=== PATIENT | male | born 1960 | race Caucasian/White ===

== ENCOUNTER 2020-08-08 10:00 | Outpatient (RCR) | payer MEDICARE, MEDICAID, SELFPAY ==
--- NOTE | 2020-08-08 17:27 | MHC.PT.EP ---
[facility] [place] Office [place] Office [place] Office [address] Coby Ponce [address] [phone] F: [phone] F: [phone] F: [phone] F: [phone] Physical Therapy Plan of Care Date of Evaluation: 08/08/20 Date of Surgery: Diagnosis: L knee pain. Assessment: Pt is a 59 y/o male with Hx of undefined cognitive deficits including poor short term memory who is referred to PT for eval and treat of L knee pain. Pt had recent seen this therapist for treatment of LBP/ knee pain though he does not remember this therapist. His knee pain is limiting his tolerance for negotiating stairs and curbs, as well as walking for fitness secondary to decreased B hip and knee strength, body habitus, as well as psychological factors which impact Pt's ability to be consistent with his daily activity. Pt is deemed an appropriate candidate to receive skilled PT in order to address his physical limitations to improve his functional ability. Frequency and Duration: The patient will be seen 2 x /wk x 5 wks. Short Term Goals: In 2 weeks: initiate HEP with evidence of compliance. Studio Technician Goals: In 5 weeks: Pt will report able to walk 1 mile with at most moderate difficulty; initial: unable or extreme difficulty. In 5 weeks: Pt will report negotiating 1 fl of stairs with at most moderate difficulty; initial: unable or extreme difficulty. Treatment Plan: Modalities to reduce pain, spasms and effusion. Manual therapy to restore motion and function. Therapeutic exercise to improve strength and flexibility. Neuromuscular re-education for posture and balance. Therapeutic activities to return to functional activities of daily living. Electronically signed by: Darci Walton PT. Please sign and return to therapist. Thank you for your referral.
== END 2020-12-27 19:39 | disposition home or self-care (01) ==
LOC: HO.PTCHIC 10:00
PROVIDERS: PCP Internal Medicine; Visit Provider Nurse Practitioner Family
DX: M25.562 Pain in left knee (principal)
CPT/HCPCS: 97110; 97162

== ENCOUNTER 2020-11-11 07:55 | Outpatient (REF) | payer MEDICARE, MEDICAID, SELFPAY ==
[2020-11-11 11:26] LABS: MANUAL DIFF FLAG NO
[2020-11-11 11:39] LABS: Basophils Absolute Auto 0.1 X10*3/uL (0.0-0.2); Basophils Percent Auto 0.7 % (0-2); Eosinophils Absolute Auto 0.3 X10*3/uL (0.0-0.4); Hemoglobin 13.6 g/dl (14.0-18.0); Imm Gran Abs Auto 0.04 X10*3/uL (0.00-0.03); Imm Gran Pct Auto 0.5 % (0.0-0.4); Lymphocytes Absolute Auto 1.6 X10*3/uL (1.2-4.9); Lymphocytes Percent Auto 19.4 % (20-40); Mean Corpuscular HGB Conc 32.4 g/dl (31.0-36.0); Mean Corpuscular Hemoglobin 27.5 pg (27.0-33.0); Mean Corpuscular Volume 84.8 fL (80-98); Mean Platelet Volume 10.6 fL (9.4-12.4); Monocytes Absolute Auto 0.6 X10*3/uL (0.1-1.2); Monocytes Percent Auto 6.8 % (2-11); Neutrophils Absolute Auto 5.7 X10*3/uL (2.0-8.3); Neutrophils Percent Auto 68.6 % (45-73); Platelet Count 256 X10*3/uL (160-400); Red Blood Count 4.95 X10*6/uL (4.60-5.80); Red Cell Distribution Width 14.6 % (11.0-16.0); White Blood Count 8.3 X10*3/uL (4.8-10.8)
[2020-11-11 12:04] LABS: Alanine Aminotransferase 17 U/L (0-40); Alkaline Phosphatase 104 U/L (39-117); Anion Gap 14 (12-20); Aspartate Amino Transferase 14 U/L (5-37); Bilirubin Total 0.3 mg/dL (0.0-1.0); Blood Urea Nitrogen 15 mg/dL (9-16); Calcium 9.1 mg/dL (8.4-10.2); Carbon Dioxide 26 mmol/L (22-29); Chloride 103 mmol/L (96-108); Cholesterol 163 mg/dL; Estimated Glomerular Filt Rate > 60; Glucose Fasting 132 mg/dL (60-99); HDL Cholesterol 57 mg/dL; LDL Cholesterol Calculated 89 mg/dl; Potassium 4.4 mmol/L (3.3-5.1); Sodium 139 mmol/L (135-145); Total Protein 7.3 g/dL (6.5-8.0); Triglycerides 87 mg/dL
[2020-11-11 12:07] LABS: TSH reflex Free T4 1.43 uIU/mL (0.32-4.0)
== END 2020-11-11 07:56 | disposition home or self-care (01) ==
LOC: HO.HMGCLDS 07:55
PROVIDERS: PCP Internal Medicine; Visit Provider Internal Medicine
DX: B35.1 Tinea unguium (principal); E66.01 Morbid (severe) obesity due to excess calories; I10 Essential (primary) hypertension; R21 Rash and other nonspecific skin eruption; R26.9 Unspecified abnormalities of gait and mobility; G47.9 Sleep disorder, unspecified
CPT/HCPCS: 36415; 80048; 80053; 80061; 84443; 85025

== ENCOUNTER → 2021-02-07 08:47 | Outpatient (BNVA) | payer MEDICARE, MEDICAID, SELFPAY | PROVIDERS: PCP Internal Medicine; Referring Provider Internal Medicine; Visit Provider Psychiatry & Neurology Neurology | DX: E66.01 Morbid (severe) obesity due to excess calories (principal); G47.33 Obstructive sleep apnea (adult) (pediatric); G47.00 Insomnia, unspecified; Z99.89 Dependence on other enabling machines and devices | CPT/HCPCS: 99202 ==

== ENCOUNTER 2021-05-22 11:08 | Emergency (ER) | payer MEDICARE, MEDICAID, SELFPAY ==
--- NOTE | 2021-05-22 11:19 | ED_ITS ---
HPI - Nausea/Vomiting/Diarrhea General Chief complaint: General Medical Stated complaint: NAUSEA, VOMITING Time Seen by Provider: 05/22/21 11:19 Source: patient Mode of arrival: EMS Limitations: no limitations History of Present Illness HPI Narrative: vaccinated x 3 MD elicited complaint: nausea, vomiting and diarrhea Onset (ago): day(s) (4) Description of vomiting: food contents and watery Associated nausea: Yes Associated abdominal pain: Yes Location of pain: diffuse Radiation: diffuse Pain consistency: intermittent Severity: mild Quality: cramping Exacerbating factors: eating Relieving factors: none Context: sick contacts (exposed to COVID 4 days ago) Associated symptoms: headaches, loss of appetite, malaise and nausea/vomiting Related Data Home Medications Medication Instructions Recorded Confirmed diazepam 5 mg tablet mg PO PRN 02/07/21 02/14/21 Previous Rx's Medication Instructions Recorded Shower chair #1 ea 02/21/21 empty container #1 ea 02/21/21 shower grab bars #1 02/21/21 polymyxin B sulfate 10,000 1 drp OPHTHALMIC (EYE) QID 7 Days 03/18/21 unit-trimethoprim 1 mg/mL eye #10 ml drops (Polytrim) lisinopril 5 mg tablet 5 mg PO DAILY 30 Days #30 tab 05/08/21 amlodipine 10 mg tablet 10 mg PO DAILY 90 Days #90 tab 05/15/21 ondansetron 4 mg disintegrating 4 mg PO Q8H PRN #20 tab 05/22/21 tablet Allergies Allergy/AdvReac Type Severity Reaction Status Date / Time codeine [CODEINE] Allergy Severe ANAPHYLAXIS, Verified 05/22/21 11:31 hives Codeine Allergy Unknown Hives Uncoded 05/22/21 11:31 Review of Systems Review of Systems: Constitutional : No Weight loss, No Fever, No Chills, pos malaise ENT/Mouth : No sore throat, No Rhinorrhea Eyes: No Swelling, No Redness Cardiovascular : No Chest Pain, No SOB, NoEdema Respiratory : No Cough, No Sputum, No Wheezing Gastrointestinal : Positive Nausea, Positive Vomiting, positive Diarrhea, positive abdominal Pain, No Hematochezia, No Melena Genitourinary : No Dysuria, No Urinary Frequency, No Hematuria, No Urgency Musculoskeletal : No joint pain, No Myalgias, No Joint Swelling Skin : No Skin Lesions, No rash Neuro : No Weakness, No Numbness, No Dizziness, No Headache Psych : No Anxiety/Panic, No Depression Heme/Lymph: No Bruising, No Lymphadenopathy Endocrine : No Polyuria, No Polydipsia All other systems reviewed and are negative. Gastrointestinal: Gastrointestinal: Reports nausea PMFSH Past Medical History Medical History Gait difficulty Hypertension, essential Memory deficit Morbid obesity Rash Toenail fungus Family History Family History Other Substance use disorder Social History Social History Housing: House Alcohol intake: never Patient Tobacco Use Status: Former Tobacco user (doesn't remember how long, but years ago ) e-Cigarette/Vaping Use: Never Used Second Hand Smoke Exposure: No Advance Directives: Yes Advance Directives Information Provided: No Advance Directives on File: No service: No Current occupational status: other Physical Exam Vital Signs: Vital Signs: Last Vital Signs Temp 98.4 F 05/22/21 11:20 Pulse 94 05/22/21 11:20 Resp 20 05/22/21 11:20 BP 123/90 H 05/22/21 11:20 Pulse Ox 97 05/22/21 11:20 BMI result Body Mass Index 47.5 Appearance: Alert. Oriented X3. No acute distress. Anxious Eyes: Pupils equal, round and reactive to light. ENT: Pharynx mild dry MM Neck: Normal inspection. Neck supple. CVS: Normal heart rate and rhythm. Pulses normal. Respiratory: No respiratory distress. Breath sounds normal. Abdomen: Soft and mild diffuse ttp Skin: Skin warm and dry. Normal skin color. Normal skin turgor. Extremities: No lower extremity edema. No calf ttp Neuro: Oriented X 3. No motor deficit. No sensory deficit. Course Course Course Narrative: tolerating PO - stable VS, labs reassuring , suspect COVID given exposure and symptoms MDM - Nausea/Vomiting/Diarrhea MDM Narrative Medical decision making narrative: 60 yo male with hx of HTN, NUBIA, vaccinated x 3 here with COVID exposure 5 days ago reports n/v/d and abdominal cramps with malaise for 4 days suspects COVID - at this time will obtain basic labs, IVF, anti-emetics. Has no localizing pain at this time to suggest GB or appendicitis pathology. Denies CP/SOB. At this time dispo per results and findings as well as PO tolerance. Lab Data Result diagrams: 05/22/21 11:48 05/22/21 11:48 Labs: Lab Results 05/22/21 05/22/21 05/22/21 Range/Units 11:35 11:48 11:48 WBC 12.1 H (4.8-10.8) X10*3/uL RBC 4.96 (4.60-5.80) X10*6/uL Hgb 14.3 (14.0-18.0) g/dl Hct 41.0 L (42.0-52.0) % MCV 82.7 (80.0-98.0) fL MCH 28.8 (27.0-33.0) pg MCHC 34.9 (31.0-36.0) g/dl RDW 13.9 (11.0-16.0) % Plt Count 212 (160-400) X10*3/uL MPV 9.8 (9.4-12.4) fL Immature Gran % (Auto) 0.6 H (0.0-0.4) % Neut % (Auto) 83.7 H (45-73) % Lymph % (Auto) 6.3 L (20-40) % Cavalier % (Auto) 8.7 (2-11) % Eos % (Auto) 0.4 (0-4) % Baso % (Auto) 0.3 (0-2) % Lymph # (Auto) 0.8 L (1.2-4.9) X10*3/uL Cavalier # (Auto) 1.1 (0.1-1.2) X10*3/uL Eos # (Auto) 0.1 (0.0-0.4) X10*3/uL Baso # (Auto) 0.0 (0.0-0.2) X10*3/uL Abs Immat Gran (auto) 0.07 H (0.00-0.03) X10*3/uL Absolute Neuts (auto) 10.2 H (2.0-8.3) x10*3/uL Absolute Nucleated RBC 0.000 (0.0-0.012) X10*3/uL Nucleated RBC % (auto) 0.0 (0.0-0.2) /100WBC Sodium 133 L (135-145) mmol/L Potassium 3.6 (3.3-5.1) mmol/L Chloride 100 (96-108) mmol/L Carbon Dioxide 23 (22-29) mmol/L Anion Gap 14 (12-20) BUN 12 (9-16) mg/dL Creatinine 1.07 (0.5-1.4) mg/dL Estim Creat Clear Calc 114.6 Estimated GFR > 60 Random Glucose 190 H (60-115) mg/dL Calcium 8.5 D (8.4-10.2) mg/dL Magnesium 2.0 (1.6-2.6) mg/dL Total Bilirubin 0.8 (0.0-1.0) mg/dL Direct Bilirubin 0.4 (0.0-0.5) mg/dL AST 33 D (5-37) U/L ALT 36 (0-40) U/L Alkaline Phosphatase 96 (39-117) U/L Total Protein 6.8 (6.5-8.0) g/dL Albumin 3.4 L (3.5-5.0) g/dL Lipase 8 (8-78) U/L COVID-19 (SHEMAR) Negative (Negative) COVID-19 Clin Com See Note Discharge Plan Discharge Clinical Impression: Acute viral syndrome Vomiting Qualifiers: Vomiting type: unspecified Nausea presence: with nausea Qualified Code(s): R11.2 - Nausea with vomiting, unspecified Instructions: Acute Nausea and Vomiting (ED), Viral Syndrome (ED) Additional Instructions: return to ED for any worsening symptoms or concerns COVID negative but can retest in 2 days, stay hydrated, monitor your breathing if you become so short of breath you cannot walk to your bathroom seek immediate medical help Prescriptions: New ondansetron 4 mg tablet,disintegrating 4 mg PO Q8H PRN (Reason: nausea and vomiting) Qty: 20 RF: 0 No Action (DME) Shower chair See Rx Instructions .Route .MEDSUPPLY Qty: 1 RF: 0 (DME) shower grab bars Standard 0 .Route .MEDSUPPLY Qty: 1 RF: 0 (DME) empty container Misc See Rx Instructions .Route Qty: 1 RF: 0 lisinopril 5 mg tablet 5 mg PO DAILY 30 Days Qty: 30 RF: 0 amlodipine 10 mg tablet 10 mg PO DAILY 90 Days Qty: 90 RF: 0 polymyxin B sulf-trimethoprim [Polytrim] 10,000 unit- 1 mg/mL drops 1 drp ophthalmic (eye) QID 7 Days Qty: 10 RF: 0 diazepam 5 mg tablet PO PRNRF: 0 Stand Alone Forms: Work/School Release
[2021-05-22 11:20] VITALS: BP 123/90; BP 150/80; PULSE 84; PULSE 94; RESP 20; TEMP 36.9; O2SAT 97; BMI 47.5
[2021-05-22 11:52] LABS: MANUAL DIFF FLAG NO
[2021-05-22 11:53] LABS: Basophils Percent Auto 0.3 % (0-2); Eosinophils Absolute Auto 0.1 X10*3/uL (0.0-0.4); Eosinophils Percent Auto 0.4 % (0-4); Hemoglobin 14.3 g/dl (14.0-18.0); Imm Gran Abs Auto 0.07 X10*3/uL (0.00-0.03); Imm Gran Pct Auto 0.6 % (0.0-0.4); Lymphocytes Absolute Auto 0.8 X10*3/uL (1.2-4.9); Lymphocytes Percent Auto 6.3 % (20-40); Mean Corpuscular HGB Conc 34.9 g/dl (31.0-36.0); Mean Corpuscular Hemoglobin 28.8 pg (27.0-33.0); Mean Corpuscular Volume 82.7 fL (80.0-98.0); Mean Platelet Volume 9.8 fL (9.4-12.4); Monocytes Absolute Auto 1.1 X10*3/uL (0.1-1.2); Monocytes Percent Auto 8.7 % (2-11); Neutrophils Absolute Auto 10.2 x10*3/uL (2.0-8.3); Neutrophils Percent Auto 83.7 % (45-73); Platelet Count 212 X10*3/uL (160-400); Red Blood Count 4.96 X10*6/uL (4.60-5.80); Red Cell Distribution Width 13.9 % (11.0-16.0); White Blood Count 12.1 X10*3/uL (4.8-10.8)
[2021-05-22 11:56] LABS: COVID-19 Test Negative (Negative); IDNOW Serial# 55D5AD1C
[2021-05-22 12:08] LABS: Alanine Aminotransferase 36 U/L (0-40); Albumin Level 3.4 g/dL (3.5-5.0); Alkaline Phosphatase 96 U/L (39-117); Anion Gap 14 (12-20); Aspartate Amino Transferase 33 U/L (5-37); Bilirubin Direct 0.4 mg/dL (0.0-0.5); Bilirubin Total 0.8 mg/dL (0.0-1.0); Blood Urea Nitrogen 12 mg/dL (9-16); Calcium 8.5 mg/dL (8.4-10.2); Carbon Dioxide 23 mmol/L (22-29); Chloride 100 mmol/L (96-108); Creatinine Clr Calc Pharmacy 114.6; Estimated Glomerular Filt Rate > 60; Glucose Random 190 mg/dL (60-115); Lipase 8 U/L (8-78); Potassium 3.6 mmol/L (3.3-5.1); Sodium 133 mmol/L (135-145); Total Protein 6.8 g/dL (6.5-8.0)
[2021-05-22] MEDS: 0.9 % Sodium Chloride 1,000 ML 999 ML IVCONT (12:39)
[2021-05-22] MEDS: Metoclopramide HCl 10 MG/2 ML VIAL IVPUSH (12:39)
[2021-05-22] MEDS: diphenhydrAMINE HCL 50 MG/ML VIAL 25 MG IVPUSH (12:39)
[2021-05-22] MEDS: Acetaminophen 325 MG TABLET 650 MG PO (14:37)
== END 2021-05-22 16:25 | disposition home or self-care (01) ==
LOC: HO.ED 11:33
PROVIDERS: Emergency Provider Emergency Medicine; PCP Internal Medicine
DX: B34.9 Viral infection, unspecified (principal); R11.2 Nausea with vomiting, unspecified; Z20.822 Contact with and (suspected) exposure to COVID-19; I10 Essential (primary) hypertension
CPT/HCPCS: 80048; 80076; 83690; 83735; 85025; 87635; 96361; 96374; 96375; 99283; 99284; J1200; J2765

== ENCOUNTER → 2021-11-15 13:47 | Outpatient (BNVA) | payer MEDICARE, MEDICAID, SELFPAY | PROVIDERS: PCP Internal Medicine; Visit Provider Nurse Practitioner Family | DX: G47.33 Obstructive sleep apnea (adult) (pediatric) (principal); Z99.89 Dependence on other enabling machines and devices | CPT/HCPCS: 99212 ==

== ENCOUNTER 2022-02-02 09:20 | Outpatient (REF) | payer MEDICARE, MEDICAID, SELFPAY ==
--- NOTE | ~2022-02-02 | US_ITS ---
EXAMINATION: US ABDOMEN COMPLETE CLINICAL INFORMATION: Right upper quadrant pain. Evaluate liver and rule out hernia. COMPARISON: CT abdomen and pelvis 01/21/2017. TECHNIQUE: Real-time imaging of the abdominal viscera. Technically limited study secondary to body habitus. FINDINGS: PANCREAS: Not well visualized due to bowel gas ABDOMINAL AORTA: Not well visualized due to bowel gas INFERIOR VENA CAVA: Not well visualized due to bowel gas LIVER: Liver echotexture is increased. The liver contour is normal. No focal hepatic lesion. There is no intrahepatic biliary duct dilatation seen. GALLBLADDER: Surgically absent. COMMON BILE DUCT: Normal in caliber measuring 0.59 cm in diameter. RIGHT KIDNEY: Normal. No hydronephrosis. No renal calculi or focal parenchymal lesions. The kidney measures 13.3 cm in maximum dimension. LEFT KIDNEY: Normal. No hydronephrosis. No renal calculi or focal parenchymal lesions. The kidney measures 12.3 cm in maximum dimension. SPLEEN: Normal. The spleen measures 12.0 cm in maximum dimension. FREE FLUID: None. No obvious hernia seen by ultrasound US/US abdomen complete IMPRESSION: Limited exam. Echogenic liver probably representing fatty infiltration. No hernia appreciated by ultrasound.
== END 2022-02-02 09:21 | disposition home or self-care (01) ==
LOC: HO.HMGCX 09:20
PROVIDERS: Visit Provider Internal Medicine
DX: R10.11 Right upper quadrant pain (principal)
CPT/HCPCS: 76700

== ENCOUNTER → 2022-05-21 13:11 | Outpatient (BNVA) | payer MEDICARE, MEDICAID, SELFPAY | PROVIDERS: PCP Internal Medicine; Visit Provider Nurse Practitioner Family | DX: G47.33 Obstructive sleep apnea (adult) (pediatric) (principal); Z99.89 Dependence on other enabling machines and devices | CPT/HCPCS: 99212 ==

== ENCOUNTER 2022-06-23 07:51 | Outpatient (REF) | payer MEDICARE, MEDICAID, SELFPAY ==
[2022-06-23 12:07] LABS: Alanine Aminotransferase 19 U/L (0-40); Albumin Level 3.9 g/dL (3.5-5.0); Alkaline Phosphatase 76 U/L (39-117); Anion Gap 16 (12-20); Aspartate Amino Transferase 13 U/L (5-37); Bilirubin Total 0.6 mg/dL (0.0-1.0); Blood Urea Nitrogen 16 mg/dL (9-16); Calcium 8.9 mg/dL (8.4-10.2); Carbon Dioxide 24 mmol/L (22-29); Chloride 105 mmol/L (96-108); Estimated Glomerular Filt Rate > 60; Glucose Random 124 mg/dL (60-115); Potassium 4.2 mmol/L (3.3-5.1); Sodium 141 mmol/L (135-145)
== END 2022-06-23 07:52 | disposition home or self-care (01) ==
LOC: HO.HMGCLDS 07:51
PROVIDERS: PCP Internal Medicine; Visit Provider Internal Medicine
DX: E66.01 Morbid (severe) obesity due to excess calories (principal); I10 Essential (primary) hypertension
CPT/HCPCS: 36415; 80053

== ENCOUNTER → 2022-07-20 08:59 | Outpatient (BNVA) | payer MEDICARE, MEDICAID, SELFPAY | PROVIDERS: PCP Nurse Practitioner Family; Visit Provider Nurse Practitioner Family | DX: G47.33 Obstructive sleep apnea (adult) (pediatric) (principal); Z99.89 Dependence on other enabling machines and devices | CPT/HCPCS: 99212 ==

== ENCOUNTER → 2022-08-13 19:30 | Outpatient (REF) | payer MEDICARE, MEDICAID, SELFPAY | LOC: HO.SL 19:30 | PROVIDERS: PCP Nurse Practitioner Family; Visit Provider Nurse Practitioner Family | DX: G47.33 Obstructive sleep apnea (adult) (pediatric) (principal) | CPT/HCPCS: 95811 ==

== ENCOUNTER 2022-11-14 09:06 | Outpatient (AMB) | payer MEDICARE, MEDICAID, SELFPAY ==
[2022-11-14 09:10] VITALS: BP 160/72; PULSE 85; O2SAT 94; BMI 52.0
--- NOTE | 2022-11-14 09:10 | A.OFFPC_ITS ---
Vital Signs 11/14/22 09:10 Height 6 ft 1 in Weight 394 lb BMI 52.0 BP 160/72 H Blood Pressure Location Lt brachial Position Sitting Pulse 85 Pulse Source Pulse Oximeter Pulse Oximetry (%) 94 Oxygen Delivery Method Room Air Intake Visit Reasons: PE Allergies codeine [CODEINE] Allergy (Severe, Verified 11/14/22 09:12) ANAPHYLAXIS, hives Tobacco use date assessed: 11/14/22 Fall risk assessment: No Falls in past year Last assessed Fall Risk: 11/14/22 Dental Screening Dental Screen Date: 11/14/22 Did you have a dental visit in the last 12 months?: No Did you have a dental problem in the last 6 months where you did not have access to dental care?: No Was dental information given to patient?: No HPI PE HPI Details Pt is here for a PE. Will order labs. Pt uses a CPAP daily. Due for PSA, will order. Denies dribbling with urination, weak stream, and nocturia. Due for colon screen, will refer to GI. Pt c/o increased depression. He sees a therapist weekly. Will have team speak with pt. Denies any SI and HI. Hx of memory deficit since 2003, unknown cause. [facility] Medical History Agoraphobia Anxiety COVID-19 vaccine series completed Depression Gait difficulty GERD (gastroesophageal reflux disease) Hypertension, essential Impaired fasting glucose Memory deficit Morbid obesity Rash Sleep apnea TIA (transient ischemic attack) Toenail fungus Surgical History H/O colonoscopy History of esophagogastroduodenoscopy (EGD) Hx of appendectomy Hx of arthroscopic knee surgery Hx of cholecystectomy Family History Sister Dementia Other Substance use disorder Social History Housing: House Are you a primary child care provider to a significant other at home: No Do you presently have visiting nurse or other home services: No Alcohol intake: never Patient Tobacco Use Status: Former Tobacco user Quit Date: age 40 Tobacco use type: Cigarette e-Cigarette/Vaping Use: Never Used Second Hand Smoke Exposure: No Substance Use Type: Marijuana service: No Current occupational status: other Cognitive needs: No Hearing needs: No Vision needs: Yes Questionnaire Thrive Questionnaire Date Thrive assessed: 11/11/20 AUDIT C Alcohol Use Questionnaire (AUDIT-C) 1. How often do you have a drink containing alcohol?: Never 3. How often do you have six or more drinks on one occasion?: Never Total Score: 0 Review of Systems Const Denies chills and Denies fever(s) Eyes Denies blurry vision ENT Denies vertigo, Denies dizziness and Denies sore throat Card Denies chest pain at rest, Denies chest pain with activity, Denies diaphoresis, Denies dyspnea and Denies dyspnea on exertion Resp Denies cough, Denies dyspnea, Denies dyspnea on exertion and Denies wheezing GI Denies abdominal pain, Denies melena, Denies hematochezia, Denies constipation, Denies diarrhea and Denies loose stools Denies hematuria Musc Denies numbness and Denies tingling Skin/Breast Denies lesions Neuro Denies vertigo, Denies dizziness, Denies numbness and Denies tingling Psych Denies anxiety, Denies depression, Denies homicidal ideation, Denies suicidal ideation and Denies other (substance abuse) Aller/Immun Denies wheezing Physical exam (Primary Care) Vital Signs: Last Vital Signs Pulse 85 11/14/22 09:10 BP 160/72 H 11/14/22 09:10 Pulse Ox 94 11/14/22 09:10 Oxygen Delivery Method Room Air 11/14/22 09:10 BMI result Body Mass Index 52.0 Tobacco/Smoking Status: Tobacco use Status Tobacco use date assessed 11/14/22 11/14/22 09:16 Patient Tobacco Use Status Former Tobacco user 11/14/22 09:12 Tobacco use type Cigarette 11/14/22 09:12 e-Cigarette/Vaping Use Never Used 11/14/22 09:12 Thrive Assessment: Date of Thrive Assessment Date Thrive assessed 11/11/20 11/14/22 09:12 Const General: cooperative Nutritional Appearance: obese morbidly obese Orientation/consciousness: patient oriented x3 HENMT Head: Yes normal to inspection, Yes normocephalic and Yes atraumatic Ears: TM's normal bilaterally Eyes General: appearance normal, both eyes and all related structures Alignment and Position: alignment normal and position normal Neck Neck: Yes normal visual inspection and Yes no lymphadenopathy Thyroid: Thyroid normal Resp Effort & Inspection: normal respiratory effort Auscultation: clear to auscultation bilaterally Cardio Rate: regular rate Rhythm: regular rhythm Heart sounds: S1 normal heart sound present, S2 normal heart sound present and no murmurs GI Palpation (GI): Soft to palpation and nontender Auscultation: normal bowel sounds Male General Exam: Yes normal external exam Penis: normal penis Scrotum: scrotum normal, testes descended bilaterally and no inguinal hernias Testes: no testicular mass Skin Rashes: no rashes Neuro General: patient oriented x3, moves all extremities, no focal motor deficits and deep tendon reflexes 2+ bilaterally Romberg Test: Negative Psych Appearance: grossly normal Mental Status: mental status grossly normal Speech and movement: Normal speech and movement present Affect: normal affect Attitude: cooperative Thought process: Normal thought process present Thought content: Normal thought content present Insight: Good insight present (Psych) Judgement: Good judgement present (Psych) Assessment and Plan Assessment & Plan (1) Physical exam: Code(s): Z00.00 - Encounter for general adult medical examination without abnormal findings Plan: Labs ordered (2) Screening PSA (prostate specific antigen): Code(s): Z12.5 - Encounter for screening for malignant neoplasm of prostate Plan: PSA ordered (3) Screening for colon cancer: Code(s): Z12.11 - Encounter for screening for malignant neoplasm of colon Plan: Referred to GI (4) Memory deficit: Code(s): R41.3 - Other amnesia (5) Upset stomach: Code(s): K30 - Functional dyspepsia Plan The patient agreed to the use of a medical front desk coordinator for this encounter. Scribed for LEN Madden- by Francisca Costa medical front desk coordinator, on 11/14/2022 at 09:20 EST. Orders: Orders Comprehensive [place]. Panel Fast Today Z00.00 - Encounter for general adult medical examination without abnormal findings Lipid Panel Today Z00.00 - Encounter for general adult medical examination without abnormal findings TSH reflex Free T4 Today Z00.00 - Encounter for general adult medical examination without abnormal findings Complete Blood Count Auto Diff Today Z00.00 - Encounter for general adult medical examination without abnormal findings UA CC w/rflx Micro + Cult Today Z00.00 - Encounter for general adult medical examination without abnormal findings Prostate Specific Antigen Scr Today Z12.5 - Encounter for screening for malignant neoplasm of prostate Vitamin B12 and Folate Today R41.3 - Other amnesia Homocysteine Today R41.3 - Other amnesia Methylmalonic Acid Today R41.3 - Other amnesia Endomysial IgA rflx Titer Today K30 - Functional dyspepsia Transglutaminase IgA Today K30 - Functional dyspepsia Referrals Gastroenterology Referral Z12.11 - Encounter for screening for malignant neoplasm of colon Medications: Changed From lisinopril 5 mg PO DAILY 30 days 90 tabs 0RF To lisinopril 10 mg PO DAILY 30 tabs 3RF 30 days Coding Level of Care Code New Pt Prev Care 40-64y(09934) Diagnoses Physical exam Z00.00 Screening PSA (prostate specific antigen) Z12.5 Screening for colon cancer Z12.11 Memory deficit R41.3 Upset stomach K30
== END 2022-11-14 10:16 | disposition home or self-care (01) ==
PROVIDERS: Visit Provider Nurse Practitioner Family
DX: Z00.00 Encounter for general adult medical examination without abnormal findings (principal); Z12.5 Encounter for screening for malignant neoplasm of prostate; Z12.11 Encounter for screening for malignant neoplasm of colon; R41.3 Other amnesia; K30 Functional dyspepsia
CPT/HCPCS: 99386

== ENCOUNTER 2022-11-29 07:46 | Outpatient (REF) | payer MEDICARE, MEDICAID, SELFPAY ==
[2022-11-29 11:17] LABS: MANUAL DIFF FLAG NO
[2022-11-29 11:37] LABS: Appearance Urine Clear; Color Urine Yellow; Glucose Urine UA Negative (Negative); Leukocyte Esterase Urine Negative (Negative); Nitrite Urine Negative (Negative); Specific Gravity - Urine 1.015 (1.005-1.025); Urine Blood Negative (Negative); Urine Ketones Negative (Negative); Urine Protein Negative (Neg-Trace)
[2022-11-29 12:15] LABS: Basophils Percent Auto 0.5 % (0-2); Eosinophils Absolute Auto 0.3 X10*3/uL (0.0-0.4); Hematocrit 43.2 % (42.0-52.0); Hemoglobin 14.1 g/dl (14.0-18.0); Imm Gran Abs Auto 0.03 X10*3/uL (0.00-0.03); Imm Gran Pct Auto 0.4 % (0.0-0.4); Lymphocytes Absolute Auto 1.9 X10*3/uL (1.2-4.9); Lymphocytes Percent Auto 24.4 % (20-40); Mean Corpuscular HGB Conc 32.6 g/dl (31.0-36.0); Mean Corpuscular Hemoglobin 27.9 pg (27.0-33.0); Mean Corpuscular Volume 85.5 fL (80.0-98.0); Mean Platelet Volume 10.7 fL (9.4-12.4); Monocytes Absolute Auto 0.6 X10*3/uL (0.1-1.2); Monocytes Percent Auto 7.8 % (2-11); Neutrophils Absolute Auto 4.9 x10*3/uL (2.0-8.3); Neutrophils Percent Auto 62.9 % (45-73); Platelet Count 246 X10*3/uL (160-400); Red Blood Count 5.05 X10*6/uL (4.60-5.80); Red Cell Distribution Width 14.6 % (11.0-16.0); White Blood Count 7.7 X10*3/uL (4.8-10.8)
[2022-11-29 13:03] LABS: Folate 10.8 ng/mL (> or = 4.0); Prostate Specific Antigen Scr 0.33 ng/mL (<0.05-4.0); Vitamin B12 475 pg/mL (200-900)
[2022-11-29 13:06] LABS: Alanine Aminotransferase 17 U/L (0-40); Albumin Level 3.7 g/dL (3.5-5.0); Alkaline Phosphatase 68 U/L (39-117); Aspartate Amino Transferase 14 U/L (5-37); Bilirubin Total 0.4 mg/dL (0.0-1.0); Blood Urea Nitrogen 13 mg/dL (9-16); Carbon Dioxide 22 mmol/L (22-29); Chloride 103 mmol/L (96-108); Cholesterol 151 mg/dL; Estimated Glomerular Filt Rate > 60; Glucose Fasting 109 mg/dL (60-99); HDL Cholesterol 53 mg/dL; LDL Cholesterol Calculated 84 mg/dl; Sodium 137 mmol/L (135-145); TSH reflex Free T4 1.39 uIU/mL (0.32-4.0); Total Protein 7.3 g/dL (6.5-8.0); Triglycerides 70 mg/dL
[2022-11-29 13:09] LABS: Anion Gap 16 (12-20)
[2022-11-30 19:39] LABS: Homocysteine 11.9 umol/L (<11.4)
[2022-12-03 22:19] LABS: Transglutaminase IgA <1.0 U/mL
[2022-12-03 23:19] LABS: Methylmalonic Acid 121 nmol/L (87-318)
[2022-12-06 14:09] LABS: Endomysial IgA Antibody Negative (Negative)
== END 2022-11-29 07:47 | disposition home or self-care (01) ==
LOC: HO.HMGCLDS 07:46
PROVIDERS: PCP Nurse Practitioner Family; Visit Provider Nurse Practitioner Family
DX: Z00.00 Encounter for general adult medical examination without abnormal findings (principal); R41.3 Other amnesia; K30 Functional dyspepsia; Z12.5 Encounter for screening for malignant neoplasm of prostate
CPT/HCPCS: 36415; 80053; 80061; 81003; 82607; 82746; 83090; 83921; 84153; 84443; 85025; 86231; 86364

== ENCOUNTER 2022-12-05 10:39 | Outpatient (AMB) | payer MEDICARE, MEDICAID, SELFPAY ==
--- NOTE | 2022-12-05 10:41 | MHC.OFFVIS ---
Intake Vital Signs 12/05/22 10:47 Weight 392 lb BP 110/70 Blood Pressure Location Rt brachial Position Sitting Pulse 85 Pulse Oximetry (%) 97 Oxygen Delivery Method Room Air Intake Visit Reasons: 2m follow up SHARATH - LVM Intake Note: F/U Sharath Track Worker Required: No Allergies codeine [CODEINE] Allergy (Severe, Verified 12/05/22 10:44) ANAPHYLAXIS, hives HPI HPI Comments History of Present Illness Details 62 y/o male patient presents for follow up of SHARATH on CPAP. Pt had a split night sleep study done. The baseline portion of the study was significant for a severe degree of sleep apnea. The AHI was 74/hr and oxygen bernardino was 83%. Pt was trialed on CPAP [id number], breathing and oxygenation stabilized on CPAP at [id number]. Pt started CPAP at [id number]. The compliance and therapy response (08/25/22-11/22/22) reviewed. The usage days 73% and the average usage hours 5 hrs 30 min. The residual AHI was 11.5/hr. He still wakes up frequently. He goes to bed 9 pm, but wakes up 11- 1 am. and watch TV and then go back to sleep for 2-3 hours. He tried melatonin, but it makes him lethargic next day. [facility] Medical History Agoraphobia Anxiety COVID-19 vaccine series completed Depression Gait difficulty GERD (gastroesophageal reflux disease) Hypertension, essential Impaired fasting glucose Memory deficit Morbid obesity Rash Sleep apnea TIA (transient ischemic attack) Toenail fungus Surgical History H/O colonoscopy History of esophagogastroduodenoscopy (EGD) Hx of appendectomy Hx of arthroscopic knee surgery Hx of cholecystectomy Family History Sister Dementia Other Substance use disorder Social History (Updated 12/05/22 @ 10:47 by Berta Ga CMA) Housing: House Are you a primary adult care provider to a significant other at home: No Do you presently have visiting nurse or other home services: No Alcohol intake: never Patient Tobacco Use Status: Former Tobacco user Quit Date: age 40 Tobacco use type: Cigarette e-Cigarette/Vaping Use: Never Used Second Hand Smoke Exposure: No Substance Use Type: Marijuana service: No Current occupational status: other Cognitive needs: No Hearing needs: No Vision needs: Yes Review of Systems Const All systems reviewed & are unremarkable except as noted in HPI and below Physical Exam Vital Signs: Last Vital Signs Pulse 85 12/05/22 10:47 BP 110/70 12/05/22 10:47 Pulse Ox 97 12/05/22 10:47 Oxygen Delivery Method Room Air 12/05/22 10:47 Const General: cooperative and comfortable Nutritional Appearance: obese Orientation/consciousness: patient oriented x3 Resp Effort & Inspection: normal respiratory effort and able to speak in complete sentences Neuro General: patient oriented x3, gait normal, moves all extremities and CN's II-XI intact bilaterally Psych Appearance: grossly normal Mental Status: mental status grossly normal Speech and movement: Normal speech and movement present Assessment & Plan Assessment & Plan (1) Obstructive sleep apnea on CPAP: Code(s): G47.33 - Obstructive sleep apnea (adult) (pediatric); Z99.89 - Dependence on other enabling machines and devices Plan Advised patient to continue to use CPAP at [id number]. Stressed compliance, CPAP every night, clean mask and tubing routinely. Advised patient to try melatonin 1 mg 1-3 tabs q HS to help him maintain sleep. Medications: New melatonin 1-3 tabs orally bedtime PRN; 90 tabs 3RF sleep 30 days Coding Level of Care Code Est Pt Level 3 (88335) Diagnoses Obstructive sleep apnea on CPAP G47.33; Z99.89
[2022-12-05 10:47] VITALS: BP 110/70; PULSE 85; O2SAT 97
== END 2022-12-05 11:15 | disposition home or self-care (01) ==
PROVIDERS: Visit Provider Nurse Practitioner Family
DX: G47.33 Obstructive sleep apnea (adult) (pediatric) (principal); Z99.89 Dependence on other enabling machines and devices
CPT/HCPCS: 99213

== ENCOUNTER → 2022-12-05 10:39 | Outpatient (BNVA) | payer MEDICARE, MEDICAID, SELFPAY | PROVIDERS: Visit Provider Nurse Practitioner Family | DX: G47.33 Obstructive sleep apnea (adult) (pediatric) (principal); Z99.89 Dependence on other enabling machines and devices | CPT/HCPCS: 99212 ==

== ENCOUNTER 2023-01-24 12:12 | Outpatient (AMB) | payer MEDICARE, MEDICAID, SELFPAY ==
[2023-01-24 12:13] VITALS: BP 136/80; PULSE 68; TEMP 36.2; O2SAT 96; BMI 51.2
--- NOTE | 2023-01-24 12:13 | MHC.OFFWIV ---
Intake Vital Signs 01/24/23 12:13 Height 6 ft 1 in Weight 388 lb BMI 51.2 BP 136/80 Blood Pressure Location Rt brachial Position Sitting Pulse 68 Pulse Source Pulse Oximeter Temp 97.2 F Temp Source Temporal Artery Scan Pulse Oximetry (%) 96 Intake Visit Reasons: EST/cut on finger Intake Note: pt is here for c/o cut on finger, rick woodchizel Patient Tobacco Use Status: Former Tobacco user Quit Date: age 40 Allergies codeine [CODEINE] Allergy (Severe, Verified 01/24/23 12:16) ANAPHYLAXIS, hives Do you need a note to return to daycare/school/sports/work: Yes HPI HPI Comments History of Present Illness Details The patient presents emergency department for evaluation of laceration to left hand 2nd digit. Patient was using a wooden gouging tool that was rick and slipped and cut his finger yesterday evening. He cleaned up the wound and bandaged it. Patient is concerned he may need stitches and a tetanus. [facility] Medical History Agoraphobia Anxiety COVID-19 vaccine series completed Depression Gait difficulty GERD (gastroesophageal reflux disease) Hypertension, essential Impaired fasting glucose Memory deficit Morbid obesity Rash Sleep apnea TIA (transient ischemic attack) Toenail fungus Surgical History H/O colonoscopy History of esophagogastroduodenoscopy (EGD) Hx of appendectomy Hx of arthroscopic knee surgery Hx of cholecystectomy Family History Sister Dementia Other Substance use disorder Social History (Updated 12/05/22 @ 10:47 by Berta Ga CMA) Housing: House Are you a primary career technical education teacher to a significant other at home: No Do you presently have visiting nurse or other home services: No Alcohol intake: never Patient Tobacco Use Status: Former Tobacco user Quit Date: age 40 Tobacco use type: Cigarette e-Cigarette/Vaping Use: Never Used Second Hand Smoke Exposure: No Substance Use Type: Marijuana service: No Current occupational status: other Cognitive needs: No Hearing needs: No Vision needs: Yes Review of Systems Eyes Reports no additional complaints ENT Reports Normal hearing present and Denies dysphagia Card Denies dyspnea and Denies slow heart rate Resp Denies cough and Denies dyspnea GI Denies dysphagia and Denies heartburn Denies dysuria Musc Denies tingling Skin/Breast Reports lesions, Denies skin ulcer and Denies unusual bruising Neuro Reports Normal hearing present, Denies Sensory deficit (Neuro), Denies tingling and Denies paresthesias Physical Exam Vital Signs: Last Vital Signs Temp 97.2 F 01/24/23 12:13 Pulse 68 01/24/23 12:13 BP 136/80 01/24/23 12:13 Pulse Ox 96 01/24/23 12:13 BMI result Body Mass Index 51.2 Const General: healthy appearing and no acute distress Resp Effort & Inspection: normal respiratory effort and able to speak in complete sentences Skin Other: 1 cm laceration to the medial border of the left hand 2nd digit. No active bleeding wound edges do not gape or open when the finger moves. Does not extend through the full-thickness the epidermis. Neuro Cranial nerves: Yes Normal hearing present Sensory Exam: No Sensory deficit (Neuro) Assessment & Plan Assessment & Plan (1) Superficial laceration: Code(s): T14.8XXA - Other injury of unspecified body region, initial encounter Plan Superficial laceration that does not require stitches or glue. Wound we cleaned in urgent care and bandage. Tetanus updated today. Coding Level of Care Code Est Pt Level 3 (73595) Diagnoses Superficial laceration T14.8XXA
== END 2023-01-24 12:34 | disposition home or self-care (01) ==
PROVIDERS: PCP Nurse Practitioner Family; Visit Provider Emergency Medicine
DX: S61.211A Laceration without foreign body of left index finger without damage to nail, initial encounter (principal); T14.8XXA Other injury of unspecified body region, initial encounter; Z23 Encounter for immunization
CPT/HCPCS: 90471; 90715; 99213

== ENCOUNTER → 2023-01-24 14:45 | Outpatient (BNVA) | payer MEDICARE, MEDICAID, SELFPAY | PROVIDERS: PCP Nurse Practitioner Family; Visit Provider Nurse Practitioner ==

== ENCOUNTER 2023-04-24 15:44 | Outpatient (AMB) | payer MEDICARE, MEDICAID, SELFPAY ==
[2023-04-24 15:48] VITALS: BP 124/80; PULSE 99; O2SAT 97; BMI 51.1
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
== END 2023-04-24 16:44 | disposition home or self-care (01) ==
PROVIDERS: PCP Nurse Practitioner Family; Visit Provider Nurse Practitioner Family
DX: F41.9 Anxiety disorder, unspecified (principal); E66.01 Morbid (severe) obesity due to excess calories; Z68.43 Body mass index [BMI] 50.0-59.9, adult
CPT/HCPCS: 99213

== ENCOUNTER 2023-06-25 13:41 | Outpatient (AMB) | payer MEDICARE, MEDICAID, SELFPAY ==
--- NOTE | 2023-06-25 13:45 | A.OFFVIS_ITS ---
Intake Vital Signs 06/25/23 13:51 Height 6 ft 1 in Weight 386 lb 2 oz BMI 50.9 BP 124/80 Blood Pressure Location Lt brachial Position Sitting Pulse 70 Pulse Source Pulse Oximeter Pulse Oximetry (%) 96 Oxygen Delivery Method Room Air Intake Visit Reasons: f/u for NUBIA-CONF Intake Note: Patient presents for NUBIA f/u. Still gets up at night and forgot memory card Allergies codeine [CODEINE] Allergy (Severe, Verified 06/25/23 13:49) ANAPHYLAXIS, hives HPI HPI Comments History of Present Illness Details 62 y/o male patient presents for follow up of NUBIA on CPAP. The compliance and therapy response (03/27/23-06/24/23) reviewed. The usage days 100% and the average usage hours 5 hrs 30 min. He is on CPAP at [id number]. The residual AHI was 9/hr. Pt had a split night sleep study done. The baseline portion of the study was significant for a severe degree of sleep apnea. The AHI was 74/hr and oxygen bernardino was 83%. Pt was trialed on CPAP [id number], breathing and oxygenation stabilized on CPAP at [id number]. Pt reports he still wakes up frequently. He goes to bed 9 pm, but wakes up 11- 1 am, and watch TV and then go back to sleep for 2-3 hours. He tried melatonin 1 mg, but it makes him groggy the next day. [facility] Medical History COVID-19 vaccine series completed Agoraphobia Anxiety Impaired fasting glucose GERD (gastroesophageal reflux disease) Depression TIA (transient ischemic attack) Sleep apnea Memory deficit Morbid obesity Toenail fungus Rash Hypertension, essential Gait difficulty Surgical History H/O colonoscopy Hx of arthroscopic knee surgery Hx of appendectomy Hx of cholecystectomy History of esophagogastroduodenoscopy (EGD) Family History Sister Dementia Other Substance use disorder Social History Housing: House Are you a primary spiritual care coordinator to a significant other at home: No Do you presently have visiting nurse or other home services: No Alcohol intake: never Patient Tobacco Use Status: Former Tobacco user Quit Date: age 40 Tobacco use type: Cigarette e-Cigarette/Vaping Use: Never Used Second Hand Smoke Exposure: No Substance Use Type: Marijuana service: No Current occupational status: other Cognitive needs: No Hearing needs: No Vision needs: Yes Review of Systems Const All systems reviewed & are unremarkable except as noted in HPI and below Physical Exam Vital Signs: Last Vital Signs Pulse 70 06/25/23 13:51 BP 124/80 06/25/23 13:51 Pulse Ox 96 06/25/23 13:51 Oxygen Delivery Method Room Air 06/25/23 13:51 BMI result Body Mass Index 50.9 Const General: cooperative and comfortable Nutritional Appearance: obese Orientation/consciousness: patient oriented x3 Resp Effort & Inspection: normal respiratory effort and able to speak in complete sentences Neuro General: patient oriented x3, gait normal, moves all extremities and CN's II-XI intact bilaterally Psych Appearance: grossly normal Mental Status: mental status grossly normal Speech and movement: Normal speech and movement present Assessment & Plan Assessment & Plan (1) Obstructive sleep apnea on CPAP: Code(s): G47.33 - Obstructive sleep apnea (adult) (pediatric); Z99.89 - Dependence on other enabling machines and devices Plan Advised patient to continue to use CPAP at [id number]. Stressed compliance, CPAP every night, clean mask and tubing routinely. Sleep hygiene education provided, advised patient to not to watch TV or playing with phone when he wakes up in the middle of night. Encouraged patient to do daily exercise. Medications: New magnesium oxide 400 mg PO DAILY 90 tabs 1RF 90 days Coding Level of Care Code Est Pt Level 3 (92723) Diagnoses Obstructive sleep apnea on CPAP G47.33; Z99.89
[2023-06-25 13:51] VITALS: BP 124/80; PULSE 70; O2SAT 96; BMI 50.9
== END 2023-06-25 14:15 | disposition home or self-care (01) ==
PROVIDERS: PCP Nurse Practitioner Family; Visit Provider Nurse Practitioner Family
DX: G47.33 Obstructive sleep apnea (adult) (pediatric) (principal); Z99.89 Dependence on other enabling machines and devices
CPT/HCPCS: 99213

== ENCOUNTER → 2023-06-25 13:41 | Outpatient (BNVA) | payer MEDICARE, MEDICAID, SELFPAY | PROVIDERS: PCP Nurse Practitioner Family; Visit Provider Nurse Practitioner Family | DX: G47.33 Obstructive sleep apnea (adult) (pediatric) (principal); Z99.89 Dependence on other enabling machines and devices | CPT/HCPCS: 99212 ==

== ENCOUNTER 2023-08-01 14:47 | Outpatient (AMB) | payer MEDICARE, SELFPAY ==
--- NOTE | 2023-08-01 14:50 | A.OFFPC_ITS ---
Vital Signs 08/01/23 14:51 Height 6 ft 1 in Weight 379 lb 2 oz BMI 50.0 BP 132/84 Blood Pressure Location Lt brachial Position Sitting Pulse 97 Pulse Source Pulse Oximeter Pulse Oximetry (%) 98 Oxygen Delivery Method Room Air Intake Visit Reasons: Follow up on memory issues Intake Note: pt is here for follow up regarding memory issues Rn Cardiovascular Required: No Accompanied by: Self / Same As Patient Allergies codeine [CODEINE] Allergy (Severe, Verified 08/01/23 14:51) ANAPHYLAXIS, hives Tobacco use date assessed: 08/01/23 Fall risk assessment: No Falls in past year Last assessed Fall Risk: 08/01/23 Dental Screening Dental Screen Date: 08/01/23 Did you have a dental visit in the last 12 months?: Yes Did you have a dental problem in the last 6 months where you did not have access to dental care?: No Was dental information given to patient?: Patient has dentist HPI Follow up on memory issues HPI Details Pt reports increased anxiety. He reports issues with his son that are causing him to be anxious. Pt believes his son has schizophrenia and he is very paranoid. Pt also has trouble sleeping. He does use marijuana intermittently for anxiety which he reports is helpful. Pt does not see a therapist, does not want a therapist or medication for depression/anxiety. Will send trazodone 100mg. Denies any SI and HI. [facility] Medical History COVID-19 vaccine series completed Agoraphobia Anxiety Impaired fasting glucose GERD (gastroesophageal reflux disease) Depression TIA (transient ischemic attack) Sleep apnea Memory deficit Morbid obesity Toenail fungus Rash Hypertension, essential Gait difficulty Surgical History H/O colonoscopy Hx of arthroscopic knee surgery Hx of appendectomy Hx of cholecystectomy History of esophagogastroduodenoscopy (EGD) Family History Sister Dementia Other Substance use disorder Social History Housing: House Are you a primary dialysis patient care technician to a significant other at home: No Do you presently have visiting nurse or other home services: No Alcohol intake: never Patient Tobacco Use Status: Former Tobacco user Quit Date: age 40 Tobacco use type: Cigarette e-Cigarette/Vaping Use: Never Used Second Hand Smoke Exposure: No Substance Use Type: Marijuana service: No Current occupational status: other Cognitive needs: No Hearing needs: No Vision needs: Yes Questionnaire PHQ-9 Over the last 2 weeks, how often have you been bothered by any of the following problems? 30525 - PHQ-9 Billing: Patient declined-do not bill Source: Developed by Drs. Srinivasan Valdez, Whit Vogt, Travon Gunn and colleagues, with an educational tahira from [employer]. Thrive Questionnaire Date Thrive assessed: 04/24/23 MAICOL-7 AMB Questionnaire MAICOL-7 Date MAICOL - 7 assessed: 08/01/23 Source: Developed by Drs. Srinivasan Valdez, Whit Vogt, Travon Gunn and colleagues, with an educational tahira from [employer]. MAICOL-7 Assessment Billing MAICOL-7 Assessment Tool: pt declined-do not bill Review of Systems Const Reports as per HPI Physical exam (Primary Care) Vital Signs: Last Vital Signs Pulse 97 08/01/23 14:51 BP 132/84 08/01/23 14:51 Pulse Ox 98 08/01/23 14:51 Oxygen Delivery Method Room Air 08/01/23 14:51 BMI result Body Mass Index 50.0 Tobacco/Smoking Status: Tobacco use Status Tobacco use date assessed 08/01/23 08/01/23 14:56 Patient Tobacco Use Status Former Tobacco user 08/01/23 14:56 Tobacco use type Cigarette 08/01/23 14:56 e-Cigarette/Vaping Use Never Used 08/01/23 14:56 Thrive Assessment: Date of Thrive Assessment Date Thrive assessed 04/24/23 08/01/23 14:56 Const General: cooperative Nutritional Appearance: obese morbidly obese Orientation/consciousness: patient oriented x3 Resp Effort & Inspection: normal respiratory effort Auscultation: clear to auscultation bilaterally Cardio Rate: regular rate Rhythm: regular rhythm Heart sounds: S1 normal heart sound present and S2 normal heart sound present Neuro General: patient oriented x3 Psych Appearance: grossly normal Mental Status: mental status grossly normal Speech and movement: Normal speech and movement present Attitude: cooperative Thought process: Normal thought process present Thought content: Normal thought content present Insight: Good insight present (Psych) Judgement: Good judgement present (Psych) Assessment and Plan Assessment & Plan (1) Depression: Code(s): F32.9 - Major depressive disorder, single episode, unspecified Qualifiers: Depression Type: unspecified Qualified Code(s): F32.9 - Major depressive disorder, single episode, unspecified (2) Anxiety: Code(s): F41.9 - Anxiety disorder, unspecified (3) Insomnia: Code(s): G47.00 - Insomnia, unspecified Plan: start trazodone. Plan The patient agreed to the use of a medical lead for this encounter. Scribed for JAYNA Madden by Francisca Costa medical lead, on 08/01/2023 at 15:10 EST. Orders: Referrals Cologuard Test Z12.11 - Encounter for screening for malignant neoplasm of colon, Z12.12 - Encounter for screening for malignant neoplasm of rectum Medications: New trazodone 100 mg PO BEDTIME PRN 30 tabs 0RF sleep Coding Level of Care Code Est Pt Level 3 (38817) Diagnoses Depression, unspecified depression type F32.9 Depression Type: unspecified Anxiety F41.9 Insomnia G47.00
[2023-08-01 14:51] VITALS: BP 132/84; PULSE 97; O2SAT 98; BMI 50.0
== END 2023-08-01 16:28 | disposition home or self-care (01) ==
PROVIDERS: PCP Nurse Practitioner Family; Visit Provider Nurse Practitioner Family
DX: F32.9 Major depressive disorder, single episode, unspecified (principal); F41.9 Anxiety disorder, unspecified; G47.00 Insomnia, unspecified
CPT/HCPCS: 99213

== ENCOUNTER 2023-08-05 08:01 | Outpatient (AMB) | payer MEDICARE, SELFPAY ==
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
[2023-08-05 08:06] VITALS: BP 132/82; PULSE 74; O2SAT 98
== END 2023-08-05 13:23 | disposition home or self-care (01) ==
LOC: HO.HMGC 08:01
PROVIDERS: PCP Nurse Practitioner Family; Visit Provider Nurse Practitioner Family
DX: F41.9 Anxiety disorder, unspecified (principal); F32.9 Major depressive disorder, single episode, unspecified; G47.00 Insomnia, unspecified
CPT/HCPCS: 99213

== ENCOUNTER 2023-10-01 14:10 | Outpatient (AMB) | payer MEDICARE, SELFPAY ==
--- NOTE | 2023-10-01 14:11 | A.OFFVIS_ITS ---
Vital Signs 3 10/01/23 14:21 Height 6 ft 1 in Weight 385 lb 12.943 oz BMI 50.9 BP 147/83 H Blood Pressure Location Rt brachial Position Sitting Pulse 68 Intake Visit Reasons: + Cologuard Intake Note: Chucho presents to in office visit today for positive cologuard. CC: Patient states that he sometimes has bouts of diarrhea depending on what he eats. Denies other GI symptoms or concerns. Director Business Required: No Accompanied by: Self / Same As Patient Allergies codeine [CODEINE] Allergy (Severe, Verified 10/01/23 14:25) ANAPHYLAXIS, hives HPI HPI + Cologuard: Details: Assessment & Plan (1) Pre-op examination: Code(s): Z01.818 - Encounter for other preprocedural examination Plan: This will be his second colonoscopy. HIs first was in [address] Rahman and was negative. He has been having diarrhea recently, every morning. 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 He will try to see if fat intake correlates to the diarrhea. No upper GI problems. There are no prior problems with anesthesia or sedation. He has asthma and has had a cough and a pain in the right chest recently, he has NUBIA, no known cardiac problems. No ID problems. There is no known FHX of crc or polyps. (2) Morbid obesity: Code(s): E66.01 - Morbid (severe) obesity due to excess calories (3) Memory deficit: Code(s): R41.3 - Other amnesia (4) Obstructive sleep apnea on CPAP: Code(s): G47.33 - Obstructive sleep apnea (adult) (pediatric); Z99.89 - Dependence on other enabling machines and devices (5) Cough: Code(s): R05.9 - Cough, unspecified Orders: Orders Colonoscopy - GI Use Only 01/24/23 Z01.818 - Encounter for other preprocedural examination XR chest 2V 01/24/23 R05.9 - Cough, unspecified Medications: New peg 3350-electrolytes 236-22.74-6.74 -5.86 gram (Golytely) until fecal effluent is clear; do not exceed a total volume of 2,000 mL 240 mL PO Q10M 4,000 mL 0RF 1 day Z12.11 - Encounter for screening for malignant neoplasm of colon X-ray of the chest NOT OBTAINED Colonoscopy Biopsy CORRESPONDENCE On 07/09/23 @ 11:25 Angella Junior Wrote To Cheli Hayden spoke with pt he had a family emergency an had to cxl his colon and will cb when he is ready to r/s. On 07/05/23 @ 12:40 Cheli Hayden Wrote To Cheli Hayden Spoke to patient, reports he forgot about the colonoscopy on Sunday 07/09. Will have no problem with getting transportation. He has prep- peg. Diet and prep reviewed. He has good understanding and no questions. Cheli Hayden completed item. TODAY'S VISIT This patient has been lost to follow-up since 01/2023, He has since had a + Cologuard He will need his labs refreshed. He is agreeable to this This will be his second colonoscopy. His first was in [address] Rahman and was negative. He has occasional diarrhea that has improved since I last saw him, no upper GI problems. There are no prior problems with anesthesia or sedation. He has asthma and NUBIA and he denies cardiac problems. He is morbidly obese with a BMI of 50. No ID problems. There is no known FHX of crc or polyps. Dooknob of edema of LE's and some reddening of left LE and he needs rx for more compression stockings. A note was sent to his primary care provider about this situation. [facility] Medical History (Reviewed 10/01/23 @ 14:26 by Vincent Pearce [facility]) Screening for colon cancer Medicare annual wellness visit, subsequent COVID-19 vaccine series completed Agoraphobia Anxiety Impaired fasting glucose GERD (gastroesophageal reflux disease) Depression TIA (transient ischemic attack) Sleep apnea Memory deficit Morbid obesity Toenail fungus Rash Hypertension, essential Gait difficulty Surgical History H/O colonoscopy Hx of arthroscopic knee surgery Hx of appendectomy Hx of cholecystectomy History of esophagogastroduodenoscopy (EGD) Family History Sister Dementia Other Substance use disorder Social History Housing: House Are you a primary clinical care coordinator to a significant other at home: No Do you presently have visiting nurse or other home services: No Alcohol intake: never Patient Tobacco Use Status: Former Tobacco user Quit Date: age 40 Tobacco use type: Cigarette e-Cigarette/Vaping Use: Never Used Second Hand Smoke Exposure: No Substance Use Type: Marijuana service: No Current occupational status: other Cognitive needs: No Hearing needs: No Vision needs: Yes Review of Systems Const Denies fatigue, Denies fever(s), Denies night sweats, Denies poor appetite and Denies weight loss ENT Reports Normal hearing present, Denies dental pain, Denies dysphagia, Denies hearing loss, Denies mouth pain, Denies odynophagia, Denies throat swelling, Denies tongue swelling and Reports other (Dentition adequate) Card Reports no additional complaints Resp Reports no additional complaints GI Details: Denies abdominal pain, Denies melena, Denies bloating, Denies hematochezia, Denies constipation, Denies GI cramping, Denies dysphagia, Denies excessive flatus, Denies early satiety, Reports heartburn, Denies diarrhea, Denies nausea, Denies odynophagia, Denies vomiting and Denies hematemesis Skin/Breast Denies pruritus, Denies lesions, Reports rash (Minor venous stasis changes of left lower extremity), Reports skin swelling (1+ pitting edema of the bilateral legs) and Denies jaundice Neuro Reports Normal hearing present, Denies Abnormal speech present and Reports memory loss Psych Reports memory loss Endo Denies fatigue Aller/Immun Denies throat swelling and Denies tongue swelling Physical Exam Vital Signs: Last Vital Signs Pulse 68 10/01/23 14:21 BP 147/83 H 10/01/23 14:21 BMI result Body Mass Index 50.9 Const General: cooperative, no acute distress, well developed and well groomed Nutritional Appearance: well nourished and obese morbidly obese Orientation/consciousness: oriented to person, oriented to place and oriented to time Limitations: No language barrier and other limitations (Memory) HEENT Head: Yes normocephalic and Yes atraumatic Eyes General: appearance normal, both eyes and all related structures Pupils: Equal, round and reactive pupils present Neck Neck: Yes normal visual inspection and Yes no lymphadenopathy Thyroid: Thyroid normal Resp Effort & Inspection: normal respiratory effort and able to speak in complete sentences Auscultation: clear to auscultation bilaterally Cardio Rate: regular rate Rhythm: regular rhythm Heart sounds: Normal, physiologic split S2 sound present Peripheral pulses: radial pulses present and posterior tibial pulses present GI Inspection: No distended, Yes Abdominal panniculus present and Yes obesity Palpation (GI): Soft to palpation, nontender, no guarding, not rigid and No hepatosplenomegaly present Percussion: Yes normal to percussion Auscultation: normal bowel sounds Rectal Exam - Male: Yes deferred Abdomen image: 2 1. Surgical scars Skin General skin exam: no rashes or lesions noted, turgor normal, skin not dry, no jaundice, No spider nevi and no striae Rashes: no rashes Nails: normal Neuro General: oriented to person, oriented to place and oriented to time Cranial nerves: Yes Equal, round and reactive pupils present and Yes Normal hearing present Speech: No Abnormal speech present Extrem General: No clubbing, No cyanosis, Yes edema and Yes venous stasis dermatitis Psych Appearance: grossly normal and well kempt Mental Status: mental status grossly normal Speech and movement: Normal speech and movement present Affect: normal affect Attitude: cooperative Thought process: Normal thought process present and not confabulating Thought content: Normal thought content present Insight: Fair insight present (Psych) Judgement: Fair judgement present (Psych) Assessment & Plan Assessment & Plan (1) Positive colorectal cancer screening using Cologuard test: Code(s): R19.5 - Other fecal abnormalities Category: Medical (2) Pre-op examination: Code(s): Z01.818 - Encounter for other preprocedural examination Category: Medical (3) Marijuana use, continuous: Code(s): F12.90 - Cannabis use, unspecified, uncomplicated Category: Medical (4) Obstructive sleep apnea on CPAP: Code(s): G47.33 - Obstructive sleep apnea (adult) (pediatric); Z99.89 - Dependence on other enabling machines and devices Category: Medical (5) Morbid obesity: Code(s): E66.01 - Morbid (severe) obesity due to excess calories Category: Medical (6) Memory deficit: Code(s): R41.3 - Other amnesia Category: Medical Plan This patient has been lost to follow-up since 01/2023, He has since had a + Cologuard He will need his labs refreshed. He is agreeable to this This will be his second colonoscopy. His first was in [address] Rahman and was negative. He has occasional diarrhea that has improved since I last saw him, no upper GI problems. There are no prior problems with anesthesia or sedation. He has asthma and NUBIA and he denies cardiac problems. He is morbidly obese with a BMI of 50. No ID problems. There is no known FHX of crc or polyps. Dooknob of edema of LE's and some reddening of left LE and he needs rx for more compression stockings. A note was sent to his primary care provider about this situation. Orders: Orders 2 Comprehensive Met. Panel Today R19.5 - Other fecal abnormalities, Z01.818 - Encounter for other preprocedural examination Complete Blood Count Auto Diff Today R19.5 - Other fecal abnormalities, Z01.818 - Encounter for other preprocedural examination Medications: Discontinued 2 eszopiclone (Lunesta) Discontinued Reason: Doctor's Order 1 mg PO BEDTIME 30 days 30 tabs 0RF Coding Level of Care Code Est Pt Level 4 (42976) Diagnoses Positive colorectal cancer screening using Cologuard test R19.5 Pre-op examination Z01.818 Marijuana use, continuous F12.90 Obstructive sleep apnea on CPAP G47.33; Z99.89 Morbid obesity E66.01 Memory deficit R41.3
[2023-10-01 14:21] VITALS: BP 147/83; PULSE 68; BMI 50.9
== END 2023-10-01 14:58 | disposition home or self-care (01) ==
PROVIDERS: PCP Nurse Practitioner Family; Visit Provider Nurse Practitioner
DX: R19.5 Other fecal abnormalities (principal); Z01.818 Encounter for other preprocedural examination; F12.90 Cannabis use, unspecified, uncomplicated; G47.33 Obstructive sleep apnea (adult) (pediatric); Z99.89 Dependence on other enabling machines and devices; E66.01 Morbid (severe) obesity due to excess calories; R41.3 Other amnesia
CPT/HCPCS: 99214

== ENCOUNTER 2023-10-01 14:10 | Outpatient (REF) | payer MEDICARE, SELFPAY ==
[2023-10-01 15:33] LABS: MANUAL DIFF FLAG NO
[2023-10-01 16:21] LABS: Basophils Absolute Auto 0.1 X10*3/uL (0.0-0.2); Basophils Percent Auto 0.6 % (0-2); Eosinophils Absolute Auto 0.4 X10*3/uL (0.0-0.4); Eosinophils Percent Auto 3.1 % (0-4); Hematocrit 39.6 % (42.0-52.0); Hemoglobin 13.3 g/dl (14.0-18.0); Imm Gran Abs Auto 0.05 X10*3/uL (0.00-0.03); Imm Gran Pct Auto 0.4 % (0.0-0.4); Lymphocytes Absolute Auto 2.2 X10*3/uL (1.2-4.9); Mean Corpuscular HGB Conc 33.6 g/dl (31.0-36.0); Mean Corpuscular Hemoglobin 28.8 pg (27.0-33.0); Mean Corpuscular Volume 85.7 fL (80.0-98.0); Mean Platelet Volume 10.3 fL (9.4-12.4); Monocytes Absolute Auto 0.8 X10*3/uL (0.1-1.2); Monocytes Percent Auto 6.9 % (2-11); Neutrophils Absolute Auto 8.1 x10*3/uL (2.0-8.3); Platelet Count 269 X10*3/uL (160-400); Red Blood Count 4.62 X10*6/uL (4.60-5.80); Red Cell Distribution Width 15.2 % (11.0-16.0); White Blood Count 11.6 X10*3/uL (4.8-10.8)
[2023-10-01 16:45] LABS: Alanine Aminotransferase 18 U/L (0-40); Albumin Level 3.8 g/dL (3.5-5.0); Alkaline Phosphatase 73 U/L (39-117); Anion Gap 12 (12-20); Aspartate Amino Transferase 15 U/L (5-37); Bilirubin Total 0.3 mg/dL (0.0-1.0); Blood Urea Nitrogen 18 mg/dL (9-16); Carbon Dioxide 25 mmol/L (22-29); Chloride 105 mmol/L (96-108); Estimated Glomerular Filt Rate > 60; Glucose Random 100 mg/dL (60-115); Potassium 4.5 mmol/L (3.3-5.1); Sodium 137 mmol/L (135-145); Total Protein 7.4 g/dL (6.5-8.0)
== END 2023-10-01 14:11 | disposition home or self-care (01) ==
LOC: HO.LAB 14:10
PROVIDERS: PCP Nurse Practitioner Family; Visit Provider Nurse Practitioner
DX: Z01.818 Encounter for other preprocedural examination (principal); R19.5 Other fecal abnormalities; R19.7 Diarrhea, unspecified; E66.01 Morbid (severe) obesity due to excess calories
CPT/HCPCS: 36415; 80053; 85025; 99212

== ENCOUNTER 2023-10-30 09:59 | Day surgery (SDC) | payer MEDICARE, SELFPAY ==
[2023-10-28 16:15] VITALS: BMI 50.9
--- NOTE | 2023-10-29 08:37 | HO.ANESPROP2 ---
Documented by User: Evette Perales NP 10/29/23 08:38 HPI - Anesthesia Eval Consult details Narrative: 63yo M for Colonoscopy PMFSH Active Problems Active Problems: All Active Problems Positive colorectal cancer screening using Cologuard test (Acute) Cough (Acute) Pre-op examination (Acute) Upset stomach (Acute) Screening PSA (prostate specific antigen) (Acute) Physical exam (Acute) Marijuana use, continuous (Acute) Right upper quadrant pain (Acute) Skin infection, bacterial (Acute) Anxiety (Acute) Depression (Acute) Knee pain (Acute) Difficulty sleeping (Acute) Obstructive sleep apnea on CPAP (Acute) Insomnia (Acute) Impaired fasting blood sugar (Acute) Memory deficit (Acute) Blurring of vision (Acute) Morbid obesity (Acute) Toenail fungus (Acute) Rash (Acute) Hypertension, essential (Acute) Gait difficulty (Acute) Past Medical History Medical History Screening for colon cancer Medicare annual wellness visit, subsequent COVID-19 vaccine series completed Agoraphobia Anxiety Impaired fasting glucose GERD (gastroesophageal reflux disease) Depression TIA (transient ischemic attack) Sleep apnea Memory deficit Morbid obesity Toenail fungus Rash Hypertension, essential Gait difficulty Family History Family History Sister Dementia Other Substance use disorder Surgical History Surgical History H/O colonoscopy Hx of arthroscopic knee surgery Hx of appendectomy Hx of cholecystectomy History of esophagogastroduodenoscopy (EGD) Social History Social History Housing: House Are you a primary managed care provider to a significant other at home: No Do you presently have visiting nurse or other home services: No Alcohol intake: never Patient Tobacco Use Status: Former Tobacco user Tobacco use type: Cigarette e-Cigarette/Vaping Use: Never Used Second Hand Smoke Exposure: No Substance Use Type: Marijuana Are you DNR?: No Advance Directives: No Advance Directives Information Provided: Yes Nutrition Risks: No Nutritional Risk service: No Current occupational status: other Cognitive needs: No Hearing needs: No Vision needs: Yes Meds Allergies Allergy/AdvReac Type Severity Reaction Status Date / Time codeine [CODEINE] Allergy Severe ANAPHYLAXIS, Verified 10/01/23 14:25 hives Exam Height,Weight and Vital Signs: Height 6 ft 1 in Weight 174.999 kg Pertinent Lab Results Pertinent Lab Results: Laboratory Tests 10/01/23 15:31 WBC 11.6 H Hgb 13.3 L Hct 39.6 L Plt Count 269 Sodium 137 Potassium 4.5 Chloride 105 Carbon Dioxide 25 BUN 18 H Creatinine 0.81 Narrative Narrative: EKG 04/2023 SR with freq PVC LAD LVH ? Septal infarct Assessment and Plan Assessment Anesthesia Assessment: Chart Reviewed Documented by User: Bhavana Leonardo MD 10/30/23 11:21 PMFSH Past Medical History Medical History Screening for colon cancer Medicare annual wellness visit, subsequent COVID-19 vaccine series completed Agoraphobia Anxiety Impaired fasting glucose GERD (gastroesophageal reflux disease) Depression TIA (transient ischemic attack) Sleep apnea Memory deficit Morbid obesity Toenail fungus Rash Hypertension, essential Gait difficulty Family History Family History Sister Dementia Other Substance use disorder Family history of problems with anesthesia: No Surgical History Surgical History H/O colonoscopy Hx of arthroscopic knee surgery Hx of appendectomy Hx of cholecystectomy History of esophagogastroduodenoscopy (EGD) History of Problems with Anesthesia: No Social History Social History Housing: House Are you a primary managed care provider to a significant other at home: No Do you presently have visiting nurse or other home services: No Alcohol intake: never Patient Tobacco Use Status: Former Tobacco user Tobacco use type: Cigarette e-Cigarette/Vaping Use: Never Used Second Hand Smoke Exposure: No Substance Use Type: Marijuana Are you DNR?: No Advance Directives: No Advance Directives Information Provided: Yes Nutrition Risks: No Nutritional Risk service: No Current occupational status: other Cognitive needs: No Hearing needs: No Vision needs: Yes Meds Allergies Allergy/AdvReac Type Severity Reaction Status Date / Time codeine [CODEINE] Allergy Severe ANAPHYLAXIS, Verified 10/01/23 14:25 hives Exam Airway Mallampati Class: II TM Dist: >3cm Neck ROM: Full Heart: rrr Lungs: cta Assessment and Plan Assessment Anesthesia Assessment: Anesthesia Plan Discussed Final Anesthetic Review Family History of Problems with Anesthesia: No History of Problems with Anesthesia: No NPO: Yes ASA Class: III Final Preanesthetic Review: No Changes in Pt Med Stat, Meds/Allgs Chart Reviewed and Consent Obtained/Reviewed Patient Risk: Intermediate Procedure Risk: Low Anesthetic Plan Anesthetic Plan: MAC: Disposition: Standard PACU
[2023-10-30 10:45] VITALS: BP 135/89; PULSE 69; RESP 18; TEMP 36.1; O2SAT 95; BMI 51.5
--- NOTE | 2023-10-30 11:16 | MHC.SHP ---
Pre-Procedural Eval Section A - 24 Hr Update-Section A only Date of Service: 10/30/23 Section B - Complete if H&P > 30 days Chief Complaint: Other fecal abnormalities Relevant Family History (Specify if Yes): No Relevant Social History: Other (specify) (occ THC) Present Medications: see Short Stay Collaborative assessment Medical History: Significant History (Screening for colon cancer Medicare annual wellness visit, subsequent COVID-19 vaccine series completed Agoraphobia Anxiety Impaired fasting glucose GERD (gastroesophageal reflux disease) Depression TIA (transient ischemic attack) Sleep apnea Memory deficit Morbid obesity Toenail fungus Rash Hyperte) History of Previous Operations: Relevant previous surgery/procedure and date(s) (H/O colonoscopy Hx of arthroscopic knee surgery Hx of appendectomy Hx of cholecystectomy History of esophagogastroduodenoscopy (EGD)) Allergies: Allergies Allergy/AdvReac Type Severity Reaction Status Date / Time codeine [CODEINE] Allergy Severe ANAPHYLAXIS, Verified 10/01/23 14:25 hives Review of Systems Sugical H&P ROS: Negative: Constitution, Cardiovascular, Respiratory, Neurological, Psychiatric, Hem-Onc, Allergic/Immunologic, Gastrointestinal, Genitourinary, Musculoskeletal, Integumentary, Endocrine and Eyes/Ears/Nose/Throat Exam Surgical H&P Exam: Normal: HEENT, Normal: Heart, Normal: Lungs, Normal: Extremities, Normal: Abdomen, Normal: Skin and Normal: Neurological Exam Comment: high bmi Plan Diagnosis/Plan: Unchanged I have reviewed the history and physical and performed a pertinent physical examination on my patient. No changes have occurred unless specified. Time Spent With Patient Time: Total time managing care of this patient today ____ minutes.
[2023-10-30] MEDS: Lactated Ringers 1,000 ML 100 ML IVCONT (11:41)
--- NOTE | 2023-10-30 12:22 | HO.OPN-COLON ---
Colonoscopy Operative Note Operative Note Date of Service: 10/30/23 Narrative: Operative Information Procedure Description: Colonoscopy Indication: pos cologuard Anesthesia: MAC COLONOSCOPY Instrument: Olympus variable stiffness ADULT scope 190L Colonoscopy Monitoring: Vital signs and clinical assessment, continuous EKG monitoring, Pulse oximetry, Carbon Dioxide monitoring and blood pressure monitoring were done throughout the procedure. Colon withdrawal time was 22 minutes. Procedure: The patient was placed in the left lateral decubitis position and pre-procedure medications were administered. After a digital rectal examination of the ano-rectum, the video colonoscope was inserted into the rectum and advanced through the colon to the cecum/TI. The colonoscope was slowly withdrawn in a retrograde panoramic fashion and the colon mucosa was carefully examined including a retroflexed view of the rectum. Findings and interventions are described below. Procedure Difficulty: easy Findings: Terminal Ileum-normal Cecum:normal Ascending Colon: normal Transverse Colon -normal Descending Colon: 10 mm sessile polyp removed wit cold snare and x 1 clip applied Sigmoid Colon: 6-8 mm sessile polyp removed with cold forceps, x3 semi pedunculated polyps 10-12 mm removed with cold snare, with x 3 clips applied for hemostasis --moderate diverticulosis Rectum: Retroflexion with small to medium sized internal hemorrhoids seen, grade I Anorectum - normal Intervention: cold snare, and cold forceps Colon preparation: [place] Bowel Preparation Scale Right colon; 1-2 Transverse colon: 1-2 Left colon; 1-2 (0 = Unprepared colon segment with mucosa not seen due to solid stool that cannot be cleared. 1 = Portion of mucosa of the colon segment seen, but other areas of the colon segment not well seen due to staining, residual stool and/or opaque liquid. 2 = Minor amount of residual staining, small fragments of stool and/or opaque liquid, but mucosa of colon segment seen well. 3 = Entire mucosa of colon segment seen well with no residual staining, small fragments of stool or opaque liquid) Impression and Post Procedure Diagnosis: diverticulosis colon polyps internal hemorrhoids Plan: High fiber diet leaflet Avoid straining at stool, epsom salts and sitz bath, anusol supps or cream Repeat Colonoscopy in 1 year or earlier if clinically indicated Above findings were reviewed with the patient and relevant handouts were provided if indicated.
[2023-10-30 13:03] VITALS: BP 118/55; PULSE 68; RESP 16; TEMP 36.1; O2SAT 98
[2023-10-30 13:18] VITALS: BP 135/74; PULSE 68; RESP 17; TEMP 36.4; O2SAT 99
== END 2023-10-30 14:09 | disposition home or self-care (01) ==
PROVIDERS: PCP Nurse Practitioner Family; Visit Provider Internal Medicine Gastroenterology
PROC: 0DJD8ZZ Inspection of Lower Intestinal Tract, Via Natural or Artificial Opening Endoscopic (ICD-10-PCS; CPT 45378; principal; 2023-10-30 11:50)
DX: R19.5 Other fecal abnormalities (principal); D12.4 Benign neoplasm of descending colon; D12.5 Benign neoplasm of sigmoid colon; K57.30 Diverticulosis of large intestine without perforation or abscess without bleeding; K64.0 First degree hemorrhoids; G47.33 Obstructive sleep apnea (adult) (pediatric); J45.909 Unspecified asthma, uncomplicated; R41.3 Other amnesia; I10 Essential (primary) hypertension; R73.01 Impaired fasting glucose; E66.01 Morbid (severe) obesity due to excess calories; Z68.43 Body mass index [BMI] 50.0-59.9, adult; Z99.89 Dependence on other enabling machines and devices; Z79.899 Other long term (current) drug therapy; Z88.5 Allergy status to narcotic agent; F12.90 Cannabis use, unspecified, uncomplicated; Z90.49 Acquired absence of other specified parts of digestive tract; Z87.891 Personal history of nicotine dependence
CPT/HCPCS: 45385; 45380; 88305; J2704

== ENCOUNTER → 2023-10-30 09:59 | Outpatient (BNV) | payer MEDICARE, SELFPAY | PROVIDERS: PCP Nurse Practitioner Family; Visit Provider Internal Medicine Gastroenterology | DX: Z12.11 Encounter for screening for malignant neoplasm of colon (principal); R19.5 Other fecal abnormalities; D12.4 Benign neoplasm of descending colon; D12.5 Benign neoplasm of sigmoid colon | CPT/HCPCS: 45385 ==

== ENCOUNTER 2023-11-18 08:48 | Outpatient (AMB) | payer MEDICARE, SELFPAY ==
--- NOTE | 2023-11-18 08:50 | MHC.PC.OV ---
Vital Signs 11/18/23 08:54 11/18/23 09:42 Height 6 ft 1 in Weight 386 lb BMI 50.9 BP 130/90 H 130/88 Blood Pressure Location Rt brachial Rt brachial Position Sitting Sitting Pulse 68 Pulse Source Pulse Oximeter Pulse Oximetry (%) 97 Oxygen Delivery Method Room Air Intake Visit Reasons: PE - see comments Intake Note: Patient here for physical exam. Colon: 2023 due in 2024 Allergies codeine [CODEINE] Allergy (Severe, Verified 11/18/23 09:15) ANAPHYLAXIS, hives adhesive tape Adverse Reaction (Mild, Verified 11/18/23 09:15) Irritable Medication List - Last Reconciled 11/18/23 by JAYNA Fontanez amlodipine 10 mg PO DAILY 90 days lisinopril 10 mg PO DAILY zolpidem 5 mg PO BEDTIME PRN Tobacco use date assessed: 08/01/23 Fall risk assessment: No Falls in past year Last assessed Fall Risk: 11/18/23 Dental Screening Dental Screen Date: 08/01/23 HPI PE - see comments HPI Details Here for a PE. Colon screen is up to date. PSA being ordered. Pt is obese, discussed importance of diet. Depression: good days and bad days, denies any SI or HI, does not want a therapist currently or meds [facility] Medical History Screening for colon cancer Medicare annual wellness visit, subsequent COVID-19 vaccine series completed Agoraphobia Anxiety Impaired fasting glucose GERD (gastroesophageal reflux disease) Depression TIA (transient ischemic attack) Sleep apnea Memory deficit Morbid obesity Toenail fungus Rash Hypertension, essential Gait difficulty Surgical History H/O colonoscopy Hx of arthroscopic knee surgery Hx of appendectomy Hx of cholecystectomy History of esophagogastroduodenoscopy (EGD) Family History Sister Dementia Other Substance use disorder Social History Housing: House Are you a primary director of primary care to a significant other at home: No Do you presently have visiting nurse or other home services: No Alcohol intake: never Patient Tobacco Use Status: Former Tobacco user Tobacco use type: Cigarette e-Cigarette/Vaping Use: Never Used Second Hand Smoke Exposure: No Substance Use Type: Marijuana service: No Current occupational status: other Cognitive needs: No Hearing needs: No Vision needs: Yes Questionnaire PHQ-9 Over the last 2 weeks, how often have you been bothered by any of the following problems? 1. Little interest or pleasure in doing things: more than half the days 2. Feeling down, depressed, or hopeless: more than half the days 3. Trouble falling or staying asleep, or sleeping too much: more than half the days 4. Feeling tired or having little energy: more than half the days 5. Poor appetite or overeating: more than half the days 6. Feeling bad about yourself - or that you are a failure or have let yourself or your family down: more than half the days 7. Trouble concentrating on things, such as reading the newspaper or watching television: nearly every day 8. Moving or speaking so slowly that other people could have noticed. Or the opposite - being so fidgety or restless that you have been moving around a lot more than usual: not at all 9. Thoughts that you would be better off or of hurting yourself in some way: not at all Total score: 15 Depression Screening Interpretation: Positive (denies any SI or HI) Depression Screening Follow-up: Existing condition and Declines treatment Depression Screening Done: Yes 41743 - PHQ-9 Billing: Yes Source: Developed by Drs. Srinivasan Valdez, Whit Vogt, Travon Gunn and colleagues, with an educational tahira from [employer]. Thrive Questionnaire Date Thrive assessed: 11/18/23 I am a: Patient What is your living situation today?: I have a steady place to live Within the past 12 months, did the food you bought not last and you didn't have the money to get more?: Never true Within the past 12 months, did you worry whether your food would run out before you got money to buy more?: Never true Do you have trouble paying for medicines?: No Do you have trouble getting transportation to medical appointments?: No Do you have trouble paying your heating and electricity bill?: No Do you have trouble taking care of your child, family member or friend?: No Do you have trouble with day-to-day activities such as bathing, preparing meals, shopping, managing finances, etc.?: Yes Are you currently unemployed and looking for a job?: No Are you interested in more education?: No Please select the resources that you would like help with: Housing/[facility] Currently or been in a relationship where the following occur: No concerns reported THRIVE Score: 0 AUDIT C Alcohol Use Questionnaire (AUDIT-C) 1. How often do you have a drink containing alcohol?: Never 3. How often do you have six or more drinks on one occasion?: Never Total Score: 0 Score Reviewed/Action Taken: No MAICOL-7 AMB Questionnaire MAICOL-7 Date MAICOL - 7 assessed: 08/01/23 Feeling nervous, anxious, or on edge: 3 = Nearly every day Not being able to stop or control worryin = More than half the days Worrying too much about different things: 2 = More than half the days Trouble relaxin = Several days Being so restless that it is hard to sit still: 1 = Several days Becoming easily annoyed or irritable: 2 = More than half the days Feeling afraid as if something awful might happen: 1 = Several days Total MAICOL-7 score (0-4 normal; 5-9 mild; 10-14 moderate; 15-21 severe): 12 Source: Developed by Drs. Srinivasan Valdez, Whit Vogt, Travon Gunn and colleagues, with an educational tahira from [employer]. MAICOL-7 Assessment Billing MAICOL-7 Assessment Tool: MAICOL-7 Assessment 07947 Review of Systems Const Denies chills and Denies fever(s) Eyes Denies blurry vision ENT Denies vertigo, Denies dizziness and Denies sore throat Card Denies chest pain at rest, Denies chest pain with activity, Denies diaphoresis, Denies dyspnea and Denies dyspnea on exertion Resp Denies cough, Denies dyspnea, Denies dyspnea on exertion and Denies wheezing GI Denies abdominal pain, Denies melena, Denies hematochezia, Denies constipation, Denies diarrhea and Reports loose stools (most of the time) Denies hematuria Musc Denies numbness and Denies tingling Skin/Breast Denies lesions Neuro Denies vertigo, Denies dizziness, Denies numbness and Denies tingling Psych Reports anxiety, Reports depression, Denies homicidal ideation, Denies suicidal ideation and Denies other (substance abuse) Aller/Immun Denies wheezing Physical exam (Primary Care) Vital Signs: Last Vital Signs Pulse 68 11/18/23 08:54 BP 130/88 11/18/23 09:42 Pulse Ox 97 11/18/23 08:54 Oxygen Delivery Method Room Air 11/18/23 08:54 BMI result Body Mass Index 50.9 Tobacco/Smoking Status: Tobacco use Status Tobacco use date assessed 08/01/23 11/18/23 08:52 Patient Tobacco Use Status Former Tobacco user 11/18/23 08:52 Tobacco use type Cigarette 11/18/23 08:52 e-Cigarette/Vaping Use Never Used 11/18/23 08:52 PHQ-9: PHQ-9 Score PHQ-9: Total score 11/18/23 09:42 Depression Screening Interpretation: Positive (denies any SI or HI) Depression Screening Follow-up: Existing condition and Declines treatment Thrive Assessment: Date of Thrive Assessment Date Thrive assessed 11/18/23 11/18/23 08:52 Currently or been in a relationship where the following occur: No concerns reported Const General: cooperative Nutritional Appearance: well nourished Orientation/consciousness: patient oriented x3 HENMT Head: Yes normal to inspection, Yes normocephalic and Yes atraumatic Ears: TM normal on the right and TM normal on the left Eyes General: appearance normal, both eyes and all related structures Alignment and Position: alignment normal and position normal Neck Neck: Yes normal visual inspection and Yes no lymphadenopathy Resp Effort & Inspection: normal respiratory effort Auscultation: clear to auscultation bilaterally Cardio Rate: regular rate Rhythm: regular rhythm Heart sounds: S1 normal heart sound present, S2 normal heart sound present and no murmurs GI Palpation (GI): Soft to palpation and nontender Auscultation: normal bowel sounds Male General Exam: Yes normal external exam Penis: normal penis Scrotum: scrotum normal, testes descended bilaterally and no inguinal hernias Testes: no testicular mass Skin Rashes: no rashes Neuro General: patient oriented x3, moves all extremities, no focal motor deficits and deep tendon reflexes 2+ bilaterally Romberg Test: Negative Extrem Other: trace edema to BLE Right lower extremity: no edema Left lower extremity: no edema Psych Affect: normal affect Attitude: cooperative Thought process: Normal thought process present Assessment and Plan Assessment & Plan (1) Encounter for routine adult physical exam with abnormal findings: Code(s): Z00.01 - Encounter for general adult medical examination with abnormal findings (2) Screening PSA (prostate specific antigen): Code(s): Z12.5 - Encounter for screening for malignant neoplasm of prostate (3) Morbid obesity: Code(s): E66.01 - Morbid (severe) obesity due to excess calories Plan: work on diet and exercise (4) Depression: Code(s): F32.9 - Major depressive disorder, single episode, unspecified Qualifiers: Depression Type: unspecified Qualified Code(s): F32.9 - Major depressive disorder, single episode, unspecified Plan: good days and bad days. Denies any si or HI, does not want a therapist currently, does have a new girlfriend. Orders: Orders Complete Blood Count Auto Diff Today Z00.01 - Encounter for general adult medical examination with abnormal findings Comprehensive [place]. Panel Fast Today Z00.01 - Encounter for general adult medical examination with abnormal findings UA CC w/rflx Micro + Cult Today Z00.01 - Encounter for general adult medical examination with abnormal findings Lipid Panel Today Z00.01 - Encounter for general adult medical examination with abnormal findings Prostate Specific Antigen Scr Today Z12.5 - Encounter for screening for malignant neoplasm of prostate TSH reflex Free T4 Today Z00.01 - Encounter for general adult medical examination with abnormal findings Coding Level of Care Code Est Pt Prev Care >65y(11748) Diagnoses Encounter for routine adult physical exam with abnormal findings Z00.01 Screening PSA (prostate specific antigen) Z12.5 Morbid obesity E66.01 Depression, unspecified depression type F32.9 Depression Type: unspecified Additional Codes MAICOL-7 Assessment Billing - MAICOL-7 Assessment Tool: MAICOL-7 Assessment [id number] ([id number])
[2023-11-18 08:54] VITALS: BP 130/90; PULSE 68; O2SAT 97; BMI 50.9
[2023-11-18 09:42] VITALS: BP 130/88
== END 2023-11-18 09:46 | disposition home or self-care (01) ==
PROVIDERS: PCP Nurse Practitioner Family; Visit Provider Nurse Practitioner Family
DX: Z00.00 Encounter for general adult medical examination without abnormal findings (principal); E66.01 Morbid (severe) obesity due to excess calories; Z68.43 Body mass index [BMI] 50.0-59.9, adult; Z12.5 Encounter for screening for malignant neoplasm of prostate; F32.9 Major depressive disorder, single episode, unspecified
CPT/HCPCS: 99397

== ENCOUNTER 2023-11-20 11:04 | Outpatient (AMB) | payer MEDICARE, SELFPAY ==
--- NOTE | 2023-11-20 11:11 | A.OFFVIS_ITS ---
Vital Signs 11/20/23 11:16 Height 6 ft 1 in BP 141/67 H Blood Pressure Location Rt brachial Position Sitting Pulse 75 Pulse Source Monitor Intake Visit Reasons: s/p colon Intake Note: Patient is present for S/P Colonoscopy Medication Tech Required: No Accompanied by: Self / Same As Patient Allergies codeine [CODEINE] Allergy (Severe, Verified 11/20/23 11:14) ANAPHYLAXIS, hives adhesive tape Adverse Reaction (Mild, Verified 11/20/23 11:14) Irritable HPI HPI s/p colon: Details: Assessment & Plan (1) Positive colorectal cancer screening using Cologuard test: Code(s): R19.5 - Other fecal abnormalities Category: Medical (2) Pre-op examination: Code(s): Z01.818 - Encounter for other preprocedural examination Category: Medical (3) Marijuana use, continuous: Code(s): F12.90 - Cannabis use, unspecified, uncomplicated Category: Medical (4) Obstructive sleep apnea on CPAP: Code(s): G47.33 - Obstructive sleep apnea (adult) (pediatric); Z99.89 - Dependence on other enabling machines and devices Category: Medical (5) Morbid obesity: Code(s): E66.01 - Morbid (severe) obesity due to excess calories Category: Medical (6) Memory deficit: Code(s): R41.3 - Other amnesia Category: Medical Plan This patient has been lost to follow-up since 01/2023, He has since had a + Cologuard He will need his labs refreshed. He is agreeable to this This will be his second colonoscopy. His first was in [address] Rahman and was negative. He has occasional diarrhea that has improved since I last saw him, no upper GI problems. There are no prior problems with anesthesia or sedation. He has asthma and NUBIA and he denies cardiac problems. He is morbidly obese with a BMI of 50. No ID problems. There is no known FHX of crc or polyps. [place] of edema of LE's and some reddening of left LE and he needs rx for more compression stockings. A note was sent to his primary care provider about this situation. Orders: Orders Comprehensive Met. Panel Today R19.5 - Other fecal abnormalities, Z01.818 - Encounter for other preprocedural examination Complete Blood Count Auto Diff Today R19.5 - Other fecal abnormalities, Z01.818 - Encounter for other preprocedural examination Medications: Discontinued eszopiclone (Lunesta) Discontinued Reason: Doctor's Order 1 mg PO BEDTIME 30 days 30 tabs 0RF LABS: Laboratory Tests 10/01/23 15:31 WBC 11.6 H Hgb 13.3 L Hct 39.6 L MCV 85.7 MCH 28.8 Plt Count 269 Estimated GFR > 60 Total Bilirubin 0.3 AST 15 ALT 18 Alkaline Phosphatase 73 COLONOSCOPY 10/30/23 Findings: Terminal Ileum-normal Cecum:normal Ascending Colon: normal Transverse Colon -normal Descending Colon: 10 mm sessile polyp removed wit cold snare and x 1 clip applied Sigmoid Colon: 6-8 mm sessile polyp removed with cold forceps, x3 semi pedunculated polyps 10-12 mm removed with cold snare, with x 3 clips applied for hemostasis --moderate diverticulosis Rectum: Retroflexion with small to medium sized internal hemorrhoids seen, grade I Anorectum - normal Intervention: cold snare, and cold forceps Impression and Post Procedure Diagnosis: diverticulosis colon polyps internal hemorrhoids Plan: High fiber diet leaflet Avoid straining at stool, epsom salts and sitz bath, anusol supps or cream Repeat Colonoscopy in 1 year or earlier if clinically indicated BIOPSY Received: 10/30/23 Diagnosis A. Colon, descending, polyp: Tubular adenoma; negative for high-grade dysplasia and carcinoma. B. Colon, sigmoid, 4 polyps: Tubulovillous adenoma with serrated features (multiple fragments, cannot evaluate margin) and tubular adenomas (multiple pieces); negative for high-grade dysplasia and carcinoma TODAY'S VISIT HE is agreeable to an 8 mos follow up. The procedure was well tolerated. The results were explained and the patient is agreeable to the follow-up interval as stated. The bowel pattern has returned to normal. Education was provided to tell any 1st degree relatives about their findings to be sure that they are screened by age 45. Educated that they will be put on a recall list when it is time for their repeat scope but should they move out of state or away from the hospital they will need to remember along with their primary to repeat the procedure in a timely fashion to avoid any adverse complications. We will bring him back in 8 months to make sure he gets on the schedule in a timely fashion to have the repeat scope. [facility] Medical History (Updated 11/19/23 @ 16:16 by KATE Angeles) Physical exam Screening PSA (prostate specific antigen) Upset stomach Pre-op examination Encounter for routine adult physical exam with abnormal findings Screening for colon cancer Medicare annual wellness visit, subsequent COVID-19 vaccine series completed Agoraphobia Anxiety Impaired fasting glucose GERD (gastroesophageal reflux disease) Depression TIA (transient ischemic attack) Sleep apnea Memory deficit Morbid obesity Toenail fungus Rash Hypertension, essential Gait difficulty Surgical History H/O colonoscopy Hx of arthroscopic knee surgery Hx of appendectomy Hx of cholecystectomy History of esophagogastroduodenoscopy (EGD) Family History Sister Dementia Other Substance use disorder Social History Housing: House Are you a primary early breastfeeding care specialist to a significant other at home: No Do you presently have visiting nurse or other home services: No Alcohol intake: never Patient Tobacco Use Status: Former Tobacco user Tobacco use type: Cigarette e-Cigarette/Vaping Use: Never Used Second Hand Smoke Exposure: No Substance Use Type: Marijuana service: No Current occupational status: other Cognitive needs: No Hearing needs: No Vision needs: Yes Review of Systems Const Denies fatigue, Denies fever(s), Denies night sweats, Denies poor appetite and Denies weight loss ENT Reports Normal hearing present, Denies dental pain, Denies dysphagia, Denies hearing loss, Denies mouth pain, Denies odynophagia, Denies throat swelling, Denies tongue swelling and Reports other (Dentition adequate) Card Reports no additional complaints Resp Reports no additional complaints GI Details: Denies abdominal pain, Denies melena, Denies bloating, Denies hematochezia, Denies constipation, Denies GI cramping, Denies dysphagia, Denies excessive flatus, Denies early satiety, Denies heartburn, Denies diarrhea, Denies nausea, Denies odynophagia, Denies vomiting and Denies hematemesis Skin/Breast Denies pruritus, Denies lesions, Denies rash and Denies jaundice Neuro Reports Normal hearing present and Denies Abnormal speech present Endo Denies fatigue Aller/Immun Denies throat swelling and Denies tongue swelling Physical Exam Vital Signs: Last Vital Signs Pulse 75 11/20/23 11:16 BP 141/67 H 11/20/23 11:16 Const General: cooperative, no acute distress, well developed and well groomed Nutritional Appearance: well nourished and obese morbidly obese Orientation/consciousness: oriented to person, oriented to place and oriented to time Limitations: No language barrier HEENT Head: Yes normocephalic and Yes atraumatic Eyes General: appearance normal, both eyes and all related structures Pupils: Equal, round and reactive pupils present Neck Neck: Yes normal visual inspection and Yes no lymphadenopathy Thyroid: Thyroid normal Resp Effort & Inspection: normal respiratory effort and able to speak in complete sentences Auscultation: clear to auscultation bilaterally Cardio Rate: regular rate Rhythm: regular rhythm Heart sounds: Normal, physiologic split S2 sound present Peripheral pulses: radial pulses present and posterior tibial pulses present GI Inspection: No distended, Yes Abdominal panniculus present and Yes obesity Palpation (GI): Soft to palpation, nontender, no guarding, not rigid and No hepatosplenomegaly present Percussion: Yes normal to percussion Auscultation: normal bowel sounds Rectal Exam - Male: Yes deferred Skin General skin exam: no rashes or lesions noted, turgor normal, skin not dry, no jaundice, No spider nevi and no striae Rashes: no rashes Nails: normal Neuro General: oriented to person, oriented to place and oriented to time Cranial nerves: Yes Equal, round and reactive pupils present and Yes Normal hearing present Speech: No Abnormal speech present Extrem General: Yes normal to inspection, No clubbing, No cyanosis and No edema Psych Appearance: grossly normal and well kempt Mental Status: mental status grossly normal Speech and movement: Normal speech and movement present Affect: normal affect Attitude: cooperative Thought process: Normal thought process present and not confabulating Thought content: Normal thought content present Insight: Fair insight present (Psych) Judgement: Fair judgement present (Psych) Results Reviewed Results Reviewed: Laboratory Tests 10/01/23 15:31 WBC 11.6 H Hgb 13.3 L Hct 39.6 L MCV 85.7 MCH 28.8 Plt Count 269 Estimated GFR > 60 Total Bilirubin 0.3 AST 15 ALT 18 Alkaline Phosphatase 73 COLONOSCOPY 10/30/23 Findings: Terminal Ileum-normal Cecum:normal Ascending Colon: normal Transverse Colon -normal Descending Colon: 10 mm sessile polyp removed wit cold snare and x 1 clip applied Sigmoid Colon: 6-8 mm sessile polyp removed with cold forceps, x3 semi pedunculated polyps 10-12 mm removed with cold snare, with x 3 clips applied for hemostasis --moderate diverticulosis Rectum: Retroflexion with small to medium sized internal hemorrhoids seen, grade I Anorectum - normal Intervention: cold snare, and cold forceps Impression and Post Procedure Diagnosis: diverticulosis colon polyps internal hemorrhoids Plan: High fiber diet leaflet Avoid straining at stool, epsom salts and sitz bath, anusol supps or cream Repeat Colonoscopy in 1 year or earlier if clinically indicated BIOPSY Received: 10/30/23 Diagnosis A. Colon, descending, polyp: Tubular adenoma; negative for high-grade dysplasia and carcinoma. B. Colon, sigmoid, 4 polyps: Tubulovillous adenoma with serrated features (multiple fragments, cannot evaluate margin) and tubular adenomas (multiple pieces); negative for high-grade dysplasia and carcinoma Assessment & Plan Assessment & Plan (1) Tubulovillous adenoma of colon: Code(s): D12.6 - Benign neoplasm of colon, unspecified Category: Medical (2) Positive colorectal cancer screening using Cologuard test: Code(s): R19.5 - Other fecal abnormalities Category: Medical Plan HE is agreeable to an 8 mos follow up. The procedure was well tolerated. The results were explained and the patient is agreeable to the follow-up interval as stated. The bowel pattern has returned to normal. Education was provided to tell any 1st degree relatives about their findings to be sure that they are screened by age 45. Educated that they will be put on a recall list when it is time for their repeat scope but should they move out of state or away from the hospital they will need to remember along with their primary to repeat the procedure in a timely fashion to avoid any adverse complications. We will bring him back in 8 months to make sure he gets on the schedule in a timely fashion to have the repeat scope. Coding Level of Care Code Est Pt Level 3 (61972) Diagnoses Tubulovillous adenoma of colon D12.6 Positive colorectal cancer screening using Cologuard test R19.5
[2023-11-20 11:16] VITALS: BP 141/67; PULSE 75
== END 2023-11-20 12:03 | disposition home or self-care (01) ==
PROVIDERS: PCP Nurse Practitioner Family; Visit Provider Nurse Practitioner
DX: D12.6 Benign neoplasm of colon, unspecified (principal); R19.5 Other fecal abnormalities
CPT/HCPCS: 99213

== ENCOUNTER → 2023-11-20 11:04 | Outpatient (BNVA) | payer MEDICARE, SELFPAY | PROVIDERS: PCP Nurse Practitioner Family; Visit Provider Nurse Practitioner | DX: R19.5 Other fecal abnormalities (principal); D12.4 Benign neoplasm of descending colon; D12.5 Benign neoplasm of sigmoid colon; Z98.890 Other specified postprocedural states | CPT/HCPCS: 99212 ==

== ENCOUNTER 2024-03-05 09:18 | Outpatient (REF) | payer MEDICARE, MEDICAID, SELFPAY ==
[2024-03-05 13:18] LABS: MANUAL DIFF FLAG NO
[2024-03-05 13:19] LABS: Appearance Urine Clear; Color Urine Yellow; Glucose Urine UA Negative (Negative); Leukocyte Esterase Urine Negative (Negative); Nitrite Urine Negative (Negative); PH 6.5 (5.0-9.0); Urine Blood Negative (Negative); Urine Ketones Negative (Negative); Urine Protein Negative (Neg-Trace)
[2024-03-05 13:41] LABS: Basophils Absolute Auto 0.1 X10*3/uL (0.0-0.2); Basophils Percent Auto 0.7 % (0-2); Eosinophils Absolute Auto 0.4 X10*3/uL (0.0-0.4); Eosinophils Percent Auto 3.8 % (0-4); Hematocrit 45.9 % (42.0-52.0); Imm Gran Abs Auto 0.04 X10*3/uL (0.00-0.03); Imm Gran Pct Auto 0.4 % (0.0-0.4); Lymphocytes Absolute Auto 2.2 X10*3/uL (1.2-4.9); Lymphocytes Percent Auto 23.4 % (20-40); Mean Corpuscular HGB Conc 32.7 g/dl (31.0-36.0); Mean Corpuscular Hemoglobin 28.4 pg (27.0-33.0); Mean Corpuscular Volume 86.8 fL (80.0-98.0); Mean Platelet Volume 10.7 fL (9.4-12.4); Monocytes Absolute Auto 0.7 X10*3/uL (0.1-1.2); Monocytes Percent Auto 6.8 % (2-11); Neutrophils Absolute Auto 6.2 x10*3/uL (2.0-8.3); Neutrophils Percent Auto 64.9 % (45-73); Platelet Count 285 X10*3/uL (160-400); Red Blood Count 5.29 X10*6/uL (4.60-5.80); Red Cell Distribution Width 14.9 % (11.0-16.0); White Blood Count 9.6 X10*3/uL (4.8-10.8)
[2024-03-05 13:45] LABS: Estimated Average Glucose 131 mg/dL; Hemoglobin A1C 170.6025 umol/L; Hemoglobin A1c % 6.2 % (<6.0); Total Hemoglobin (HGBA1C) 3825.7583 umol/L
[2024-03-05 14:18] LABS: Alanine Aminotransferase 23 U/L (0-40); Alkaline Phosphatase 77 U/L (39-117); Anion Gap 13 (12-20); Aspartate Amino Transferase 22 U/L (5-37); Bilirubin Total 0.6 mg/dL (0.0-1.0); Blood Urea Nitrogen 15 mg/dL (9-16); Calcium 10.1 mg/dL (8.4-10.2); Carbon Dioxide 24 mmol/L (22-29); Chloride 105 mmol/L (96-108); Cholesterol 161 mg/dL (<200); Estimated Glomerular Filt Rate > 60; Glucose Fasting 137 mg/dL (60-99); HDL Cholesterol 54 mg/dL (>40); LDL Cholesterol Calculated 97 mg/dL (<100); Potassium 4.5 mmol/L (3.3-5.1); Sodium 137 mmol/L (135-145); Total Protein 8.1 g/dL (6.5-8.0); Triglycerides 53 mg/dL (<150)
[2024-03-05 14:20] LABS: Prostate Specific Antigen Scr 0.34 ng/mL (<0.05-4.0)
== END 2024-03-05 09:19 | disposition home or self-care (01) ==
LOC: HO.HMGCLDS 09:18
PROVIDERS: PCP Nurse Practitioner Family; Visit Provider Nurse Practitioner Family
DX: Z00.01 Encounter for general adult medical examination with abnormal findings (principal); R73.01 Impaired fasting glucose; Z12.5 Encounter for screening for malignant neoplasm of prostate
CPT/HCPCS: 36415; 80053; 80061; 81003; 83036; 84153; 84443; 85025

== ENCOUNTER 2024-04-06 08:04 | Outpatient (AMB) | payer MEDICARE, MEDICAID, SELFPAY ==
[2024-04-06 08:15] VITALS: BP 136/84; PULSE 68; TEMP 36.6; O2SAT 98; BMI 50.4
--- NOTE | 2024-04-06 08:15 | AM.OFFWIN_ITS ---
Intake Vital Signs 04/06/24 08:15 Height 6 ft 1 in Weight 382 lb BMI 50.4 BP 136/84 Blood Pressure Location Rt brachial Position Sitting Pulse 68 Pulse Source Pulse Oximeter Temp 97.8 F Temp Source Oral Pulse Oximetry (%) 98 Oxygen Delivery Method Room Air Intake Visit Reasons: EP-cough, stuffy nose Intake Note: Patient here for cough, congestion and SOB that started saturday Patient Tobacco Use Status: Former Tobacco user Allergies codeine [CODEINE] Allergy (Severe, Verified 04/06/24 08:25) ANAPHYLAXIS, hives adhesive tape Adverse Reaction (Mild, Verified 04/06/24 08:25) Irritable Do you need a note to return to daycare/school/sports/work: No HPI EP-cough, stuffy nose HPI Details This note is constructed using voice recognition software. While every effort has been made to ensure accuracy, furniture sprayer errors may have been included. The patient is a 63 year old male who presents to the clinic today with cough, congestion, and reported dyspnea for the past 4 days. He denies fever, chills, productive sputum, body aches, sore throat. He reports that his girlfriend was coughing a few days prior to his symptom onset when he developed symptoms. He has not taken anything to help alleviate the symptoms, as he can not afford anything. He needs all medications to be prescribed for his ability to afford them. [facility] Medical History (Updated 11/19/23 @ 16:16 by KATE Angeles) Physical exam Screening PSA (prostate specific antigen) Upset stomach Pre-op examination Encounter for routine adult physical exam with abnormal findings Screening for colon cancer Medicare annual wellness visit, subsequent COVID-19 vaccine series completed Agoraphobia Anxiety Impaired fasting glucose GERD (gastroesophageal reflux disease) Depression TIA (transient ischemic attack) Sleep apnea Memory deficit Morbid obesity Toenail fungus Rash Hypertension, essential Gait difficulty Surgical History H/O colonoscopy Hx of arthroscopic knee surgery Hx of appendectomy Hx of cholecystectomy History of esophagogastroduodenoscopy (EGD) Family History Sister Dementia Other Substance use disorder Social History (Reviewed 11/18/23 @ 09:15 by Chucho Ortiz [facility]) Housing: House Are you a primary pediatric care coordinator to a significant other at home: No Do you presently have visiting nurse or other home services: No Alcohol intake: never Patient Tobacco Use Status: Former Tobacco user Tobacco use type: Cigarette e-Cigarette/Vaping Use: Never Used Second Hand Smoke Exposure: No Substance Use Type: Marijuana service: No Current occupational status: other Cognitive needs: No Hearing needs: No Vision needs: Yes Review of Systems Const All systems reviewed & are unremarkable except as noted in HPI and below Physical Exam Vital Signs: Last Vital Signs Temp 97.8 F 04/06/24 08:15 Pulse 68 04/06/24 08:15 BP 136/84 04/06/24 08:15 Pulse Ox 98 04/06/24 08:15 Oxygen Delivery Method Room Air 04/06/24 08:15 BMI result Body Mass Index 50.4 Const General: cooperative, healthy appearing, comfortable and no acute distress Orientation/consciousness: patient oriented x3 Limitations: no limitations HEENT Head: Yes normal to inspection Ears: hearing grossly normal bilaterally, external ears normal and TM's normal bilaterally General nose exam: Normal external nose present, Normal nares present and No nasal discharge present Face and sinus: Yes normal facial exam and Yes sinuses nontender Mouth: Normal oral and palatal mucosa present and moist mucous membranes Throat: Yes tonsils normal, Yes uvula midline and Yes posterior oropharynx abnormal (Erythema) Eyes General: appearance normal, both eyes and all related structures Neck Neck: Yes normal visual inspection Resp Effort & Inspection: normal respiratory effort, able to speak in complete sentences, Actively coughing, no respiratory distress, not tachypneic, no tripod positioning and no use of accessory muscles Auscultation: clear to auscultation bilaterally (But slightly tight) Cardio Jugular venous distension: no JVD Rate: regular rate Rhythm: regular rhythm Heart sounds: S1 normal heart sound present, S2 normal heart sound present, no click, no gallops, no murmurs and no rubs Skin General skin exam: no rashes or lesions noted, elasticity normal and turgor normal Neuro General: patient oriented x3 Extrem General: Yes normal to inspection and Yes no clubbing, cyanosis or edema Assessment & Plan Assessment & Plan (1) URI (upper respiratory infection): Code(s): J06.9 - Acute upper respiratory infection, unspecified Qualifiers: URI type: unspecified URI Qualified Code(s): J06.9 - Acute upper respiratory infection, unspecified Plan: Viral swab obtained to rule out Covid, Flu, and RSV based on symptoms. Advised mask wearing while symptomatic and quarantine per current CDC guidelines. Reviewed at home support methods including hydration, humidification, vix vapor rub, sinus rinse. Prescription provided for guaifenesin, for symptomatic management of cough, as well as albuterol inhaler for symptomatic management. Reviewed appropriate use of medication. Discussed consideration of prednisone for symptoms, however patient declined at this time. Advised follow up with worsening symptoms such as dyspnea at rest, which would require emergent evaluation. Plan See above for full details and plan. Orders: Orders SARS-CoV2/FLU/RSV Today J06.9 - Acute upper respiratory infection, unspecified Medications: New guaifenesin 400 mg PO Q4H PRN 30 tabs 0RF cough albuterol sulfate 90 mcg/actuation 1 - 2 puffs inhalation QID PRN 6.7 grams 0RF Shortness Of Breath Or Wheezing Coding Level of Care Code Est Pt Level 3 (55865) Diagnoses Upper respiratory tract infection, unspecified type J06.9 URI type: unspecified URI
== END 2024-04-06 08:55 | disposition home or self-care (01) ==
PROVIDERS: PCP Nurse Practitioner Family; Visit Provider Registered Nurse
DX: J06.9 Acute upper respiratory infection, unspecified (principal)

== ENCOUNTER 2024-04-06 08:04 | Outpatient (REF) | payer MEDICARE, MEDICAID, SELFPAY ==
[2024-04-06 11:04] LABS: Influenza A PCR NEGATIVE (Negative); Influenza B PCR NEGATIVE (Negative); Resp Syncy Virus RNA Qual PCR NEGATIVE (Negative); SARS COV2 PCR INHOUSE NEGATIVE (Negative)
== END 2024-04-06 08:05 | disposition home or self-care (01) ==
LOC: HO.LNP 08:04
PROVIDERS: PCP Nurse Practitioner Family; Visit Provider Registered Nurse
DX: J06.9 Acute upper respiratory infection, unspecified (principal)
CPT/HCPCS: 0241U; 99212

== ENCOUNTER 2024-05-19 14:23 | Outpatient (AMB) | payer MEDICARE, SELFPAY ==
[2024-05-19 14:25] VITALS: BP 132/74; PULSE 68; O2SAT 97; BMI 51.2
--- NOTE | 2024-05-19 14:25 | A.OFFPC_ITS ---
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: No Accompanied by: Self / Same As Patient Allergies codeine [CODEINE] Allergy (Severe, Verified 05/19/24 14:25) ANAPHYLAXIS, hives adhesive tape Adverse Reaction (Mild, Verified 05/19/24 14:25) Irritable Medication List - Last Reconciled 05/19/24 by Chucho Ortiz, [facility] albuterol sulfate 90 mcg/actuation 1 - 2 puffs inhalation QID PRN amlodipine 10 mg PO DAILY 90 days lisinopril 10 mg PO DAILY Tobacco use date assessed: 05/19/24 Fall risk assessment: No Falls in past year Last assessed Fall Risk: 05/19/24 Dental Screening Dental Screen Date: 05/19/24 Did you have a dental visit in the last 12 months?: Yes Did you have a dental problem in the last 6 months where you did not have access to dental care?: No Was dental information given to patient?: Patient has dentist HPI 6 month follow up HPI Details Chief Complaint Patient presents with ongoing cough and intermittent chest pressure. History of Present Illness The patient is a 63-year-old male presenting with persistent cough and intermittent chest pressure. He experienced bouts of cough starting in April, initially associated with a suspected viral illness which returned negative results. He was started on guaifenesin and reports improvement in breathing, but the cough persists in a semi-productive form. He denies any accompanying fever or chills. The patient describes episodes of intermittent right-sided chest pressure, initially perceived as pain, transitioning to discomfort described as pressure. He denies shortness of breath or increase in discomfort with exertion. Upper respiratory tract function appears unaffected, with clear lungs noted during examination despite his significant body habitus. The patient has ceased smoking marijuana, which he engaged in heavily in the past. NOTE: CP for over a month. Social History - Used to consume marijuana heavily; has since ceased usage. - Reports significant morbid obesity. Health Maintenance Review of Systems - Respiratory: Reports persistent cough; No shortness of breath. - Constitutional: Denies fever and chill s. - Cardiovascular: Reports intermittent c hest pressure. Physical Exam General: Cooperative, healthy appearing, comfortable, no acute distress and well developed, very heavyset morbidly obese Orientation: Patient oriented x3 Limitations: No limitations Head: Normal to inspection Ears: Hearing grossly normal bilaterally Nose: Normal external nose present Face and sinus: Normal facial exam Eyes: Appearance normal, both eyes and all related structures Neck: Normal visual inspection and Yes full ROM Respiratory: Normal respiratory effort and able to speak in complete sentences. Clear to auscultation bilaterally despite very large body habitus Cardiovascular: Regular rate and rhythm. Normal S1 and S2 GI: Normal to inspection. Soft to palpation and nontender Skin: No rashes or lesions noted Neuro: Patient oriented x3 Extremities: Normal to inspection Results EKG: with LAFB, ordering echo, stress test, follow up with cardio Plan - Obtain an EKG to further assess the et iology of intermittent chest pressure. pt knows to call 911, or go to ER with worsening symptoms - Perform a chest X-ray to evaluate any underlying respiratory conditions. - Continue monitoring respiratory sympto ms and adjust guaifenesin dosage as needed based on response. - Patient was informed and verbally consented to the use of an ambient scribe for clinic note documentation during this visit. Discussion Notes During the consultation, I discussed with the patient the concerns regarding his persistent cough and chest pressure. I indicated that while there is no immediate evidence of viral illness, further diagnostic testing via EKG and chest X-ray would provide additional insights. We discussed the importance of discontinuing marijuana consumption, which the patient has already successfully done. I emphasized the necessity of ongoing monitoring of his respiratory condition and assured him that we would adjust management plans as necessary based on diagnostic findings. Options for managing obesity were not discussed during this visit. Patient Instructions - Undergo the EKG and chest X-ray as vimal nned. - Continue with current guaifenesin kylee men as per previous instructions. - Return for a follow-up to discuss diag nostic test results and adjust treatment if required. - Report any significant changes in symp toms, especially regarding chest pressure or breathing difficulties, immediately. [facility] Medical History (Reviewed 05/19/24 @ 16:17 by Chucho Ortiz, [facility]) Physical exam Screening PSA (prostate specific antigen) Upset stomach Pre-op examination Encounter for routine adult physical exam with abnormal findings Screening for colon cancer Medicare annual wellness visit, subsequent COVID-19 vaccine series completed Agoraphobia Anxiety Impaired fasting glucose GERD (gastroesophageal reflux disease) Depression TIA (transient ischemic attack) Sleep apnea Memory deficit Morbid obesity Toenail fungus Rash Hypertension, essential Gait difficulty Surgical History H/O colonoscopy Hx of arthroscopic knee surgery Hx of appendectomy Hx of cholecystectomy History of esophagogastroduodenoscopy (EGD) Family History Sister Dementia Other Substance use disorder Social History Housing: House Are you a primary animal care supervisor to a significant other at home: No Do you presently have visiting nurse or other home services: No Alcohol intake: never Patient Tobacco Use Status: Former Tobacco user Tobacco use type: Cigarette e-Cigarette/Vaping Use: Never Used Second Hand Smoke Exposure: No Substance Use Type: Marijuana service: No Current occupational status: other Cognitive needs: No Hearing needs: No Vision needs: Yes Questionnaire PHQ-9 Over the last 2 weeks, how often have you been bothered by any of the following problems? 62960 - PHQ-9 Billing: Patient declined-do not bill Source: Developed by Drs. Srinivasan Valdez, Whit Vogt, Travon Gunn and colleagues, with an educational tahira from [email or web address]. Thrive Questionnaire Date Thrive assessed: 05/19/24 I am a: Patient What is your living situation today?: I choose not to answer this question Within the past 12 months, did the food you bought not last and you didn't have the money to get more?: I choose not to answer this question Within the past 12 months, did you worry whether your food would run out before you got money to buy more?: I choose not to answer this question Do you have trouble paying for medicines?: I choose not to answer this question Do you have trouble getting transportation to medical appointments?: I choose not to answer this question Do you have trouble paying your heating and electricity bill?: I choose not to answer this question Do you have trouble taking care of your child, family member or friend?: I choose not to answer this question Do you have trouble with day-to-day activities such as bathing, preparing meals, shopping, managing finances, etc.?: I choose not to answer this question Are you currently unemployed and looking for a job?: I choose not to answer this question Are you interested in more education?: I choose not to answer this question Please select the resources that you would like help with: None Currently or been in a relationship where the following occur: I choose not to answer THRIVE Score: 0 AUDIT C Alcohol Use Questionnaire (AUDIT-C) 1. How often do you have a drink containing alcohol?: Never 3. How often do you have six or more drinks on one occasion?: Never Total Score: 0 Score Reviewed/Action Taken: Yes MAICOL-7 AMB Questionnaire MAICOL-7 Date MAICOL - 7 assessed: 05/19/24 (patient declined) Source: Developed by Drs. Srinivasan Valdez, Whit Vogt, Travon Gunn and colleagues, with an educational tahira from [email or web address]. Physical exam (Primary Care) Vital Signs: Last Vital Signs Pulse 68 05/19/24 14:25 BP 132/74 05/19/24 14:25 Pulse Ox 97 05/19/24 14:25 BMI result Body Mass Index 51.2 Tobacco/Smoking Status: Tobacco use Status Tobacco use date assessed 05/19/24 05/19/24 14:26 Patient Tobacco Use Status Former Tobacco user 05/19/24 14:26 Tobacco use type Cigarette 05/19/24 14:26 e-Cigarette/Vaping Use Never Used 05/19/24 14:26 Thrive Assessment: Date of Thrive Assessment Date Thrive assessed 05/19/24 05/19/24 14:26 Currently or been in a relationship where the following occur: I choose not to answer Coding Level of Care Code Est Pt Level 3 (53907) Diagnoses Cough R05.9 Chest discomfort R07.89 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 Orders: Orders CA stress test Today I44.4 - Left anterior fascicular block, R07.89 - Other chest pain XR chest 2V Today R05.9 - Cough, unspecified AMB EKG-In Office Today R07.89 - Other chest pain NM cardiolite stress test Today I44.4 - Left anterior fascicular block, R07.89 - Other chest pain CA echo transthoracic complete Today I44.4 - Left anterior fascicular block, R07.89 - Other chest pain Referrals Cardiology Referral I44.4 - Left anterior fascicular block, R07.89 - Other chest pain
--- OUTSIDE RECORDS SUMMARY | 2024-05-19 16:53 | XMS_ITS | Patient Health Record ---
Author Organization [facility] Address [address] [place] [address] Care Team Providers Care Office Services Associate Name Role Phone Rufino JUNE, [facility] Provider Angel Guzman Jr Unavailable ALLERGIES Allergen (clinical drug ingredient) Drug/Non Drug Allergy documented on EMR Reaction Allergy Type Onset Date Status codeine codeine (uncoded) Unknown Allergy Ac tive REASON FOR REFERRAL No Information MEDICATIONS Medication SIG (Take, Route, Frequency, Duration) Notes Start Date End Date Status Lisinopril 5 MG TAKE 1 TABLET BY KRZYSZTOF TH DAILY Oral for 90 Active amLODIPine Besylate 10 MG Oral for 90 Active MiraLax (colon prep) 17 GM/SCOOP mixed with Gatorade or Crystal Light Orally begin at 5:00 p.m. the day before the procedure for 1 day 08/03/2021 Active IMMUNIZATIONS Vaccine Route Administration Date Status Comme nts Flu vaccine no Preserv 3 and > Unknown 02/21/2016 Admin istered Flu vaccine no Preserv 3 and > Unknown 02/28/2017 Admin istered Influenza Unknown 01/04/2021 Administered SOCIAL HISTORY Sex Assigned At : Social History Observation Description Sex Assigned At Unknown Alcohol Screen Question Answer Notes Did you have a drink containing alcohol in the p ast year? No Points 0 Interpretation Negative PROBLEMS Problem Type ICD Code Onset Dates Problem Status W/U Status Risk SNOMED Code Notes Problem Colon cancer screening (Z12.11) Active confirmed 557007600 Problem Gastro-esophageal reflux disease without esophagitis (K21.9) Active confirmed 068481530 Problem Hypertension (I10) Active confirmed 383 43856 Problem Gastroesophageal reflux disease with esophagitis without hemorrhage (K21.00) Active confirmed 472854757 PLAN OF TREATMENT Future Test Test Name Order Date COLONOSCOPY 02/28/2011 UPPER GI ENDOSCOPY 06/06/2016 COLONOSCOPY 08/03/2021 Insurance Providers Payer Name Payer Address Payer Phone Subscriber Number Group Number Insured Name Patient Relationship to Insured Coverage Start Date Coverage End Date MEDICARE OF [place] [address] [place] [address] [id number] BELKIS FOOTE Self - patient is the insured [facility] [address] [place] [address] [id number] BELKIS FOOTE Self - patient is the insured MEDICAL (GENERAL) HISTORY Medical History History ICD Code hypertension type II diabetes depression TIA 2003 NUBIA/CPAP Gastroesophageal reflux disease, EGD/17, mild distal esophagitis Surgical History Surgery Date(Month/Year) cholecystectomy appendectomy arthroscopic knee surgery
== END 2024-05-19 16:16 | disposition home or self-care (01) ==
PROVIDERS: PCP Nurse Practitioner Family; Visit Provider Nurse Practitioner Family
DX: R05.9 Cough, unspecified (principal); R07.89 Other chest pain; I44.4 Left anterior fascicular block

== ENCOUNTER → 2024-05-19 14:23 | Outpatient (BNVA) | payer MEDICARE, SELFPAY | PROVIDERS: PCP Nurse Practitioner Family; Visit Provider Nurse Practitioner Family | DX: R05.3 Chronic cough (principal); R07.89 Other chest pain; I44.4 Left anterior fascicular block | CPT/HCPCS: 99212 ==

== ENCOUNTER 2024-05-21 13:05 | Outpatient (REF) | payer MEDICARE, MEDICAID, SELFPAY ==
--- NOTE | ~2024-05-21 | XR_ITS ---
EXAMINATION: XR CHEST 2 VIEWS HISTORY: R05.9 - Cough, unspecified COMPARISON: Comparison is made with the prior examination dated 10/01/2014. FINDINGS: PA and lateral views of the chest are submitted. There is patchy of opacity posteriorly on the lateral view, suggestive of pneumonia. This is not well-visualized on the PA view. There is no pleural effusion, pneumothorax, or pulmonary vascular congestion. The heart is normal in size. The bones are intact. XR/XR chest 2V IMPRESSION: Patchy opacity posteriorly on the lateral view, suggestive of lower lobe pneumonia. Follow-up is recommended to document resolution. Electronically signed by: Srinivasan Huerta MD 05/22/2024 07:59 AM EST
== END 2024-05-21 13:06 | disposition home or self-care (01) ==
LOC: HO.HMGCX 13:05
PROVIDERS: PCP Nurse Practitioner Family; Visit Provider Nurse Practitioner Family
DX: R05.9 Cough, unspecified (principal)
CPT/HCPCS: 71046

== ENCOUNTER → 2024-05-21 13:13 | Outpatient (BNV) | payer MEDICARE, MEDICAID, SELFPAY | PROVIDERS: PCP Nurse Practitioner Family; Visit Provider Radiology Diagnostic Radiology | DX: R91.8 Other nonspecific abnormal finding of lung field (principal) | CPT/HCPCS: 71046 ==

== ENCOUNTER → 2024-05-27 07:49 | Outpatient (REF) | payer MEDICARE, MEDICAID, SELFPAY ==
--- NOTE | 2024-05-27 07:52 | CA_ITS ---
Transthoracic Echocardiogram Patient (Last, First, Middle): Chucho Pichardo A Gender: Male Date of : 1960 Age: 63 Procedure Date: 05/27/2024 Procedure Type: Transthoracic Echocardiogram Location: OP Height: 185.42 cm Weight: 167.83 kg BSA: 2.79 m2 Heart Rate: bpm BP: 132 / 80 mmHg Canvassing Manager: Referring MD: Chucho Ortiz [facility]- Producer: Florencio Thomas MD Symptoms: R07.89 - Other chest pain Study Quality: Adequate/Contrast used ECG Rhythm: Sinus Conclusions: - 1. Normal LV ejection fraction of 60 65% with mild LVH 2. Trivial aortic regurgitation 3. Mildly dilated left atrium 4. Mildly dilated ascending aorta at 3.9 cm 5. Normal RV systolic pressure 6. No gross pericardial effusion Findings Procedure Information Contrast agent, definity, is being given per protocol without apparent complications. Left Ventricle Normal left ventricular size and systolic function. There is mildly increased left ventricular wall thickness. The visually estimated ejection fraction is between 60-65%. Spectral Doppler is indicative of a normal filling pattern. Right Ventricle Normal right ventricular cavity size and systolic function. Atria The left atrium is mildly dilated. There is no evidence of interatrial shunt. The right atrium is normal in size. Aortic Valve The aortic valve structure and function is likely normal. There is no aortic valve stenosis. There is trace (trivial) aortic valve regurgitation. Mitral Valve Likely normal mitral valve structure and function. There is trace mitral valve regurgitation. There is no mitral valve stenosis. Pulmonic Valve The pulmonic valve was not well visualized. Tricuspid Valve Likely normal tricuspid valve structure and function. There is trace tricuspid valve regurgitation. The right ventricular systolic pressure is normal. The right ventricular systolic pressure is 17 mmHg. Normal right atrial pressure. There is no evidence of pulmonary hypertension. Great Vessels The pulmonary artery was not well visualized. There is mild dilatation of the ascending aorta measuring 3.90 cm. Venous The inferior vena cava is normal in size and collapses greater than 50% with inspiration. Pericardium/Pleural There is no evidence of pericardial effusion. Measurements 2D Linear Measurements IVSd: 1.33 0.6-0.9/0.6-1.0 cm LVIDd: 5.33 3.9-5.3/4.2-5.9 cm LVIDd Index: 1.91 2.4-3.2/2.2-3.1 cm/m2 LVIDs: 3.45 2.0-3.6 cm LVPWd: 1.33 0.7-1.1 cm Ao Root: 3.50 2.1-3.5 cm LA Diam: 4.50 2.7-3.8/3.0-4.0 cm LAIDs Index: 1.61 1.5-2.3 cm/m2 LV Mass: 373.01 67-162/88-224 g LV Mass Index: 133.70 43-95/49-115 g/m2 LVOT Diam: 2.40 3.0+(-)1.3 cm 2D Systolic Function EF 4C: 64.90 >55% EF 2C: 63.70 >55% EF BiP: 64.40 >55% Mitral Valve MV Pk E: 0.90 MV PK A: 0.79 MV Decel Time: 225.00 E/A: 1.10 E'Lateral: 7.94 E'Medial: 5.44 E/E' Med: 16.50 E/E' Lat: 11.30 PHT: 66.00 MVA PHT: 3.33 Decel [place]: 3.98 Aortic Valve AoV Pk Nathan: 1.60 AoV Pk Grad: 10.00 LVOT LVOT Pk Nathan: 1.03 LVOT Mn Nathan: 0.69 LVOT VTI: 0.26 LVOT Pk Grad: 4.00 LVOT Mn Grad: 2.00 LVOT Diam: 2.40 LVOT Area: 4.52 Diastolic Function MV Pk E: 0.90 MV Pk A: 0.79 E/A: 1.10 E'Medial: 5.44 E/E' Med: 16.50 E' Laterial: 7.94 E/E' Lat: 11.30 Right Ventricle TAPSE (mm): 27.00 TVS' Nathan: 13.00 Tricuspid Valve TR Pk Nathan: 1.90 TR Pk Grad: 14.00 RA Press: 3.00 RVSP: 17.00 Great Vessels Aorta Ao Root-2D: 3.50 2.0-3.7 cm Ao Asc: 3.90 2.1-3.4 cm Pulmonary Valve PV Pk Nathan: 0.99 Peak PV Grad: 4.00 Updated in Other Vendor System with Status of Final Florencio Thomas MD electronically signed on 05/27/2024 3:20:21 PM with status of Final
== END ==
LOC: HO.CARD 07:49
PROVIDERS: PCP Nurse Practitioner Family; Visit Provider Nurse Practitioner Family
DX: R07.89 Other chest pain (principal); I44.4 Left anterior fascicular block
CPT/HCPCS: 93306; Q9957

== ENCOUNTER → 2024-05-27 07:52 | Outpatient (BNV) | payer MEDICARE, MEDICAID, SELFPAY | PROVIDERS: PCP Nurse Practitioner Family; Visit Provider Internal Medicine Cardiovascular Disease | DX: I35.1 Nonrheumatic aortic (valve) insufficiency (principal) | CPT/HCPCS: 93306 ==

== ENCOUNTER 2024-06-06 09:59 | Emergency (ER) | payer MEDICARE, MEDICAID, SELFPAY ==
--- NOTE | ~2024-06-06 | XR_ITS ---
CLINICAL HISTORY: sob 2 view chest x-ray Comparison: CR/SR - XR CHEST 2V - 05/21/24 13:20 EST Findings: The lungs are clear. Heart size is normal. No acute fracture. IMPRESSION: 1. No acute findings. This document has been electronically signed by: Kiran Steele MD on 06/06/2024 15:24:31
[2024-06-06 10:02] VITALS: PULSE 69; RESP 20; TEMP 36.5; O2SAT 95; BMI 50.3
[2024-06-06 10:43] LABS: MANUAL DIFF FLAG NO
[2024-06-06 10:50] LABS: Basophils Absolute Auto 0.1 X10*3/uL (0.0-0.2); Basophils Percent Auto 0.8 % (0-2); Eosinophils Absolute Auto 0.4 X10*3/uL (0.0-0.4); Eosinophils Percent Auto 7.3 % (0-4); Hemoglobin 14.4 g/dl (14.0-18.0); Imm Gran Abs Auto 0.01 X10*3/uL (0.00-0.03); Imm Gran Pct Auto 0.2 % (0.0-0.4); Lymphocytes Absolute Auto 1.3 X10*3/uL (1.2-4.9); Lymphocytes Percent Auto 21.2 % (20-40); Mean Corpuscular HGB Conc 34.3 g/dl (31.0-36.0); Mean Corpuscular Hemoglobin 28.6 pg (27.0-33.0); Mean Corpuscular Volume 83.5 fL (80.0-98.0); Mean Platelet Volume 9.4 fL (9.4-12.4); Monocytes Absolute Auto 0.9 X10*3/uL (0.1-1.2); Monocytes Percent Auto 14.3 % (2-11); Neutrophils Absolute Auto 3.4 x10*3/uL (2.0-8.3); Neutrophils Percent Auto 56.2 % (45-73); Platelet Count 218 X10*3/uL (160-400); Red Blood Count 5.03 X10*6/uL (4.60-5.80); Red Cell Distribution Width 14.1 % (11.0-16.0)
[2024-06-06 10:55] LABS: Anion Gap 14 (12-20); Blood Urea Nitrogen 16 mg/dL (9-16); Calcium 9.1 mg/dL (8.4-10.2); Carbon Dioxide 21 mmol/L (22-29); Chloride 108 mmol/L (96-108); Creatinine Clr Calc Pharmacy 138.6; Estimated Glomerular Filt Rate > 60; Glucose Random 134 mg/dL (60-115); Potassium 3.9 mmol/L (3.3-5.1); Sodium 139 mmol/L (135-145)
[2024-06-06 11:24] LABS: Influenza A PCR NEGATIVE (Negative); Influenza B PCR NEGATIVE (Negative); Resp Syncy Virus RNA Qual PCR NEGATIVE (Negative); SARS COV2 PCR INHOUSE POSITIVE (Negative)
[2024-06-06 11:31] VITALS: BP 188/103; PULSE 67; RESP 20; TEMP 36.9; O2SAT 97
--- NOTE | 2024-06-06 12:21 | ED_ITS ---
HPI - URI/Sore Throat General Chief Complaint: Upper Respiratory Symptoms Stated Complaint: sob sent in by urgent care Time Seen by Provider: 06/06/24 12:17 Source: patient and RN notes reviewed Mode of arrival: ambulatory Limitations: no limitations History of Present Illness ED Provider: Keyona Malone PA-C [facility] Narrative: This is a 63-year-old male who presents emergency department for evaluation of cough, congestion, and shortness of breath since yesterday. He reports that he just recovered from pneumonia, took his last dose of antibiotic yesterday, and later on in the evening he felt congestion, cough, and shortness of breath. He denies any chest pain or chest tightness. No known sick contacts. No known fevers, abdominal pain, nausea, vomiting or diarrhea. No other complaints or concerns at this time. MD elicited complaint: cough and rhinorrhea Able to tolerate fluids by mouth: Yes Exacerbating factors: nothing Relieving factors: nothing Associated symptoms: denies other symptoms Treatments prior to arrival: none Related Data Previous Rx's ?Medication ?Instructions ?Recorded amlodipine 10 mg tablet 10 mg PO DAILY 90 days #90 tabs 03/27/24 albuterol sulfate 90 mcg/actuation 1 - 2 puff inhalation QID PRN 04/06/24 aerosol inhaler Shortness Of Breath Or Wheezing #6.7 grams amoxicillin 875 mg-potassium 1 tab PO Q12H 10 days #20 tabs 05/22/24 clavulanate 125 mg tablet azithromycin 250 mg tablet See Rx Instructions PO .COMPLEX #6 05/22/24 tabs lisinopril 10 mg tablet 10 mg PO DAILY #90 tabs 06/03/24 Allergies Allergy/AdvReac Type Severity Reaction Status Date / Time codeine [CODEINE] Allergy Severe ANAPHYLAXIS, Verified 06/06/24 10:06 hives adhesive tape AdvReac Mild Irritable Verified 06/06/24 10:06 Review of Systems 2 Review of Systems: Yes all other systems are reviewed and are negative Constitutional: Constitutional: Reports as per [facility] Past Medical History Medical History Physical exam Screening PSA (prostate specific antigen) Upset stomach Pre-op examination Encounter for routine adult physical exam with abnormal findings Screening for colon cancer Medicare annual wellness visit, subsequent COVID-19 vaccine series completed Agoraphobia Anxiety Impaired fasting glucose GERD (gastroesophageal reflux disease) Depression TIA (transient ischemic attack) Sleep apnea Memory deficit Morbid obesity Toenail fungus Rash Hypertension, essential Gait difficulty Surgical History H/O colonoscopy Hx of arthroscopic knee surgery Hx of appendectomy Hx of cholecystectomy History of esophagogastroduodenoscopy (EGD) Family History Family History Sister Dementia Other Substance use disorder Social History Social History Housing: House Are you a primary adult care manager to a significant other at home: No Do you presently have visiting nurse or other home services: No Alcohol intake: never Patient Tobacco Use Status: Former Tobacco user Tobacco use type: Cigarette e-Cigarette/Vaping Use: Never Used Second Hand Smoke Exposure: No Substance Use Type: Marijuana Advance Directives: No Advance Directives Information Provided: No Do you have a plan to hurt others: No Plan service: No Current occupational status: other Cognitive needs: No Hearing needs: No Vision needs: Yes Physical Exam 2 Vital Signs: Vital Signs: Last Vital Signs Temp 98.4 F 06/06/24 11:31 Pulse 70 06/06/24 12:22 Resp 20 06/06/24 12:22 BP 151/97 H 06/06/24 12:22 Pulse Ox 98 06/06/24 12:22 O2 Del Method Room Air 06/06/24 12:22 BMI result Body Mass Index 50.3 Const: General: cooperative, comfortable and no acute distress O rientation/consciousness: patient oriented x3 Limitations: no limitations HEENT: Head: Yes normal to inspection, Yes normocephalic and Yes atraumatic Ears: hearing grossly normal bilaterally General nose exam: Normal external nose present Face and sinus: Yes normal facial exam Mouth: Normal oral and palatal mucosa present, oropharynx normal and moist mucous membranes Throat: Yes posterior oropharynx normal Eyes: General: appearance normal, both eyes and all related structures E yelids: Yes eyelids normal Conjunctivae: conjunctivae normal Sclerae: s clerae normal Pupils: Equal, round and reactive pupils present EOM: EOMs intact bilaterally Neck: Neck: Yes normal visual inspection, Yes full ROM and Yes no lymphadenopathy Lymphatic: no lymphadenopathy noted Chest: Chest palpation & inspection: normal inspection of the chest Resp: Effort & Inspection: normal respiratory effort and able to speak in complete sentences Auscultation: clear to auscultation bilaterally, no crackles, no rales, no rhonchi and no wheezes Cardio: Rate: regular rate Rhythm: regular rhythm Heart sounds: S1 normal heart sound present and S2 normal heart sound present GI: Inspection: Yes normal to inspection Skin: General skin exam: no rashes or lesions noted Trauma: no lacerations or abrasions Wounds: no wounds Neuro: General: patient oriented x3 and moves all extremities Cranial nerves: Yes Equal, round and reactive pupils present Extrem: General: Yes normal to inspection Right upper extremity: normal to inspection Left upper extremity: normal to inspection Right lower extremity: normal to inspection Left lower extremity: normal to inspection Course Reevaluation(s) Reevaluation #1: We were still awaiting chest x-ray for patient, attempt to reach out to the radiology department for them to push the images. Upon my reassessment, patient appears to have left without completing treatment. Time: 15:17 Medical Decision Making Medical Decision Making [facility] Narrative: This is a 16-aens-jer-male who presents to the ER with complaints of cough and shortness of breath which started yesterday. On arrival, pt hypertensive, however improved to 151/97 upon my assessment. He is speaking in full sentences under no acute distress. Lungs CTAB. Recent Pneumonia infection that he completed treatment for. Viral swabs were obtained prior to my assessment. He tested positive for covid. Labs reveal no leukocytosis, stable H&H, no significant electrolyte derangements. I added trop, bnp, awaiting cxr report. Differential Diagnosis Differential Diagnoses: The differential diagnosis associated with the presentation includes covid, flu, pneumonia, acs - unlikely Admission/Observation Consideration of admission/observation: Escalation of care including admission/observation considered Lab Data [facility] Lab Attestation statement: I reviewed the patient's lab results. No leukocytoosis, stable H&H, neg trop, BNP within normal limits. 06/06/24 10:38 06/06/24 10:38 Labs: Lab Results 06/06/24 Range/Units 10:38 WBC 6.0 (4.8-10.8) X10*3/uL RBC 5.03 (4.60-5.80) X10*6/uL Hgb 14.4 (14.0-18.0) g/dl Hct 42.0 (42.0-52.0) % MCV 83.5 (80.0-98.0) fL MCH 28.6 (27.0-33.0) pg MCHC 34.3 (31.0-36.0) g/dl RDW 14.1 (11.0-16.0) % Plt Count 218 (160-400) X10*3/uL MPV 9.4 (9.4-12.4) fL Immature Gran % (Auto) 0.2 (0.0-0.4) % Neut % (Auto) 56.2 (45-73) % Lymph % (Auto) 21.2 (20-40) % Woodson % (Auto) 14.3 H (2-11) % Eos % (Auto) 7.3 H (0-4) % Baso % (Auto) 0.8 (0-2) % Lymph # (Auto) 1.3 (1.2-4.9) X10*3/uL Woodson # (Auto) 0.9 (0.1-1.2) X10*3/uL Eos # (Auto) 0.4 (0.0-0.4) X10*3/uL Baso # (Auto) 0.1 (0.0-0.2) X10*3/uL Abs Immat Gran (auto) 0.01 (0.00-0.03) X10*3/uL Absolute Neuts (auto) 3.4 (2.0-8.3) x10*3/uL Absolute Nucleated RBC 0.000 (0.0-0.012) X10*3/uL Nucleated RBC % (auto) 0.0 (0.0-0.2) /100WBC Sodium 139 (135-145) mmol/L Potassium 3.9 (3.3-5.1) mmol/L Chloride 108 (96-108) mmol/L Carbon Dioxide 21 L (22-29) mmol/L Anion Gap 14 (12-20) BUN 16 (9-16) mg/dL Creatinine 0.88 (0.5-1.4) mg/dL Estim Creat Clear Calc 138.6 Estimated GFR > 60 Random Glucose 134 H (60-115) mg/dL Calcium 9.1 D (8.4-10.2) mg/dL Total Bilirubin 0.3 (0.0-1.0) mg/dL Direct Bilirubin 0.1 (0.0-0.5) mg/dL AST 21 (5-37) U/L ALT 19 (0-40) U/L Alkaline Phosphatase 84 (39-117) U/L Troponin I High Sens < 2.7 (<3.5-35.0) ng/L B-Natriuretic Peptide 36 (<100) pg/mL Total Protein 7.8 (6.5-8.0) g/dL Albumin 3.8 (3.5-5.0) g/dL Influenza Type A (PCR) NEGATIVE (Negative) Influenza Type B (PCR) NEGATIVE (Negative) RSV RNA Qual (PCR) NEGATIVE (Negative) SARS-CoV-2 RNA (RT-PCR) POSITIVE A (Negative) Independent Interpretation I performed an independent interpretation of an: EKG Interpretation: EKG sinus rhythm at a venticular rate of 64bpm with PACs. No STEMI present. Radiology Impression Discussion of test interpretation with radiology: I have reviewed the radiologist's reading. Radiologist Impression: Findings: The lungs are clear. Heart size is normal. No acute fracture. IMPRESSION: 1. No acute findings. This document has been electronically signed by: Kiran Steele MD on 06/06/2024 15:24:31 Dictated By: Kiran Steele MD Signed By: <Electronically signed by Kiran Steele MD in OV> 06/06/24 1525 Discharge Plan Discharge Clinical Impression: COVID-19 Patient Disposition: Left W/O Completing Treatment Prescriptions: No Action amlodipine 10 mg tablet 10 mg PO DAILY 90 Days Qty: 90 1RF azithromycin 250 mg tablet See Rx Instructions PO .COMPLEX Qty: 6 0RF Rx Instructions: For 250 mg dose pack: take 500 mg today (day 1), then 250 mg for 4 days (days 2-5) PO amoxicillin-pot clavulanate 875-125 mg tablet 1 tab PO Q12H 10 Days Qty: 20 0RF lisinopril 10 mg tablet 10 mg PO DAILY Qty: 90 1RF albuterol sulfate 90 mcg/actuation HFA aerosol inhaler 1 - 2 puff inhalation QID PRN (Reason: Shortness Of Breath Or Wheezing) Qty: 6.7 0RF Discharge Date/Time: 06/06/24 15:16
[2024-06-06 12:22] VITALS: BP 151/97; PULSE 70; RESP 20; O2SAT 98
--- NOTE | 2024-06-06 12:49 | ECG_ITS ---
Test Reason : CP, SOB Blood Pressure : */* mmHG Vent. Rate : 64 BPM Atrial Rate : 64 BPM P-R Int : 200 ms QRS Dur : 114 ms QT Int : 408 ms P-R-T Axes : 62 -56 90 degrees QTcB Int : 420 ms Sinus rhythm with Premature atrial complexes Left anterior fascicular block Left ventricular hypertrophy with repolarization abnormality ( R in aVL , Taj product ) Abnormal ECG When compared with ECG of 09-Nov-2018 13:44, Premature atrial complexes are now Present Referred By: Keyona Malone Electronically Signed By: JAGDISH LUNA
[2024-06-06 12:50] LABS: Alanine Aminotransferase 19 U/L (0-40); Albumin Level 3.8 g/dL (3.5-5.0); Alkaline Phosphatase 84 U/L (39-117); Aspartate Amino Transferase 21 U/L (5-37); Bilirubin Direct 0.1 mg/dL (0.0-0.5); Bilirubin Total 0.3 mg/dL (0.0-1.0); Total Protein 7.8 g/dL (6.5-8.0)
[2024-06-06 12:59] LABS: Troponin-I High Sensitivity < 2.7 ng/L (<3.5-35.0)
[2024-06-06 13:21] LABS: B Type Natriuretic Peptide 36 pg/mL (<100)
== END 2024-06-06 15:16 | disposition left against medical advice (07) ==
PROVIDERS: Physician Assistant Medical; Emergency Provider Emergency Medicine; PCP Nurse Practitioner Family
DX: U07.1 COVID-19 (principal); R06.02 Shortness of breath
CPT/HCPCS: 0241U; 71046; 80048; 80076; 83880; 84484; 85025; 93005; 99283

== ENCOUNTER → 2024-06-06 10:07 | Outpatient (BNV) | payer MEDICARE, MEDICAID, SELFPAY | PROVIDERS: Emergency Provider Emergency Medicine; PCP Nurse Practitioner Family; Visit Provider Nuclear Medicine | DX: R06.02 Shortness of breath (principal) | CPT/HCPCS: 71046 ==

== ENCOUNTER → 2024-06-06 12:49 | Outpatient (BNV) | payer MEDICARE, MEDICAID, SELFPAY | PROVIDERS: Emergency Provider Emergency Medicine; PCP Nurse Practitioner Family; Visit Provider Internal Medicine | DX: I49.1 Atrial premature depolarization (principal); I44.4 Left anterior fascicular block; I51.7 Cardiomegaly | CPT/HCPCS: 93010 ==

== ENCOUNTER 2024-06-20 09:01 | Outpatient (AMB) | payer MEDICARE, MEDICAID, SELFPAY ==
--- NOTE | 2024-06-20 09:13 | MHC.OFFWIV ---
Intake Vital Signs 06/20/24 09:16 Height 6 ft 1 in Weight 385 lb BMI 50.8 BP 120/60 Blood Pressure Location Lt brachial Position Sitting Respiration 18 Pulse 76 Pulse Source Pulse Oximeter Temp 98.0 F Temp Source Oral Pulse Oximetry (%) 97 Oxygen Delivery Method Room Air Intake Visit Reasons: EP Pneumonia not better, sob, lung pain Intake Note: Pt is here today c/o SOB, coughing Patient Tobacco Use Status: Former Tobacco user Allergies codeine [CODEINE] Allergy (Severe, Verified 06/20/24 09:21) ANAPHYLAXIS, hives adhesive tape Adverse Reaction (Mild, Verified 06/20/24 09:21) Irritable HPI EP Pneumonia not better, sob, lung pain HPI Details Patient with recent COVID infection and pneumonia treated with azithromycin and also Augmentin Presents with right-sided chest wall pain No fevers or chills Vitals appear okay today and oxygen saturation 97 98% Pain with deep inspiration and cough PFSH Medical History Physical exam Screening PSA (prostate specific antigen) Upset stomach Pre-op examination Encounter for routine adult physical exam with abnormal findings Screening for colon cancer Medicare annual wellness visit, subsequent COVID-19 vaccine series completed Agoraphobia Anxiety Impaired fasting glucose GERD (gastroesophageal reflux disease) Depression TIA (transient ischemic attack) Sleep apnea Memory deficit Morbid obesity Toenail fungus Rash Hypertension, essential Gait difficulty Surgical History H/O colonoscopy Hx of arthroscopic knee surgery Hx of appendectomy Hx of cholecystectomy History of esophagogastroduodenoscopy (EGD) Family History Sister Dementia Other Substance use disorder Social History Housing: House Are you a primary administrator health care facility to a significant other at home: No Do you presently have visiting nurse or other home services: No Alcohol intake: never Patient Tobacco Use Status: Former Tobacco user Tobacco use type: Cigarette e-Cigarette/Vaping Use: Never Used Second Hand Smoke Exposure: No Substance Use Type: Marijuana service: No Current occupational status: other Cognitive needs: No Hearing needs: No Vision needs: Yes Review of Systems Const Details: See HPI Denies chills, Denies fatigue, Denies fever(s), Denies headache(s) and Denies weakness ENT Denies dizziness and Denies headache(s) Card Denies chest pain, Denies lightheadedness, Denies dyspnea and Denies other (Palpitations) Resp Denies cough, Denies dyspnea, Denies wheezing and Denies other ( shortness of breath) Musc Denies numbness and Denies tingling Neuro Denies dizziness, Denies headache(s), Denies numbness, Denies tingling, Denies paresthesias and Denies weakness Psych Denies anxiety and Denies depression Endo Denies fatigue Aller/Immun Denies wheezing Physical Exam Vital Signs: Last Vital Signs Temp 98.0 F 06/20/24 09:16 Pulse 76 06/20/24 09:16 Resp 18 06/20/24 09:16 BP 120/60 06/20/24 09:16 Pulse Ox 97 06/20/24 09:16 Oxygen Delivery Method Room Air 06/20/24 09:16 BMI result Body Mass Index 50.8 Const General: no acute distress and well developed Nutritional Appearance: well nourished Orientation/consciousness: patient oriented x3 HEENT Head: Yes normocephalic and Yes atraumatic Eyes General: appearance normal, both eyes and all related structures Pupils: Equal, round and reactive pupils present EOM: EOMs intact bilaterally Chest Other: Right-sided anterior chest discomfort with deep inspiration. Worsens with palpation Resp Effort & Inspection: normal respiratory effort Auscultation: clear to auscultation bilaterally Cardio Rate: regular rate Rhythm: regular rhythm Heart sounds: S1 normal heart sound present, S2 normal heart sound present, no gallops, no murmurs and no rubs Neuro General: patient oriented x3 and gait normal Cranial nerves: Yes Equal, round and reactive pupils present Psych Affect: normal affect Assessment & Plan Assessment & Plan (1) Chest wall pain: Code(s): R07.89 - Other chest pain Plan: Right-sided and reproducible chest wall pain after recent pneumonia with severe coughing Patient has pain with deep inspiration Lungs are clear to auscultation and recent chest x-ray was clear Likely intercostal muscle strain secondary to recent pneumonia and coughing Will give him a script for meloxicam. Had also discussed tramadol but patient has allergy to codeine. Short course of meloxicam that he can take for pain Will give him a short course of prednisone as well to decrease inflammation after recent pneumonia Use ice/heat on painful area of chest Use pillow against chest wall when coughing or sneezing Call or return to office if not improving or worsening Medications: New prednisone 40 mg (2 x 20 mg) PO DAILY 8 tabs 0RF 4 days meloxicam 15 mg PO DAILY 30 tabs 2RF 30 days Coding Level of Care Code Est Pt Level 3 (15103) Diagnoses Chest wall pain R07.89
[2024-06-20 09:16] VITALS: BP 120/60; PULSE 76; RESP 18; TEMP 36.7; O2SAT 97; BMI 50.8
== END 2024-06-20 09:48 | disposition home or self-care (01) ==
PROVIDERS: PCP Nurse Practitioner Family; Visit Provider Family Medicine
DX: R07.89 Other chest pain (principal)

== ENCOUNTER → 2024-06-20 09:01 | Outpatient (BNVA) | payer MEDICARE, MEDICAID, SELFPAY | PROVIDERS: PCP Nurse Practitioner Family | DX: R07.89 Other chest pain (principal) | CPT/HCPCS: 99212 ==

== ENCOUNTER 2024-08-03 08:04 | Outpatient (AMB) | payer MEDICARE, MEDICAID, SELFPAY ==
--- NOTE | 2024-08-03 08:14 | MHC.OFFWIV ---
Intake Vital Signs 08/03/24 08:16 Weight 385 lb BP 130/80 Blood Pressure Location Rt brachial Position Sitting Pulse 66 Pulse Source Pulse Oximeter Temp 98.1 F Temp Source Oral Pulse Oximetry (%) 98 Oxygen Delivery Method Room Air Intake Visit Reasons: EP SOB, fever, sweat, Diff breathing, pain Intake Note: Patient here for SOB, fever, sweats and lung pain that has been since saturday afternoon. Patient Tobacco Use Status: Former Tobacco user Allergies codeine [CODEINE] Allergy (Severe, Verified 08/03/24 08:15) ANAPHYLAXIS, hives adhesive tape Adverse Reaction (Mild, Verified 08/03/24 08:15) Irritable Do you need a note to return to daycare/school/sports/work: No HPI HPI Comments History of Present Illness Details History Physical Exam General: Cooperative, healthy appearing, comfortable and no acute distress Orientation/consciousness: Patient oriented x3 Limitations: No limitations Head: Normal to inspection Ears: Hearing grossly normal bilaterally, external ears normal and TM's normal bilaterally Nose: Normal external nose present, Normal nares present and No nasal discharge present Face and sinus: Normal facial exam and Yes sinuses nontender Mouth: Normal oral and palatal mucosa present and moist mucous membranes Throat: No tonsils present, Yes uvula midline. Posterior oropharynx erythema Eyes: Appearance normal, both eyes and all related structures Neck: Normal visual inspection Respiratory: Clear to auscultation bilaterally. Normal respiratory effort, able to speak in complete sentences, Actively coughing, no respiratory distress, not tachypneic, no tripod positioning and no use of accessory muscles Cardiovascular: Regular rate and rhythm. Normal S1 and S2 Skin: No rashes or lesions noted Neuro: Patient oriented x3 Extremities: Normal to inspection and Yes no clubbing, cyanosis or edema [facility] Medical History Physical exam Screening PSA (prostate specific antigen) Upset stomach Pre-op examination Encounter for routine adult physical exam with abnormal findings Screening for colon cancer Medicare annual wellness visit, subsequent COVID-19 vaccine series completed Agoraphobia Anxiety Impaired fasting glucose GERD (gastroesophageal reflux disease) Depression TIA (transient ischemic attack) Sleep apnea Memory deficit Morbid obesity Toenail fungus Rash Hypertension, essential Gait difficulty Surgical History H/O colonoscopy Hx of arthroscopic knee surgery Hx of appendectomy Hx of cholecystectomy History of esophagogastroduodenoscopy (EGD) Family History Sister Dementia Other Substance use disorder Social History Housing: House Are you a primary career placement services counselor to a significant other at home: No Do you presently have visiting nurse or other home services: No Alcohol intake: never Patient Tobacco Use Status: Former Tobacco user Tobacco use type: Cigarette e-Cigarette/Vaping Use: Never Used Second Hand Smoke Exposure: No Substance Use Type: Marijuana service: No Current occupational status: other Cognitive needs: No Hearing needs: No Vision needs: Yes Review of Systems Const All systems reviewed & are unremarkable except as noted in HPI and below Physical Exam Vital Signs: Last Vital Signs Temp 98.1 F 08/03/24 08:16 Pulse 66 08/03/24 08:16 BP 130/80 08/03/24 08:16 Pulse Ox 98 08/03/24 08:16 Oxygen Delivery Method Room Air 08/03/24 08:16 Assessment & Plan Assessment & Plan (1) Chest pain: Code(s): R07.9 - Chest pain, unspecified Qualifiers: Chest pain type: chest pain on breathing Qualified Code(s): R07.1 - Chest pain on breathing Plan: as below (2) Lower respiratory infection (e.g., bronchitis, pneumonia, pneumonitis, pulmonitis): Code(s): J22 - Unspecified acute lower respiratory infection Plan: VSS, pt well appearing and PE unremarkable. An EKG showed Sinus rhythm with first-degree AV block and UT interval at 210 milliseconds. Has a known left anterior fascicular block. I messaged PCP to advise of the new first-degree AV block. I addressed the patient's persistent respiratory symptoms following COVID-19 with measures aimed at symptom management and diagnostic evaluation. A chest x-ray was ordered to rule out complications such as pneumonia. A Solu-Medrol Dosepak was prescribed to reduce systemic inflammation and alleviate respiratory distress, with specified dosing to avoid sleep disruption. Tessalon Perles were advised to manage nighttime cough, and Kendra D was recommended for decongestion. The inhaler prescription was renewed to manage bronchoconstriction. My interpretation of the chest x-ray is no acute pulmonary issue. Pending final radiology read. Patient was informed and verbally consented to the use of an ambient scribe for clinic note documentation during this visit Orders: Orders SARS-CoV2/FLU/RSV Today R09.89 - Other specified symptoms and signs involving the circulatory and respiratory systems XR chest 2V Today R05.9 - Cough, unspecified AMB EKG-In Office Today R07.9 - Chest pain, unspecified Medications: New benzonatate 200 mg PO BEDTIME PRN 10 caps 0RF cough methylprednisolone orally per package directions; PO PER PKG DIR for 6 days 21 ea 0RF fexofenadine-pseudoephedrine 180-240 mg ER (Kendra-D 24 Hour) 1 tab PO QAM PRN 10 tabs 0RF sinus symptoms albuterol sulfate 90 mcg/actuation 2 puffs inhalation Q6H PRN 8.5 grams 0RF shortness of breath or wheezing or cough Discontinued prednisone Discontinued Reason: Doctor's Order 40 mg (2 x 20 mg) PO DAILY 4 days 8 tabs 0RF Coding Level of Care Code Est Pt Level 4 (44794) Diagnoses Chest pain on breathing R07.1 Chest pain type: chest pain on breathing Lower respiratory infection (e.g., bronchitis, pneumonia, pneumonitis, pulmonitis) J22
[2024-08-03 08:16] VITALS: BP 130/80; PULSE 66; TEMP 36.7; O2SAT 98
== END 2024-08-03 09:37 | disposition home or self-care (01) ==
PROVIDERS: PCP Nurse Practitioner Family; Visit Provider Physician Assistant
DX: R07.1 Chest pain on breathing (principal); J22 Unspecified acute lower respiratory infection

== ENCOUNTER 2024-08-03 08:04 | Outpatient (REF) | payer MEDICARE, MEDICAID, SELFPAY ==
--- NOTE | ~2024-08-03 | XR_ITS ---
EXAMINATION: XR CHEST 2 VIEWS HISTORY: R05.9 - Cough, unspecified COMPARISON: Comparison is made with the prior examination dated 06/06/2024. FINDINGS: PA and lateral views of the chest are submitted. The lungs are expanded and clear. There is no pleural effusion, pneumothorax, or pulmonary vascular congestion. The heart is normal in size. The aorta is tortuous. There is degenerative disc disease of the spine. XR/XR chest 2V IMPRESSION: No acute cardiopulmonary abnormality. Electronically signed by: Srinivasan Huerta MD 08/03/2024 09:46 AM EDT
[2024-08-03 11:50] LABS: Influenza A PCR NEGATIVE (Negative); Influenza B PCR NEGATIVE (Negative); Resp Syncy Virus RNA Qual PCR NEGATIVE (Negative); SARS COV2 PCR INHOUSE NEGATIVE (Negative)
== END 2024-08-03 08:05 | disposition home or self-care (01) ==
LOC: HO.LAB 08:04
PROVIDERS: PCP Nurse Practitioner Family; Visit Provider Physician Assistant
DX: Z00.00 Encounter for general adult medical examination without abnormal findings (principal); R07.1 Chest pain on breathing; J22 Unspecified acute lower respiratory infection; R05.9 Cough, unspecified; R09.89 Other specified symptoms and signs involving the circulatory and respiratory systems
CPT/HCPCS: 0241U; 71046; 93005; 99212

== ENCOUNTER → 2024-08-03 09:26 | Outpatient (BNV) | payer MEDICARE, MEDICAID, SELFPAY | PROVIDERS: PCP Nurse Practitioner Family; Visit Provider Radiology Diagnostic Radiology | DX: R05.9 Cough, unspecified (principal) | CPT/HCPCS: 71046 ==

== ENCOUNTER 2024-08-07 14:42 | Outpatient (AMB) | payer MEDICARE, MEDICAID, SELFPAY ==
--- NOTE | 2024-08-07 14:53 | A.OFFVIS_ITS ---
Vital Signs 08/07/24 15:08 Height 6 ft 1 in Weight 403 lb 7.135 oz BMI 53.2 BP 139/57 L Blood Pressure Location Rt brachial Position Sitting Intake Visit Reasons: pre colonoscopy Intake Note: Patient in office today in pre colonoscopy consult. CC: Patient reports that nothing has changed much . 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 Ink Technician Required: No Accompanied by: Self / Same As Patient Allergies codeine [CODEINE] Allergy (Severe, Verified 08/07/24 15:20) ANAPHYLAXIS, hives adhesive tape Adverse Reaction (Mild, Verified 08/07/24 15:20) Irritable dust Allergy (Unknown, Uncoded 08/07/24 15:21) swelling HPI HPI pre colonoscopy: Details: Assessment & Plan (1) Tubulovillous adenoma of colon: Code(s): D12.6 - Benign neoplasm of colon, unspecified Category: Medical (2) Positive colorectal cancer screening using Cologuard test: Code(s): R19.5 - Other fecal abnormalities Category: Medical Plan HE is agreeable to an 8 mos follow up. The procedure was well tolerated. The results were explained and the patient is agreeable to the follow-up interval as stated. The bowel pattern has returned to normal. Education was provided to tell any 1st degree relatives about their findings to be sure that they are screened by age 45. Educated that they will be put on a recall list when it is time for their repeat scope but should they move out of state or away from the hospital they will need to remember along with their primary to repeat the procedure in a timely fashion to avoid any adverse complications. We will bring him back in 8 months to make sure he gets on the schedule in a timely fashion to have the repeat scope. Laboratory Tests 06/06/24 10:38 WBC 6.0 Hgb 14.4 Hct 42.0 Plt Count 218 Estimated GFR > 60 Total Bilirubin 0.3 AST 21 ALT 19 Alkaline Phosphatase 84 TODAY'S VISIT This patient has been lost to follow-up since 01/2023 He has been VERY SICK!! He had double pneumonia, then got COVID, then got post COVID pneumonia. There are no prior problems with anesthesia or sedation. He has asthma and NUBIA and he denies cardiac problems. He is morbidly obese with a BMI of 50. No ID problems. There is no known FHX of crc or polyps. [facility] Medical History (Updated 08/11/24 @ 15:56 by KATE Angeles) Pre-op examination Rash Blurring of vision Difficulty sleeping Skin infection, bacterial Right upper quadrant pain Chest discomfort Lower respiratory infection (e.g., bronchitis, pneumonia, pneumonitis, pulmonitis) Wheezing on auscultation Chest wall pain Chest pain Pneumonia COVID-19 Physical exam Screening PSA (prostate specific antigen) Upset stomach Encounter for routine adult physical exam with abnormal findings Screening for colon cancer Medicare annual wellness visit, subsequent COVID-19 vaccine series completed Agoraphobia Anxiety Impaired fasting glucose GERD (gastroesophageal reflux disease) Depression TIA (transient ischemic attack) Sleep apnea Memory deficit Morbid obesity Toenail fungus Hypertension, essential Gait difficulty Surgical History H/O colonoscopy Hx of arthroscopic knee surgery Hx of appendectomy Hx of cholecystectomy History of esophagogastroduodenoscopy (EGD) Family History Sister Dementia Other Substance use disorder Social History Housing: House Are you a primary primary care sales representative to a significant other at home: No Do you presently have visiting nurse or other home services: No Alcohol intake: never Patient Tobacco Use Status: Former Tobacco user Tobacco use type: Cigarette e-Cigarette/Vaping Use: Never Used Second Hand Smoke Exposure: No Substance Use Type: Marijuana service: No Current occupational status: other Cognitive needs: No Hearing needs: No Vision needs: Yes Review of Systems ENT Reports Normal hearing present Neuro Reports Normal hearing present and Denies Abnormal speech present Physical Exam Vital Signs: Last Vital Signs BP 139/57 L 08/07/24 15:08 BMI result Body Mass Index 53.2 Const General: cooperative, no acute distress, well developed and well groomed Nutritional Appearance: well nourished and obese Orientation/consciousness: oriented to person, oriented to place and oriented to time Limitations: No language barrier HEENT Head: Yes normocephalic and Yes atraumatic Eyes General: appearance normal, both eyes and all related structures Pupils: Equal, round and reactive pupils present Neck Neck: Yes normal visual inspection and Yes no lymphadenopathy Thyroid: Thyroid normal Resp Effort & Inspection: normal respiratory effort and able to speak in complete sentences Auscultation: wheezes (coarse sounds RLL) Cardio Rate: regular rate Rhythm: regular rhythm Heart sounds: Normal, physiologic split S2 sound present Peripheral pulses: radial pulses present and posterior tibial pulses present GI Inspection: No distended, Yes Abdominal panniculus present and Yes obesity Palpation (GI): Soft to palpation, nontender, no guarding, not rigid and No hepatosplenomegaly present Percussion: Yes normal to percussion Auscultation: normal bowel sounds Rectal Exam - Male: Yes deferred Skin General skin exam: no rashes or lesions noted, turgor normal, skin not dry, no jaundice, No spider nevi and no striae Rashes: no rashes Nails: normal Neuro General: oriented to person, oriented to place and oriented to time Cranial nerves: Yes Equal, round and reactive pupils present and Yes Normal hearing present Speech: No Abnormal speech present Extrem General: Yes normal to inspection, No clubbing, No cyanosis and No edema Psych Appearance: grossly normal and well kempt Mental Status: mental status grossly normal Speech and movement: Normal speech and movement present Affect: normal affect Attitude: cooperative Thought process: Normal thought process present and not confabulating Thought content: Normal thought content present Insight: Good insight present (Psych) Judgement: Good judgement present (Psych) Assessment & Plan Assessment & Plan (1) Pre-op examination: Code(s): Z01.818 - Encounter for other preprocedural examination Category: Medical (2) Tubulovillous adenoma of colon: Code(s): D12.6 - Benign neoplasm of colon, unspecified Category: Medical (3) Positive colorectal cancer screening using Cologuard test: Code(s): R19.5 - Other fecal abnormalities Category: Medical (4) Morbid obesity: Code(s): E66.01 - Morbid (severe) obesity due to excess calories Category: Medical (5) Left anterior fascicular block (LAFB): Code(s): I44.4 - Left anterior fascicular block Category: Medical (6) Obstructive sleep apnea on CPAP: Code(s): G47.33 - Obstructive sleep apnea (adult) (pediatric); Z99.89 - Dependence on other enabling machines and devices Category: Medical (7) Memory deficit: Code(s): R41.3 - Other amnesia Category: Medical Plan This patient has been lost to follow-up since 01/2023 He has been VERY SICK!! He had double pneumonia, then got COVID, then got post COVID pneumonia. There are no prior problems with anesthesia or sedation. He has asthma and NUBIA and he denies cardiac problems. He is morbidly obese with a BMI of 50. No ID problems. There is no known FHX of crc or polyps Orders: Orders Colonoscopy - GI Use Only 08/07/24 D12.6 - Benign neoplasm of colon, unspecified Medications: New peg 3350-electrolytes 236-22.74-6.74 -5.86 gram (Golytely) until fecal effluent is clear; do not exceed a total volume of 2,000 mL 240 mL PO Q10M 4,000 mL 0RF 1 day Z12.11 - Encounter for screening for malignant neoplasm of colon bisacodyl (Dulcolax (bisacodyl)) 10 mg (2 x 5 mg) PO BEDTIME 4 tabs 0RF 2 days Coding Level of Care Code Est Pt Level 4 (84288) Diagnoses Pre-op examination Z01.818 Tubulovillous adenoma of colon D12.6 Positive colorectal cancer screening using Cologuard test R19.5 Morbid obesity E66.01 Left anterior fascicular block (LAFB) I44.4 Obstructive sleep apnea on CPAP G47.33; Z99.89 Memory deficit R41.3
[2024-08-07 15:08] VITALS: BP 139/57; BMI 53.2
--- OUTSIDE RECORDS SUMMARY | 2024-08-07 16:14 | XMS_ITS | Patient Health Record ---
Author Organization [facility] Address [address] [place] [address] Care Team Providers Care Bean Snapper Name Role Phone Rufino JUNE, [facility] Primary Care Provider Angel Guzman Jr Unavailable [phone] Allergies Allergen (clinical drug ingredient) Drug/Non Drug Allergy documented on EMR Reaction Allergy Type Onset Date Status codeine codeine (uncoded) Unknown Allergy Ac tive Reason For Referral No Information Medications Medication SIG (Take, Route, Frequency, Duration) Notes Start Date End Date Status Lisinopril 5 MG TAKE 1 TABLET BY KRZYSZTOF TH DAILY Oral for 90 Active amLODIPine Besylate 10 MG Oral for 90 Active MiraLax (colon prep) 17 GM/SCOOP mixed with Gatorade or Crystal Light Orally begin at 5:00 p.m. the day before the procedure for 1 day 08/03/2021 Active Immunizations Vaccine Route Administration Date Status Comme nts Flu vaccine no Preserv 3 and > Unknown 02/21/2016 Admin istered Flu vaccine no Preserv 3 and > Unknown 02/28/2017 Admin istered Influenza Unknown 01/04/2021 Administered Social History Alcohol Screen Question Answer Notes Did you have a drink containing alcohol in the p ast year? No Points 0 Interpretation Negative Section Notes: He does use cannabis Problems Problem Type SNOMED Code ICD Code Onset Dates Problem Status W/U Status Risk Notes Problem 615303740 Colon cancer screening (Z12.11) Active confirmed Problem 586130610 Gastro-esophagea l reflux disease without esophagitis (K21.9) Active confirmed Problem 42962478 Hypertension (I10) Active confirmed Problem 149339698 Gastroesophageal reflux disease with esophagitis without hemorrhage (K21.00) Active confirmed Plan Of Treatment Future Test Test Name Order Date COLONOSCOPY 02/28/2011 UPPER GI ENDOSCOPY 06/06/2016 COLONOSCOPY 08/03/2021 Insurance Providers Payer Name Payer Address Payer Phone Subscriber Number Group Number Insured Name Patient Relationship to Insured Coverage Start Date Coverage End Date MEDICARE OF [place] [address] [place] [address] [id number] BELKIS FOOTE Self - patient is the insured MEDICAID OF [facility] [address] [place] [address] [id number] BELKIS FOOTE Self - patient is the insured Medical (General) History Medical History History ICD Code hypertension type II diabetes depression TIA 2003 NUBIA/CPAP Gastroesophageal reflux disease, EGD/17, mild distal esophagitis Surgical History Surgery Date(Month/Year) cholecystectomy appendectomy arthroscopic knee surgery
== END 2024-08-07 16:15 | disposition home or self-care (01) ==
LOC: HO.HGI 14:42
PROVIDERS: PCP Nurse Practitioner Family; Visit Provider Nurse Practitioner
DX: Z01.818 Encounter for other preprocedural examination (principal); Z12.11 Encounter for screening for malignant neoplasm of colon; R19.5 Other fecal abnormalities; Z86.0101 Personal history of adenomatous and serrated colon polyps
CPT/HCPCS: 99024

== ENCOUNTER → 2024-08-07 14:42 | Outpatient (BNVA) | payer MEDICARE, MEDICAID, SELFPAY | PROVIDERS: PCP Nurse Practitioner Family; Visit Provider Nurse Practitioner | DX: Z01.818 Encounter for other preprocedural examination (principal); D12.6 Benign neoplasm of colon, unspecified; R19.5 Other fecal abnormalities; R41.3 Other amnesia; I44.4 Left anterior fascicular block; E66.01 Morbid (severe) obesity due to excess calories; G47.33 Obstructive sleep apnea (adult) (pediatric); Z99.89 Dependence on other enabling machines and devices; Z68.43 Body mass index [BMI] 50.0-59.9, adult | CPT/HCPCS: 99212 ==

== ENCOUNTER 2024-08-10 08:01 | Outpatient (AMB) | payer MEDICARE, MEDICAID, SELFPAY ==
--- NOTE | 2024-08-10 08:06 | MHC.OFFWIV ---
Intake Vital Signs 08/10/24 08:10 BP 124/86 Blood Pressure Location Rt brachial Position Sitting Pulse 71 Pulse Source Pulse Oximeter Temp 98.5 F Temp Source Oral Pulse Oximetry (%) 96 Oxygen Delivery Method Room Air Intake Visit Reasons: EP cough, congestion, fever Intake Note: Patient here for SOB, cough that has been going on r Patient Tobacco Use Status: Former Tobacco user Allergies codeine [CODEINE] Allergy (Severe, Verified 08/07/24 15:20) ANAPHYLAXIS, hives adhesive tape Adverse Reaction (Mild, Verified 08/07/24 15:20) Irritable dust Allergy (Unknown, Uncoded 08/07/24 15:21) swelling HPI HPI Comments History of Present Illness Details 63 y/o male patient who presents to the walk in clinic with c/o Persistent cough since last Saturday. He was seen Saturday at a walk in clinic for similar concern and was treated with Azithromycin. Pt reports no symptom improvement on Zpack or Prednisone. [facility] Medical History (Updated 08/10/24 @ 08:30 by Kristi Oliveira NP) Wheezing on auscultation Chest wall pain Chest pain Pneumonia COVID-19 Physical exam Screening PSA (prostate specific antigen) Upset stomach Pre-op examination Encounter for routine adult physical exam with abnormal findings Screening for colon cancer Medicare annual wellness visit, subsequent COVID-19 vaccine series completed Agoraphobia Anxiety Impaired fasting glucose GERD (gastroesophageal reflux disease) Depression TIA (transient ischemic attack) Sleep apnea Memory deficit Morbid obesity Toenail fungus Rash Hypertension, essential Gait difficulty Surgical History H/O colonoscopy Hx of arthroscopic knee surgery Hx of appendectomy Hx of cholecystectomy History of esophagogastroduodenoscopy (EGD) Family History Sister Dementia Other Substance use disorder Social History Housing: House Are you a primary date night caregiver to a significant other at home: No Do you presently have visiting nurse or other home services: No Alcohol intake: never Patient Tobacco Use Status: Former Tobacco user Tobacco use type: Cigarette e-Cigarette/Vaping Use: Never Used Second Hand Smoke Exposure: No Substance Use Type: Marijuana service: No Current occupational status: other Cognitive needs: No Hearing needs: No Vision needs: Yes Review of Systems Const All systems reviewed & are unremarkable except as noted in HPI and below Physical Exam Vital Signs: Last Vital Signs Temp 98.5 F 08/10/24 08:10 Pulse 71 08/10/24 08:10 BP 124/86 08/10/24 08:10 Pulse Ox 96 08/10/24 08:10 Oxygen Delivery Method Room Air 08/10/24 08:10 Const General: no acute distress Nutritional Appearance: obese morbidly obese Orientation/consciousness: patient oriented x3 Resp Effort & Inspection: normal respiratory effort Auscultation: no crackles, no rales, rhonchi and wheezes inspiratory wheezes Cardio Rate: regular rate Heart sounds: S1 normal heart sound present and S2 normal heart sound present Neuro General: patient oriented x3, gait normal and moves all extremities Psych Speech and movement: Normal speech and movement present Office Procedures Nebulizer Treatment Nebulizer Treatment [id number] RX initial, or Nebulizer Subsequent Treatment Office Meds ipratropium 0.5 mg-albuterol 3 mg (2.5 mg base)/3 mL nebulization soln Performing Provider: Kristi Oliveira NP Performing Location: [facility] Administered by: Kristi Oliveira NP on 08/10/24 08:52 Dose Route Admin Location Dispensed Lot Number Expiration Date NDC Inspector Of Dredging 3 mL inhalation 3 mL 07/03/25 45311-660-02 AHP Assessment & Plan Assessment & Plan (1) Cough: Code(s): R05.9 - Cough, unspecified Qualifiers: Cough type: subacute Qualified Code(s): R05.2 - Subacute cough Plan: Ordered Albuterol Neb in the office Ordered Augmentin for 10 days. (2) Wheezing on auscultation: Code(s): R06.2 - Wheezing Plan: Ordered Albuterol Neb in the office Ordered Augmentin for 10 days. Orders: Orders AMB Nebulizer Treatment Today R05.2 - Subacute cough, R06.2 - Wheezing Medications: New ipratropium-albuterol 0.5 mg-3 mg(2.5 mg base)/3 mL 3 mL inhalation ONCE 3 mL 0RF R05.2 - Subacute cough, R06.2 - Wheezing amoxicillin-pot clavulanate 875-125 mg 1 tab PO BID 10 days 20 tabs 0RF R05.2 - Subacute cough, R06.2 - Wheezing Discontinued azithromycin Discontinued Reason: Patient Completed Course For 250 mg dose pack: take 500 mg today (day 1), then 250 mg for 4 days (days 2-5) PO 6 tabs 0RF Coding Level of Care Code Est Pt Level 4 (46404) Diagnoses Subacute cough R05.2 Cough type: subacute Wheezing on auscultation R06.2 CPT Codes Nebulizer Treatment - Nebulizer Treatment, initial or subsequent: [id number] RX initial, or Nebulizer Subsequent Treatment ([id number]) Time Spent (min) 20
--- OUTSIDE RECORDS SUMMARY | 2024-08-10 08:08 | XMS_ITS | Patient Health Record ---
Author Organization [facility] Address [address] [place] [address] Care Team Providers Care Test Center Manager Name Role Phone Rufino JUNE, [facility] Primary Care Provider Angel Guzman Jr Unavailable Allergies Allergen (clinical drug ingredient) Drug/Non Drug [...] Problem Status W/U Status Risk Notes Problem 231850796 Colon cancer screening (Z12.11) Active confirmed Problem 430038625 Gastro-esophagea l reflux disease without esophagitis (K21.9) Active confirmed Problem 05537290 Hypertension (I10) Active confirmed Problem 545145278 Gastroesophageal reflux disease with esophagitis without hemorrhage (K21.00) Active confirmed Plan Of Treatment Future Test Test Name Order Date COLONOSCOPY 02/28/2011 UPPER GI ENDOSCOPY 06/06/2016 COLONOSCOPY 08/03/2021 Insurance Providers Payer Name Payer Address Payer Phone Subscriber Number Group Number Insured Name Patient Relationship to Insured Coverage Start Date Coverage End Date MEDICARE OF [place] [address] [place] [address] [id number] BELKIS FOOTE Self - patient is the insured MEDICAID OF [facility] [address] [place] [address] [id number] BELKIS FOOTE Self - patient is the insured Medical (General) History Medical History History ICD Code hypertension type II diabetes depression TIA 2003 NUBIA/CPAP Gastroesophageal reflux disease, EGD/17, mild distal esophagitis Surgical History Surgery Date(Month/Year) cholecystectomy appendectomy arthroscopic knee surgery
[2024-08-10 08:10] VITALS: BP 124/86; PULSE 71; TEMP 36.9; O2SAT 96
== END 2024-08-10 08:48 | disposition home or self-care (01) ==
PROVIDERS: PCP Nurse Practitioner Family; Visit Provider Nurse Practitioner Family
DX: R06.2 Wheezing (principal); R05.2 Subacute cough

== ENCOUNTER → 2024-08-10 08:01 | Outpatient (BNVA) | payer MEDICARE, MEDICAID, SELFPAY | PROVIDERS: PCP Nurse Practitioner Family; Visit Provider Nurse Practitioner Family | DX: R05.2 Subacute cough (principal); R06.2 Wheezing | CPT/HCPCS: 94640; 99212 ==

== ENCOUNTER 2024-08-12 15:21 | Outpatient (AMB) | payer MEDICARE, MEDICAID, SELFPAY ==
--- NOTE | 2024-08-12 15:24 | MHC.OFFWIV ---
Intake Vital Signs 08/12/24 15:25 Height 6 ft 1 in BP 140/94 H Blood Pressure Location Lt brachial Position Sitting Pulse 95 Pulse Source Pulse Oximeter Temp 97.4 F Temp Source Oral Pulse Oximetry (%) 100 Oxygen Delivery Method Room Air Intake Visit Reasons: EP-SOB Patient Tobacco Use Status: Former Tobacco user Allergies codeine [CODEINE] Allergy (Severe, Verified 08/07/24 15:20) ANAPHYLAXIS, hives adhesive tape Adverse Reaction (Mild, Verified 08/07/24 15:20) Irritable dust Allergy (Unknown, Uncoded 08/07/24 15:21) swelling Do you need a note to return to daycare/school/sports/work: No HPI HPI Comments History of Present Illness Details History - The patient is a 63-year-old male presenting with a persistent cough. The cough started during a visit on August 03, initially involving fever, sweats, and lung pain . A chest x-ray performed on August 03 did not show any acute cardiopulmonary abnormalities. Despite treatment with a Z-Austin and a solumedrol taper, symptoms persisted leading to a follow-up visit on August 10. The patient reported no symptom improvement and described intense pain and difficulty breathing on exertion, given a nebulizer treatment in the office on that day and prescribed Augmentin. The patient denies coughing up blood or fevers but reports green sputum. He experiences consistent exhaustion and has a stress test at [facility] in 2 days. Physical Exam General: Cooperative, healthy appearing, comfortable and no acute distress Orientation/consciousness: Patient oriented x3 Limitations: No limitations Head: Normal to inspection Ears: Hearing grossly normal bilaterally, external ears normal and TM's normal bilaterally Nose: Normal external nose present, Normal nares present and No nasal discharge present Face and sinus: Normal facial exam and Yes sinuses nontender Mouth: Normal oral and palatal mucosa present and moist mucous membranes Throat: Yes tonsils normal, Yes uvula midline. Posterior oropharynx erythema Eyes: Appearance normal, both eyes and all related structures Neck: Normal visual inspection Respiratory: Exp Wheezes present. Normal respiratory effort, able to speak in complete sentences, Actively coughing, no respiratory distress, not tachypneic, no tripod positioning and no use of accessory muscles. Cardiovascular: Regular rate and rhythm. Normal S1 and S2 Skin: No rashes or lesions noted Neuro: Patient oriented x3 Extremities: Normal to inspection and Yes no clubbing, cyanosis or edema PFSH Medical History (Updated 08/12/24 @ 15:59 by Gail Palm PA-C) Lower respiratory infection (e.g., bronchitis, pneumonia, pneumonitis, pulmonitis) Pre-op examination Rash Blurring of vision Difficulty sleeping Skin infection, bacterial Right upper quadrant pain Chest discomfort Wheezing on auscultation Chest wall pain Chest pain Pneumonia COVID-19 Physical exam Screening PSA (prostate specific antigen) Upset stomach Encounter for routine adult physical exam with abnormal findings Screening for colon cancer Medicare annual wellness visit, subsequent COVID-19 vaccine series completed Agoraphobia Anxiety Impaired fasting glucose GERD (gastroesophageal reflux disease) Depression TIA (transient ischemic attack) Sleep apnea Memory deficit Morbid obesity Toenail fungus Hypertension, essential Gait difficulty Surgical History H/O colonoscopy Hx of arthroscopic knee surgery Hx of appendectomy Hx of cholecystectomy History of esophagogastroduodenoscopy (EGD) Family History Sister Dementia Other Substance use disorder Social History Housing: House Are you a primary date night caregiver to a significant other at home: No Do you presently have visiting nurse or other home services: No Alcohol intake: never Patient Tobacco Use Status: Former Tobacco user Tobacco use type: Cigarette e-Cigarette/Vaping Use: Never Used Second Hand Smoke Exposure: No Substance Use Type: Marijuana service: No Current occupational status: other Cognitive needs: No Hearing needs: No Vision needs: Yes Review of Systems Const All systems reviewed & are unremarkable except as noted in HPI and below Physical Exam Vital Signs: Last Vital Signs Temp 97.4 F 08/12/24 15:25 Pulse 95 08/12/24 15:25 BP 140/94 H 08/12/24 15:25 Pulse Ox 100 08/12/24 15:25 Oxygen Delivery Method Room Air 08/12/24 15:25 Assessment & Plan Assessment & Plan (1) Lower respiratory infection (e.g., bronchitis, pneumonia, pneumonitis, pulmonitis): Code(s): J22 - Unspecified acute lower respiratory infection Plan: VSS, pt well appearing and PE remarkable for exp wheezes. Gave Duoneb treatment in office with relief of shortness of breath. The patient's treatment for persistent cough will involve the continuation of Augmentin and the use of a revised steroid regimen with prednisone 50mg x 5 days. Use of the inhaler will continue. If condition worsens, patient should go to the ED. Patient was informed and verbally consented to the use of an ambient scribe for clinic note documentation during this visit Orders: Orders AMB Nebulizer Treatment Today R06.2 - Wheezing Medications: New albuterol sulfate 2.5 mg (3 mL) inhalation ONCE 3 mL 0RF wheezing R06.2 - Wheezing prednisone 50 mg PO QAM 5 tabs 0RF Coding Level of Care Code Est Pt Level 4 (29173) Diagnoses Lower respiratory infection (e.g., bronchitis, pneumonia, pneumonitis, pulmonitis) J22
[2024-08-12 15:25] VITALS: BP 140/94; PULSE 95; TEMP 36.3; O2SAT 100
== END 2024-08-12 16:59 | disposition home or self-care (01) ==
PROVIDERS: PCP Nurse Practitioner Family; Visit Provider Physician Assistant
DX: J22 Unspecified acute lower respiratory infection (principal)

== ENCOUNTER → 2024-08-12 15:21 | Outpatient (BNVA) | payer MEDICARE, MEDICAID, SELFPAY | PROVIDERS: PCP Nurse Practitioner Family; Visit Provider Physician Assistant | DX: J22 Unspecified acute lower respiratory infection (principal) | CPT/HCPCS: 99212 ==

== ENCOUNTER 2024-08-20 08:01 | Outpatient (AMB) | payer MEDICARE, MEDICAID, SELFPAY ==
--- OUTSIDE RECORDS SUMMARY | 2024-08-20 08:08 | XMS_ITS | Patient Health Record ---
Author Organization [facility] Address [address] [place] [address] Care Team Providers Care Political Aide Name Role Phone Rufino JUNE, [facility] Primary Care Provider Angel Guzman Jr Unavailable [phone] Allergies Allergen (clinical drug ingredient) Drug/Non Drug [...] Problem Status W/U Status Risk Notes Problem 465090777 Colon cancer screening (Z12.11) Active confirmed Problem 636440443 Gastro-esophagea l reflux disease without esophagitis (K21.9) Active confirmed Problem 50103554 Hypertension (I10) Active confirmed Problem 609775722 Gastroesophageal reflux disease with esophagitis without hemorrhage (K21.00) Active confirmed Plan Of Treatment Future Test Test Name Order Date COLONOSCOPY 02/28/2011 UPPER GI ENDOSCOPY 06/06/2016 COLONOSCOPY 08/03/2021 Insurance Providers Payer Name Payer Address Payer Phone Subscriber Number Group Number Insured Name Patient Relationship to Insured Coverage Start Date Coverage End Date MEDICARE OF [place] [address] [place] [address] [id number] BELKIS FOOTE Self - patient is the insured MEDICAID OF [facility] [employer] [facility] [address] [place] [address] [id number] BELKIS FOOTE Self - patient is the insured Medical (General) History Medical History History ICD Code hypertension type II diabetes depression TIA 2003 NUBIA/CPAP Gastroesophageal reflux disease, EGD/17, mild distal esophagitis Surgical History Surgery Date(Month/Year) cholecystectomy appendectomy arthroscopic knee surgery
[2024-08-20 08:09] VITALS: BP 140/90; PULSE 73; O2SAT 95; BMI 53.2
--- NOTE | 2024-08-20 08:09 | MHC.OFFWIV ---
Intake Vital Signs 08/20/24 08:09 Height 6 ft 1 in Weight 403 lb BMI 53.2 BP 140/90 H Blood Pressure Location Rt brachial Position Sitting Pulse 73 Pulse Source Pulse Oximeter Pulse Oximetry (%) 95 Oxygen Delivery Method Room Air Intake Visit Reasons: EP SOB, diff walking Patient Tobacco Use Status: Former Tobacco user Allergies codeine [CODEINE] Allergy (Severe, Verified 08/20/24 08:09) ANAPHYLAXIS, hives adhesive tape Adverse Reaction (Mild, Verified 08/20/24 08:09) Irritable dust Allergy (Unknown, Uncoded 08/20/24 08:09) swelling Do you need a note to return to daycare/school/sports/work: No HPI HPI Comments History of Present Illness Details 63 y/o Male patient who presents to the walk in clinic with c/o SOB and chest tightness. Pt has been seen here several times for similar concerns. Last visit he was treated with Abx and Prednisone. Denies any h/o Respiratory diseases. Pt reports Chest Pain with breathing in and out. Reports wheezing and chest tightness. Pt is Morbidly Obese and very upset with himself. Reports that he does not have the will power to stop eating and exercise. He feels Depressed, and all he does is eat and sit in-front of TV. Patient frustrated with his weight and wants His PCP to give him Ozempic. [facility] Medical History (Updated 08/12/24 @ 15:59 by Gail Palm PA-C) Lower respiratory infection (e.g., bronchitis, pneumonia, pneumonitis, pulmonitis) Pre-op examination Rash Blurring of vision Difficulty sleeping Skin infection, bacterial Right upper quadrant pain Chest discomfort Wheezing on auscultation Chest wall pain Chest pain Pneumonia COVID-19 Physical exam Screening PSA (prostate specific antigen) Upset stomach Encounter for routine adult physical exam with abnormal findings Screening for colon cancer Medicare annual wellness visit, subsequent COVID-19 vaccine series completed Agoraphobia Anxiety Impaired fasting glucose GERD (gastroesophageal reflux disease) Depression TIA (transient ischemic attack) Sleep apnea Memory deficit Morbid obesity Toenail fungus Hypertension, essential Gait difficulty Surgical History H/O colonoscopy Hx of arthroscopic knee surgery Hx of appendectomy Hx of cholecystectomy History of esophagogastroduodenoscopy (EGD) Family History Sister Dementia Other Substance use disorder Social History Housing: House Are you a primary health care aide to a significant other at home: No Do you presently have visiting nurse or other home services: No Alcohol intake: never Patient Tobacco Use Status: Former Tobacco user Tobacco use type: Cigarette e-Cigarette/Vaping Use: Never Used Second Hand Smoke Exposure: No Substance Use Type: Marijuana service: No Current occupational status: other Cognitive needs: No Hearing needs: No Vision needs: Yes Review of Systems Const All systems reviewed & are unremarkable except as noted in HPI and below Physical Exam Vital Signs: Last Vital Signs Pulse 73 08/20/24 08:09 BP 140/90 H 08/20/24 08:09 Pulse Ox 95 08/20/24 08:09 Oxygen Delivery Method Room Air 08/20/24 08:09 BMI result Body Mass Index 53.2 Const General: no acute distress Nutritional Appearance: obese morbidly obese Orientation/consciousness: patient oriented x3 Resp Effort & Inspection: normal respiratory effort and able to speak in complete sentences Auscultation: no crackles, no rales, no rhonchi and wheezes inspiratory wheezes Cardio Heart sounds: S1 normal heart sound present and S2 normal heart sound present Neuro General: patient oriented x3 Assessment & Plan Assessment & Plan (1) Wheezing on auscultation: Code(s): R06.2 - Wheezing Plan: Ordered Symbicort inhaler BID. No need for new Imaging today. He had Abx and Prednisone on previous visits with no relief. Advised to F/u with PCP for CT-Scan of chest Pt would benefit seeing Pulmonology Medications: New budesonide-formoterol 80-4.5 mcg/actuation (Symbicort) 2 puffs inhalation BID 10.2 grams 1RF R06.2 - Wheezing Discontinued albuterol sulfate 90 mcg/actuation Discontinued Reason: Duplicate 1 - 2 puffs inhalation QID PRN 6.7 grams 0RF Shortness Of Breath Or Wheezing Coding Level of Care Code Est Pt Level 4 (88610) Diagnoses Wheezing on auscultation R06.2 Time Spent (min) 20
== END 2024-08-20 08:41 | disposition home or self-care (01) ==
PROVIDERS: PCP Nurse Practitioner Family; Visit Provider Nurse Practitioner Family
DX: R06.2 Wheezing (principal)

== ENCOUNTER → 2024-08-20 08:01 | Outpatient (BNVA) | payer MEDICARE, MEDICAID, SELFPAY | PROVIDERS: PCP Nurse Practitioner Family; Visit Provider Nurse Practitioner Family | DX: R06.2 Wheezing (principal) | CPT/HCPCS: 99212 ==

== ENCOUNTER 2024-08-21 09:46 | Outpatient (AMB) | payer MEDICARE, MEDICAID, SELFPAY ==
[2024-08-21 10:25] VITALS: BP 128/74; PULSE 75; RESP 17; TEMP 36.6; O2SAT 96; BMI 53.2
--- NOTE | 2024-08-21 10:25 | AM.OFFWIN_ITS ---
Intake Vital Signs 08/21/24 10:25 Height 6 ft 1 in Weight 403 lb BMI 53.2 BP 128/74 Blood Pressure Location Lt brachial Position Sitting Respiration 17 Pulse 75 Pulse Source Pulse Oximeter Temp 97.8 F Pulse Oximetry (%) 96 Oxygen Delivery Method Room Air Intake Visit Reasons: EP Trouble breathing Patient Tobacco Use Status: Former Tobacco user Allergies codeine [CODEINE] Allergy (Severe, Verified 08/20/24 08:09) ANAPHYLAXIS, hives adhesive tape Adverse Reaction (Mild, Verified 08/20/24 08:09) Irritable dust Allergy (Unknown, Uncoded 08/20/24 08:09) swelling HPI HPI Comments History of Present Illness Details History - The patient is a 63 year old male pres enting with continued shortness of breath and persistent cough. - On August 03, he experienced shortnes s of breath along with fever, sweating, and breathing difficulties. A chest X-ray revealed no acute issues, and he was prescribed Tessalon Perles, steroids, Kendra D, an Albuterol inhaler, and a Z- [place]. - Despite treatment, he returned on reporting a persistent cough. He was treated with an Albuterol nebulizer and 10 days of Augmentin. - On August 12, the patient presented wi th persistent cough, lung pain, night sweats, and was diagnosed with another lower respiratory infection, receiving nebulizer treatment and a prednisone taper. - On August 20, we prescribed Symbicort to manage him as asthmatic. However, pharmacy said ins will not cover this and they recommended Advair or Breo. - The patient has reported pronounced ef fects on sleep, coughing affecting bowel control, and limited relief from current Albuterol usage. Physical Exam General: Cooperative, healthy appearing, comfortable and no acute distress Orientation/consciousness: Patient oriented x3 Limitations: No limitations Head: Normal to inspection Ears: Hearing grossly normal bilaterally, external ears normal Nose: Normal external nose present, Normal nares present and No nasal discharge present Face and sinus: Normal facial exam Eyes: Appearance normal, both eyes and all related structures Neck: Normal visual inspection Respiratory: Clear to auscultation bilaterally. Normal respiratory effort, able to speak in complete sentences, Actively coughing, no respiratory distress, not tachypneic, no tripod positioning and no use of accessory muscles Cardiovascular: Regular rate and rhythm. Normal S1 and S2 Skin: No rashes or lesions noted Neuro: Patient oriented x3 Extremities: Normal to inspection and Yes no clubbing, cyanosis or edema PFSH Medical History (Updated 08/20/24 @ 12:21 by Chucho Ortiz [facility]) Lower respiratory infection (e.g., bronchitis, pneumonia, pneumonitis, pulmo nitis) Pre-op examination Rash Blurring of vision Difficulty sleeping Skin infection, bacterial Right upper quadrant pain Chest discomfort Wheezing on auscultation Chest wall pain Chest pain Pneumonia COVID-19 Physical exam Screening PSA (prostate specific antigen) Upset stomach Encounter for routine adult physical exam with abnormal findings Screening for colon cancer Medicare annual wellness visit, subsequent COVID-19 vaccine series completed Agoraphobia Anxiety Impaired fasting glucose GERD (gastroesophageal reflux disease) Depression TIA (transient ischemic attack) Sleep apnea Memory deficit Morbid obesity Toenail fungus Hypertension, essential Gait difficulty Surgical History H/O colonoscopy Hx of arthroscopic knee surgery Hx of appendectomy Hx of cholecystectomy History of esophagogastroduodenoscopy (EGD) Family History Sister Dementia Other Substance use disorder Social History Housing: House Are you a primary manager respiratory care to a significant other at home: No Do you presently have visiting nurse or other home services: No Alcohol intake: never Patient Tobacco Use Status: Former Tobacco user Tobacco use type: Cigarette e-Cigarette/Vaping Use: Never Used Second Hand Smoke Exposure: No Substance Use Type: Marijuana service: No Current occupational status: other Cognitive needs: No Hearing needs: No Vision needs: Yes Review of Systems Const All systems reviewed & are unremarkable except as noted in HPI and below Physical Exam Vital Signs: BMI result Body Mass Index 53.2 Assessment & Plan Assessment & Plan (1) Cough: Code(s): R05.9 - Cough, unspecified Qualifiers: Cough type: subacute Qualified Code(s): R05.2 - Subacute cough Plan: VSS, pt well appearing and PE unremarkable. The patient presented with ongoing shortness of breath and a persistent cough, initially treated with various interventions including antibiotics and steroids. Patient does not appear to have a URI, rather likely asthma or COPD at this point. As his ins co would not cover Symbicort, our nurse Sarita called the pharmacy and they said his ins would cover Advair or Breo so a change to Advair was prescribed for longer-term management, reflecting potential asthma and ongoing symptoms despite past treatments. The patient was instructed to use Advair twice daily for better respiratory control, supplemented by Albuterol for acute needs. Tessalon Perles will aid in nighttime cough reduction, coupled with a daily antihistamine to potentially manage allergy symptoms. Rescheduling the stress test was emphasized, ensuring cardiovascular concerns are addressed once the patient's condition allows. Comprehensive medication instructions were provided to ensure understanding and compliance. Patient was informed and verbally consented to the use of an ambient scribe for clinic note documentation during this visit Medications: New benzonatate 200 mg PO BEDTIME PRN 10 caps 0RF cough fluticasone propion-salmeterol 45-21 mcg/actuation (Advair HFA) 2 puffs inhalation Q12H 12 grams 0RF Refilled albuterol sulfate 90 mcg/actuation 2 puffs inhalation Q6H PRN 8.5 grams 0RF shortness of breath or wheezing or cough Discontinued budesonide-formoterol 80-4.5 mcg/actuation (Symbicort) Discontinued Reason: Doctor's Order 2 puffs inhalation BID 10.2 grams 1RF R06.2 - Wheezing Coding Level of Care Code Est Pt Level 4 (65074) Diagnoses Subacute cough R05.2 Cough type: subacute
--- OUTSIDE RECORDS SUMMARY | 2024-08-21 10:26 | XMS_ITS | Patient Health Record ---
Author Organization [facility] Address [address] [place] [address] Care Team Providers Care Vocal Teacher Name Role Phone [facility]ufino [facility] Primary [facility] Provider Angel Guzman Jr Unavailable [phone] Allergies Allergen (clinical drug ingredient) Drug/Non Drug [...] Problem Status W/U Status Risk Notes Problem [id number] Colon cancer screening (Z12.11) Active confirmed Problem 920782077 Gastro-esophagea l reflux disease without esophagitis (K21.9) Active confirmed Problem 25597758 Hypertension (I10) Active confirmed Problem 845684866 Gastroesophageal reflux disease with esophagitis without hemorrhage (K21.00) Active confirmed Plan Of Treatment Future Test Test Name Order Date COLONOSCOPY 02/28/2011 UPPER GI ENDOSCOPY 06/06/2016 COLONOSCOPY 08/03/2021 Insurance Providers Payer Name Payer Address Payer Phone Subscriber Number Group Number Insured Name Patient Relationship to Insured Coverage Start Date Coverage End Date MED[place]ARE OF [place] [address] [place] [address] [id number] BELKIS FOOTE Self - patient is the insured MEDICAID OF [facility] [address] [place] [address] [id number] BELKIS FOOTE Self - patient is the insured Medical (General) History Medical History History ICD Code hypertension type II diabetes depression TIA 2003 NUBIA/CPAP Gastroesophageal reflux disease, EGD/17, mild distal esophagitis Surgical History Surgery Date(Month/Year) cholecystectomy appendectomy arthroscopic knee surgery
== END 2024-08-21 10:52 | disposition home or self-care (01) ==
PROVIDERS: PCP Nurse Practitioner Family; Visit Provider Physician Assistant
DX: R05.2 Subacute cough (principal)

== ENCOUNTER → 2024-08-21 09:46 | Outpatient (BNVA) | payer MEDICARE, MEDICAID, SELFPAY | PROVIDERS: PCP Nurse Practitioner Family; Visit Provider Physician Assistant | DX: R05.2 Subacute cough (principal) | CPT/HCPCS: 99212 ==

== ENCOUNTER → 2024-09-15 07:46 | Outpatient (REF) | payer MEDICARE, MEDICAID, SELFPAY ==
--- NOTE | ~2024-09-15 | NM_ITS ---
EXERCISE MYOCARDIAL PERFUSION STUDY INDICATION: Chest pain to evaluate for myocardial ischemia TECHNIQUE: The patient was brought in for an exercise perfusion study on 09/15/2024. Patient performed exercise as per Kavon protocol and was not able to achieve target heart rate and low exercise capacity and was subsequently switched to a Lexiscan and was injected 45 mCi of sestamibi once target heart rate was achieved. Images were obtained using the SPECT gamma camera interlaced with the gating device. Images were obtained in supine position. Resting perfusion study was performed on 09/16/2024. Patient was administered 45 mCi of sestamibi intravenously at rest. Images were then obtained in supine position. Images obtained without without CT attenuation. Total DLP 218 mGy-cm. Images were processed with the software and compared side to side in short axis, horizontal long axis and vertical long axis views. FINDINGS: Raw images were reviewed The stress perfusion study showed non attenuated images show moderately reduced uptake in the basal inferior wall and mildly reduced uptake in the mid and inferoapical wall as well as moderately reduced uptake in the apex. There corrected images show minimal thinning of the apex of the LV myocardium. The gated study shows normal LV systolic function with calculated LVEF of 62%. LV cavity is mildly dilated in size. The gated study shows normal systolic wall thickening and contraction of segments. Resting study shows nonattenuated images show improved uptake in the inferior as well as inferoapical wall of the LV myocardium. Attenuated corrected images show no significant changes. Gating at rest reveals normal systolic wall motion with ejection fraction at 64%. The findings are consistent with reversible defect noted on nonrotated images suggestive of ischemia nonreproducible corrected images.. NM/NM cardiolite stress test IMPRESSION: 1. Myocardial perfusion imaging study shows equivocal for inferior ischemia. 2. Gated LVEF is 64%. 3. Transient ischemic dilatation present on nonattenuated images. EKG revealed nondiagnostic for ischemia. Electronically signed by: Florencio Thomas MD 09/16/2024 05:49 PM EDT
--- OUTSIDE RECORDS SUMMARY | 2024-09-15 07:48 | XMS_ITS | Patient Health Record ---
Author Organization [facility] Address [address] [place] [address] Care Team Providers Care Portfolio Accountant Name Role Phone R[facility]ino [facility] Primary [facility] Provider Angel Guzman [...] Problem Status W/U Status Risk Notes Problem 344739294 Colon cancer screening (Z12.11) Active confirmed Problem 187611447 Gastro-esophagea l reflux disease without esophagitis (K21.9) Active confirmed Problem 36986384 Hypertension (I10) Active confirmed Problem 926820345 Gastroesophageal reflux disease with esophagitis without hemorrhage (K21.00) Active confirmed Plan Of Treatment Future Test Test Name Order Date COLONOSCOPY 02/28/2011 UPPER GI ENDOSCOPY 06/06/2016 COLONOSCOPY 08/03/2021 Insurance Providers Payer Name Payer Address Payer Phone Subscriber Number Group Number Insured Name Patient Relationship to Insured Coverage Start Date Coverage End Date MEDICARE OF [place] [address] [place] [address] [id number] BELKIS FOOTE Self - patient is the insured MEDICAID OF [facility] [address] [place] [address] [id number] BELKIS FOOTE Self - patient is the insured Medical (General) History Medical History History ICD Code hypertension type II diabetes depression TIA 2003 NUBIA/CPAP Gastroesophageal reflux disease, EGD/17, mild distal esophagitis Surgical History Surgery Date(Month/Year) cholecystectomy appendectomy arthroscopic knee surgery
--- NOTE | 2024-09-15 07:49 | CA_ITS ---
Acquisition Time: 2024-09-15 08:07:27 Total Exercise Time: 00:02:48 Test Indications: CP,Dyspnea Medications: AMLODIPINE LISINOPRIL ALBUTEROOL INHALER Protocol: GENNA Max HR: 113 BPM 73% of Pred: 154 BPM Max BP: 200/90 mmHG Max Work Load: 4.6 METS Exercise stress test with exercise 2 mins 48 secs of Genna Protocol, requested to stop due to mild SOB and mostly leg discomfort, achieving only 73% MPHR. Test switched to Lexiscan. Pharmacological stress test with Lexiscan while pt swings his legs in the chair, with reports of 5/10 mid chest tightness, SOB and lightheadedness, with isolated PACs and PVCs, with normotensive response to injection. Nondiagnostic EKG for ischemia. In recovery, pt treated with IVP Aminophylline 75 mg to reverse Lexiscan after which pt feeling back to baseline. Nuclear images pending. Test reviewed with Dr. Thomas. Referred By: Chucho Ortiz Electronically Signed By: Stanislav Broderick
== END ==
LOC: HO.CARD 07:46
PROVIDERS: PCP Nurse Practitioner Family; Visit Provider Nurse Practitioner Family
DX: R07.89 Other chest pain (principal); I44.4 Left anterior fascicular block
CPT/HCPCS: 78452; 93017; A9500; J0280; J2785

== ENCOUNTER → 2024-09-15 07:49 | Outpatient (BNV) | payer MEDICARE, MEDICAID, SELFPAY | PROVIDERS: PCP Nurse Practitioner Family | DX: R06.02 Shortness of breath (principal); I49.1 Atrial premature depolarization; I49.3 Ventricular premature depolarization | CPT/HCPCS: 78452; 93016; 93018 ==

== ENCOUNTER 2024-09-21 14:00 | Outpatient (AMB) | payer MEDICARE, MEDICAID, SELFPAY ==
--- OUTSIDE RECORDS SUMMARY | 2024-09-21 14:05 | XMS_ITS | Patient Health Record ---
Author Organization [facility] Address [address] [place] [address] Care Team Providers Care Flight Service Specialist Name Role Phone Rufino JUNE, [facility] Primary Care Provider Angel Guzman Jr Unavailable [phone] Allergies Allergen (clinical drug ingredient) Drug/Non [...] Problem Status W/U Status Risk Notes Problem 974469194 Colon cancer screening (Z12.11) Active confirmed Problem 741277133 Gastro-esophagea l reflux disease without esophagitis (K21.9) Active confirmed Problem 29266585 Hypertension (I10) Active confirmed Problem 384401809 Gastroesophageal reflux disease with esophagitis without hemorrhage (K21.00) Active confirmed Plan Of Treatment Future Test Test Name Order Date COLONOSCOPY 02/28/2011 UPPER GI ENDOSCOPY 06/06/2016 COLONOSCOPY 08/03/2021 Insurance Providers Payer Name Payer Address Payer Phone Subscriber Number Group Number Insured Name Patient Relationship to Insured Coverage Start Date Coverage End Date MEDICARE OF [place] [address] [place] [address] [id number] BELKIS FOOTE Self - patient is the insured MEDICAID OF [facility] [address] [place] [address] [id number] BELKIS FOOTE Self - patient is the insured Medical (General) History Medical History History ICD Code hypertension type II diabetes depression TIA 2003 NUBIA/CPAP Gastroesophageal reflux disease, EGD/17, mild distal esophagitis Surgical History Surgery Date(Month/Year) cholecystectomy appendectomy arthroscopic knee surgery
--- NOTE | 2024-09-21 14:08 | A.OFFPC_ITS ---
Vital Signs 09/21/24 14:09 Height 6 ft 1 in Weight 407 lb BMI 53.7 BP 125/85 Blood Pressure Location Rt brachial Position Sitting Pulse 87 Pulse Source Pulse Oximeter Temp 97.7 F Temp Source Oral Pulse Oximetry (%) 98 Oxygen Delivery Method Room Air Intake Visit Reasons: 4 months f/up Pre Certification Specialist Required: No Accompanied by: Spouse Allergies codeine [CODEINE] Allergy (Severe, Verified 09/21/24 14:14) ANAPHYLAXIS, hives adhesive tape Adverse Reaction (Mild, Verified 09/21/24 14:14) Irritable dust Allergy (Unknown, Uncoded 08/20/24 08:09) swelling Tobacco use date assessed: 05/19/24 Dental Screening Dental Screen Date: 05/19/24 HPI 4 months f/up HPI Details Chief Complaint The patient complains of chest discomfort primarily associated with inhalation and exhalation. History of Present Illness The patient is a 64-year-old male presenting with chest discomfort and shortness of breath. The discomfort is localized to the right upper chest and is primarily associated with inhalation and exhalation, with increased sensation during deep breaths. There is no radiation to the extremities, and the patient denies any paresthesia. He does not experience pain upon palpation, though there is tenderness noted during inhalation. The shortness of breath emerged following a COVID-19 infection from late May to early June and has been persistent since. The recent stress test yielded equivocal results, and a CT scan was not completed as planned in the prior month. The patient has a follow-up with cardiology in two days, which is pertinent given the equivocal results of the stress test and ongoing symptoms. HTN: stable currently Social History - The patient is described as morbidly o bese. - No specific lifestyle activities or ot her social factors were discussed. Health Maintenance - The patient was encouraged to complete lab tests in the near future. - The patient is advised not to miss the cardiology appointment scheduled in two days. Review of Systems - Cardiovascular: Reports chest discomfo rt, denies any radiating symptoms down extremities. - Respiratory: Reports shortness of ritchie th, primarily after COVID-19 infection. Reports chest discomfort on deep inhalation and exhalation. - Musculoskeletal: Reports tenderness in right upper chest during inhalation. - General: Denies pain with palpation. Physical Exam General: Cooperative, healthy appearing, comfortable, no acute distress and well developed Orientation: Patient oriented x3 Limitations: No limitations Head: Normal to inspection Ears: Hearing grossly normal bilaterally Nose: Normal external nose present Face and sinus: Normal facial exam Eyes: Appearance normal, both eyes and all related structures Neck: Normal visual inspection and Yes full ROM Respiratory: Diminished on moving air bilaterally, normal respiratory effort and able to speak in complete sentences. Clear to auscultation bilaterally Cardiovascular: Regular rate and rhythm. S1 S2 morbidly obese GI: Normal to inspection. Soft to palpation and nontender Skin: No rashes or lesions noted Neuro: Patient oriented x3 Extremities: Normal to inspection Results - Tests and Diagnostics: A previous stre ss test was equivocal. A CT scan was ordered the prior month but was not completed. Plan To address the chest discomfort and shortness of breath, I will ensure the CT scan is completed to investigate further. The upcoming cardiology follow-up is essential, especially following the equivocal stress test. Emphasis on weight management and cardiovascular monitoring is reinforced. I have encouraged completing the pending laboratory work to gain a comprehensive view of his health status. Discussion Notes I discussed with the patient the importance of completing the CT scan to obtain further insights into the cause of his chest discomfort and shortness of breath. I highlighted the significance of the pending cardiology appointment, considering the equivocal results from the recent stress test. Emphasis was placed on the relationship between his symptoms and his weight, encouraging weig ht management strategies. I will monitor his cardiovascular health closely, and I emphasized the importance of adhering to follow-up appointments. Patient Instructions - Make sure to attend your cardiology ap pointment in two days. - Complete any pending lab work as soon as possible. - I will reorder the CT scan; please ens ure it's done. - Focus on weight management through t and exercise. - Follow up with any new symptoms or wor sening of current symptoms. [facility] Medical History (Updated 09/21/24 @ 15:02 by Chucho Ortiz, [facility]) Chest discomfort Lower respiratory infection (e.g., bronchitis, pneumonia, pneumonitis, pulmonitis) Pre-op examination Rash Blurring of vision Difficulty sleeping Skin infection, bacterial Right upper quadrant pain Wheezing on auscultation Chest wall pain Chest pain Pneumonia COVID-19 Physical exam Screening PSA (prostate specific antigen) Upset stomach Encounter for routine adult physical exam with abnormal findings Screening for colon cancer Medicare annual wellness visit, subsequent COVID-19 vaccine series completed Agoraphobia Anxiety Impaired fasting glucose GERD (gastroesophageal reflux disease) Depression TIA (transient ischemic attack) Sleep apnea Memory deficit Morbid obesity Toenail fungus Hypertension, essential Gait difficulty Surgical History S/P Mohs surgery for basal cell carcinoma H/O colonoscopy Hx of arthroscopic knee surgery Hx of appendectomy Hx of cholecystectomy History of esophagogastroduodenoscopy (EGD) Family History Sister Dementia Other Substance use disorder Social History Housing: House Are you a primary youth career specialist to a significant other at home: No Do you presently have visiting nurse or other home services: No Alcohol intake: never Patient Tobacco Use Status: Former Tobacco user Tobacco use type: Cigarette e-Cigarette/Vaping Use: Never Used Second Hand Smoke Exposure: No Substance Use Type: Marijuana service: No Current occupational status: other Cognitive needs: No Hearing needs: No Vision needs: Yes Questionnaire Thrive Questionnaire Date Thrive assessed: 09/21/24 I am a: Patient What is your living situation today?: I choose not to answer this question Within the past 12 months, did the food you bought not last and you didn't have the money to get more?: I choose not to answer this question Within the past 12 months, did you worry whether your food would run out before you got money to buy more?: I choose not to answer this question Do you have trouble paying for medicines?: I choose not to answer this question Do you have trouble getting transportation to medical appointments?: I choose not to answer this question Do you have trouble paying your heating and electricity bill?: I choose not to answer this question Do you have trouble taking care of your child, family member or friend?: I choose not to answer this question Do you have trouble with day-to-day activities such as bathing, preparing meals, shopping, managing finances, etc.?: I choose not to answer this question Are you currently unemployed and looking for a job?: I choose not to answer this question Are you interested in more education?: I choose not to answer this question Please select the resources that you would like help with: None Currently or been in a relationship where the following occur: I choose not to answer THRIVE Score: 0 AUDIT C Alcohol Use Questionnaire (AUDIT-C) 3. How often do you have six or more drinks on one occasion?: Never Total Score: 0 MAICOL-7 AMB Questionnaire MAICOL-7 Date MAICOL - 7 assessed: 09/21/24 Feeling nervous, anxious, or on edge: 1 = Several days Not being able to stop or control worryin = More than half the days Worrying too much about different things: 2 = More than half the days Trouble relaxin = Several days Being so restless that it is hard to sit still: 2 = More than half the days Becoming easily annoyed or irritable: 3 = Nearly every day Feeling afraid as if something awful might happen: 3 = Nearly every day Total MAICOL-7 score (0-4 normal; 5-9 mild; 10-14 moderate; 15-21 severe): 14 Source: Developed by Drs. Srinivasan Valdez, Whit Vogt, Travon Gunn and colleagues, with an educational tahira from [employer]. MAICOL-7 Assessment Billing MAICOL-7 Assessment Tool: MAICOL-7 Assessment 34026 Physical exam (Primary Care) Vital Signs: Last Vital Signs Temp 97.7 F 09/21/24 14:09 Pulse 87 09/21/24 14:09 BP 125/85 09/21/24 14:09 Pulse Ox 98 09/21/24 14:09 Oxygen Delivery Method Room Air 09/21/24 14:09 BMI result Body Mass Index 53.7 Tobacco/Smoking Status: Tobacco use Status Tobacco use date assessed 05/19/24 09/21/24 14:16 Patient Tobacco Use Status Former Tobacco user 09/21/24 14:16 Tobacco use type Cigarette 09/21/24 14:16 e-Cigarette/Vaping Use Never Used 09/21/24 14:16 Thrive Assessment: Date of Thrive Assessment Date Thrive assessed 09/21/24 09/21/24 14:17 Currently or been in a relationship where the following occur: I choose not to answer Coding Level of Care Code Est Pt Level 3 (88774) Diagnoses Hypertension, essential I10 Left anterior fascicular block (LAFB) I44.4 Morbid obesity E66.01 Chest discomfort R07.89 Additional Codes MAICOL-7 Assessment Billing - MAICOL-7 Assessment Tool: MAICOL-7 Assessment 69173 ([id number]) Assessment & Plan Assessment & Plan (1) Hypertension, essential: Code(s): I10 - Essential (primary) hypertension Category: Medical (2) Left anterior fascicular block (LAFB): Code(s): I44.4 - Left anterior fascicular block Category: Medical (3) Morbid obesity: Code(s): E66.01 - Morbid (severe) obesity due to excess calories Category: Medical (4) Chest discomfort: Comment: upon inhalation mostly Code(s): R07.89 - Other chest pain Category: Medical Plan . Orders: Orders Complete Blood Count Auto Diff Today I10 - Essential (primary) hypertension UA CC w/rflx Micro + Cult Today I10 - Essential (primary) hypertension Lipid Panel Today I10 - Essential (primary) hypertension Comprehensive [place]. Panel Fast Today I10 - Essential (primary) hypertension TSH reflex Free T4 Today I10 - Essential (primary) hypertension
[2024-09-21 14:09] VITALS: BP 125/85; PULSE 87; TEMP 36.5; O2SAT 98; BMI 53.7
== END 2024-09-21 14:59 | disposition home or self-care (01) ==
LOC: HO.HMCC 14:01
PROVIDERS: PCP Nurse Practitioner Family; Visit Provider Nurse Practitioner Family
DX: I10 Essential (primary) hypertension (principal); I44.4 Left anterior fascicular block; E66.01 Morbid (severe) obesity due to excess calories; Z68.43 Body mass index [BMI] 50.0-59.9, adult; R07.89 Other chest pain

== ENCOUNTER → 2024-09-21 14:00 | Outpatient (BNVA) | payer MEDICARE, MEDICAID, SELFPAY | PROVIDERS: PCP Nurse Practitioner Family; Visit Provider Nurse Practitioner Family | DX: I10 Essential (primary) hypertension (principal); I44.4 Left anterior fascicular block; E66.01 Morbid (severe) obesity due to excess calories; Z68.43 Body mass index [BMI] 50.0-59.9, adult; R07.89 Other chest pain; Z71.3 Dietary counseling and surveillance | CPT/HCPCS: 96127; 99212 ==

== ENCOUNTER → 2024-09-22 07:58 | Outpatient (RCR) | payer MEDICARE, MEDICAID, SELFPAY ==
--- NOTE | 2020-04-27 15:20 | MHC.PT.EP ---
[facility] [place] Office [place] Office [place] Office [address]once [address] [phone] F: [phone] F: [phone] F: [phone] F: [phone] Physical Therapy Plan of Care Date of Evaluation: 04/27/20 Date of Surgery: Diagnosis: Unspecified abnormalities of gait. Assessment: Pt is a 59 y/o male with a history of significant anxiety referred to PT for eval and treat of unspecified gait abnormality who presents with gait abnormality and decreased LE and core strength resulting in decreased tolerance for ambulating increased distances, decreased confidence ambulating, as well as decreased tolerance for negotiating stairs secondary to gait abnormality, and decreased core and LE strength, as well as R knee and LBP. Pt is deemed an appropriate candidate to receive skilled PT in order to address his physical limitations to improve his functional ability. Frequency and Duration: The patient will be seen 2x /wk x 5 wks. Short Term Goals: In 2 weeks: initiate HEP with evidence of compliance. Electric Motor Control Assembler Goals: In 5 weeks: improve DGI assessment to at least 21/24 in order to demonstrate improved risk of falls; initial: 17/24. In 5 weeks: improve core strength to > good. In 5 weeks: I with home program. Treatment Plan: Modalities to reduce pain, spasms and effusion. Manual therapy to restore motion and function. Therapeutic exercise to improve strength and flexibility. Neuromuscular re-education for posture and balance. Therapeutic activities to return to functional activities of daily living. Electronically signed by: Darci Walton PT. Please sign and return to therapist. Thank you for your referral.
--- NOTE | 2020-06-09 10:51 | MHC.PT.DC ---
[facility] [place] Office [place] Office [place] Office [address] Coby Ponce [address] [phone] F: [phone] F: [phone] F: [phone] F: [phone] Physical Therapy Discharge Report Diagnosis: Unspecified abnormalities of gait. Date of Surgery: Date of Evaluation: 04/27/20 Date of Discharge: 06/09/20 Treatments to Date: 5 Cancellations to Date: 2 No Shows to Date: 0 Discharge Status: Improved Function Independent with HEP Discharge Summary: Chucho has attended 5 treatment sessions before calling requesting DC as he has fears of COVID 19 in the community at this time and reports he is feeling much better, more stable on his feet and is grateful for the direction and instruction. Chucho has significant cognitive barriers and has been issued detailed copies of his therapy program to support his function, balance, and self fitness program. Unable to assess achievement of goals at time of DC. Electronically signed by: Darci Walton PT. Please sign and return to therapist. Thank you for your referral.
== END | disposition home or self-care (01) ==
LOC: HO.PTCHIC 04-27 09:46
PROVIDERS: PCP Internal Medicine; Visit Provider Internal Medicine
DX: R26.9 Unspecified abnormalities of gait and mobility (principal)
CPT/HCPCS: 97110; 97116; 97140; 97162

== ENCOUNTER 2024-09-23 10:38 | Outpatient (AMB) | payer MEDICARE, MEDICAID, SELFPAY ==
[2024-09-23 10:45] VITALS: BP 150/82; PULSE 72; BMI 53.7
--- NOTE | 2024-09-23 10:45 | A.OFFVIS_ITS ---
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 Required: No Accompanied by: Self / Same As Patient Allergies codeine [CODEINE] Allergy (Severe, Verified 09/21/24 14:14) ANAPHYLAXIS, hives adhesive tape Adverse Reaction (Mild, Verified 09/21/24 14:14) Irritable dust Allergy (Unknown, Uncoded 08/20/24 08:09) swelling Medication List - Last Reconciled 09/23/24 by Dl Sesay MD albuterol sulfate 90 mcg/actuation 2 puffs inhalation Q6H PRN amlodipine 10 mg PO DAILY 90 days fluticasone propion-salmeterol 45-21 mcg/actuation (Advair HFA) 2 puffs inhalation Q12H lisinopril 10 mg PO DAILY magnesium oxide 400 mg PO DAILY meloxicam 15 mg PO DAILY 30 days HPI Comments Details: Chucho is here for consultation regarding chest pain. He states that he has been having a lot of respiratory issues including COVID as well as pneumonia over the last few months. After that, he started noticing right-sided chest pain that is worse with breathing. Each time he takes a deep breath it has been hurting. However, over the last few weeks it has actually been improving and is no longer as bad as before. He does not have any exertional chest pain. No other specific concerns like shortness of breath or palpitations. He is morbidly obese. Has obstructive sleep apnea on CPAP. He states that he is under lot of stress because of various issues in his family. [facility] Medical History (Updated 09/23/24 @ 11:35 by Dl Sesay MD) Chest discomfort Lower respiratory infection (e.g., bronchitis, pneumonia, pneumonitis, pulmonitis) Pre-op examination Rash Blurring of vision Difficulty sleeping Skin infection, bacterial Right upper quadrant pain Wheezing on auscultation Chest wall pain Chest pain Pneumonia COVID-19 Physical exam Screening PSA (prostate specific antigen) Upset stomach Encounter for routine adult physical exam with abnormal findings Screening for colon cancer Medicare annual wellness visit, subsequent COVID-19 vaccine series completed Agoraphobia Anxiety Impaired fasting glucose GERD (gastroesophageal reflux disease) Depression TIA (transient ischemic attack) Sleep apnea Memory deficit Morbid obesity Toenail fungus Hypertension, essential Gait difficulty Surgical History S/P Mohs surgery for basal cell carcinoma H/O colonoscopy Hx of arthroscopic knee surgery Hx of appendectomy Hx of cholecystectomy History of esophagogastroduodenoscopy (EGD) Family History (Updated 09/23/24 @ 10:48 by Roshni Vallejo [facility]) Sister Dementia Father Heart attack Other Substance use disorder Social History Housing: House Are you a primary career development coordinator to a significant other at home: No Do you presently have visiting nurse or other home services: No Alcohol intake: never Patient Tobacco Use Status: Former Tobacco user Tobacco use type: Cigarette e-Cigarette/Vaping Use: Never Used Second Hand Smoke Exposure: No Substance Use Type: Marijuana service: No Current occupational status: other Cognitive needs: No Hearing needs: No Vision needs: Yes Review of Systems Const Denies chills, Denies fatigue, Denies fever(s), Denies frequent falls, Denies weakness, Denies weight gain and Denies weight loss ENT Denies dizziness Card Reports chest pain, Reports chest pain at rest, Reports chest pain with activity, Reports leg edema, Denies lightheadedness, Reports palpitations, Reports dyspnea, Reports dyspnea on exertion and Reports orthopnea Resp Denies cough, Reports dyspnea and Reports dyspnea on exertion GI Denies bloating and Denies change in bowel habits Musc Denies muscle weakness, Denies numbness and Denies tingling Neuro Denies dizziness, Denies frequent falls, Denies numbness, Denies tingling and Denies weakness Endo Denies fatigue and Reports palpitations Physical Exam Vital Signs: Last Vital Signs Pulse 72 09/23/24 10:45 BP 150/82 H 09/23/24 10:45 BMI result Body Mass Index 53.7 Const General: comfortable and no acute distress Orientation/consciousness: patient oriented x3 HEENT Other: Unremarkable Head: Yes normal to inspection Neck Neck: Yes normal visual inspection Chest Chest palpation & inspection: normal inspection of the chest Resp Auscultation: clear to auscultation bilaterally Cardio Palpation: normal PMI Heart sounds: S1 normal heart sound present, S2 normal heart sound present, no gallops, no murmurs and no rubs GI Palpation (GI): Soft to palpation Back/Spine/Pelvis Other: unremarkable Skin General skin exam: no rashes or lesions noted Neuro General: patient oriented x3 Extrem General: Yes normal to inspection Psych Mental Status: mental status grossly normal Office Procedures EKG Details: EKG with underlying sinus rhythm at 72/Min; left ventricular hypertrophy; PVCs; [place] [id number], Complete Assessment & Plan Assessment & Plan (1) Chest discomfort: Comment: upon inhalation mostly Code(s): R07.89 - Other chest pain Category: Medical Plan: In the echocardiogram, LVEF is 60-65%. No significant valvular findings. In the perfusion imaging, thought to be equivocal for inferior ischemia. However, I reviewed the images and most likely within normal limits. His body habitus may play a role in findings. Overall, recent right-sided chest pain, pleuritic sounding, in the context of respiratory infections and spontaneously improve. We will hold off any further workup at this time. He seems currently pain-free. (2) PVC (premature ventricular contraction): Code(s): I49.3 - Ventricular premature depolarization Category: Medical Plan: EKG shows premature ventricular contractions. Clinically, he has got no symptoms from this. As above, echocardiogram/stress test findings are reassuring. Possibly consider beta-blockers in the future. If indeed he can lose weight that will tremendously help. CPAP compliance. Plan Discussion Notes We discussed the patient?s history of pneumonia leading to COVID-19 pneumonia and subsequent chest pain. I explained that with the resolution of symptoms, we will monitor his progress and maintain support for lung function improvement. A CT scan is planned to assess lung condition further. The patient was informed about the importance of continuing his exercise routines, and he expressed understanding and agreement. Follow-up is expected in three to four months, and he was advised to report any significant changes or concerns. Patient was informed and verbally consented to the use of an ambient scribe for clinic note documentation during this visit. Patient Instructions: - Continue regular walking exercises to improve lung function. - Monitor for any new or worsening chest pain, especially if related to exertion. - Attend follow-up in three to four months. - Maintain communication about any health changes or concerns. - Address emotional stress by discussing with healthcare provider. Coding Level of Care Code New Pt Level 4 (04367) Complex EM visit Add On G2211 Diagnoses Chest discomfort R07.89 PVC (premature ventricular contraction) I49.3 CPT Codes EKG - CPT: 58667-Vfanqcynmrvcmctha, Complete ([id number])
--- OUTSIDE RECORDS SUMMARY | 2024-09-23 12:06 | XMS_ITS | Patient Health Record ---
Author Organization [facility] Address [address] [place] [address] Care Team Providers Care Architecture Intern Name Role Phone Rufino JUNE, [facility] Provider Angel Guzman Jr [...] Problem Status W/U Status Risk Notes Problem [id number] Colon cancer screening (Z12.11) Active confirmed Problem [id number] Gastro-esophagea l reflux disease without esophagitis (K21.9) Active confirmed Problem 18832811 Hypertension (I10) Active confirmed Problem [id number] Gastroesophageal reflux disease with esophagitis without hemorrhage (K21.00) Active confirmed Plan Of Treatment Future Test Test Name Order Date COLONOSCOPY 02/28/2011 UPPER GI ENDOSCOPY 06/06/2016 COLONOSCOPY 08/03/2021 Insurance Providers Payer Name Payer Address Payer Phone Subscriber Number Group Number Insured Name Patient Relationship to Insured Coverage Start Date Coverage End Date MEDICARE OF [place] [address] [place] [address] [id number] BELKIS FOOTE Self - patient is the insured MEDICAID OF [facility] [address] [place] [address] [id number] BELKIS FOOTE Self - patient is the insured Medical (General) History Medical History History ICD Code hypertension type II diabetes depression TIA 2003 NUBIA/CPAP Gastroesophageal reflux disease, EGD/17, mild distal esophagitis Surgical History Surgery Date(Month/Year) cholecystectomy appendectomy arthroscopic knee surgery
== END 2024-09-23 11:08 | disposition home or self-care (01) ==
LOC: HO.HCS 10:38
PROVIDERS: PCP Nurse Practitioner Family; Visit Provider Internal Medicine
DX: R07.89 Other chest pain (principal); I49.3 Ventricular premature depolarization
CPT/HCPCS: 93010; 99214; G2211

== ENCOUNTER → 2024-09-23 10:38 | Outpatient (BNVA) | payer MEDICARE, MEDICAID, SELFPAY | PROVIDERS: PCP Nurse Practitioner Family; Visit Provider Internal Medicine | DX: R07.89 Other chest pain (principal); I49.3 Ventricular premature depolarization | CPT/HCPCS: 93005; 99212 ==

== ENCOUNTER 2024-09-24 10:17 | Outpatient (AMB) | payer MEDICARE, MEDICAID, SELFPAY ==
--- NOTE | 2024-09-24 10:21 | A.OFFVIS_ITS ---
Vital Signs 09/24/24 10:22 Height 6 ft 1 in Weight 407 lb BMI 53.7 Pulse 71 Pulse Source Pulse Oximeter Pulse Oximetry (%) 97 Oxygen Delivery Method Room Air Intake Visit Reasons: Morbit Intake Note: Patient presents follow up NUBIA. Compliance in chart(90/90 days, >=4hrs-79 days, Median Leaks 0.0, AHI-5.0) Post Covid just getting over and now able to get full sleep. Allergies codeine [CODEINE] Allergy (Severe, Verified 09/24/24 10:35) ANAPHYLAXIS, hives adhesive tape Adverse Reaction (Mild, Verified 09/24/24 10:35) Irritable dust Allergy (Unknown, Uncoded 08/20/24 08:09) swelling HPI Comments Details: 64 y/o male patient presents for follow up of NUBIA on CPAP. Split night study c/w: Severe NUBIA The AHI was 74/hr and oxygen bernardino was 83%. Pt was trialed on CPAP [id number], breathing and oxygenation stabilized on CPAP at [id number]. He had a head cold followed by URI then RSV and double pneumonia, it started in May and finally he is able to breath normally. He gained 40 lbs since being sick. H/O Stroke in 2003, he went to [facility], completed rehab as his cognitive abilities were diminished, and weakness of left side, vocabulary, word finding dif ficulties, forgetful, flighty and anxious, gets frustrated with himself especially if his routine is changed. He must written down everything in order to stay on task procedurally. Denies migraines. Denies RLS, wears compression stockings due to bilateral pitting edema his LVEF is 65% and htn is not controlled on 2 meds. He goes to bed at 10pm, watches monologues until 4am and wakes up at 7am. Con tinues to have fragmented sleep. Pt reports he still wakes up frequently, tried melatonin 1mg and could not tolerate it due to feeling groggy, says he will try it again. He is independent in all his ADLs, the NEW ACCOUNT[employer] BANKING REPRESENTATIVE comes in 1x a week, to check on him and make sure he is completing all tasks. He denies smoking, uses MJ gummies recreationally, does not drink alcohol. [facility] Medical History Basal cell carcinoma of left eye Chest discomfort Lower respiratory infection (e.g., bronchitis, pneumonia, pneumonitis, pulmonitis) Pre-op examination Rash Blurring of vision Difficulty sleeping Skin infection, bacterial Right upper quadrant pain Wheezing on auscultation Chest wall pain Chest pain Pneumonia COVID-19 Physical exam Screening PSA (prostate specific antigen) Upset stomach Encounter for routine adult physical exam with abnormal findings Screening for colon cancer Medicare annual wellness visit, subsequent COVID-19 vaccine series completed Agoraphobia Anxiety Impaired fasting glucose GERD (gastroesophageal reflux disease) Depression TIA (transient ischemic attack) Sleep apnea Memory deficit Morbid obesity Toenail fungus Hypertension, essential Gait difficulty Surgical History S/P Mohs surgery for basal cell carcinoma H/O colonoscopy Hx of arthroscopic knee surgery Hx of appendectomy Hx of cholecystectomy History of esophagogastroduodenoscopy (EGD) Family History Sister Dementia Father Heart attack Other Substance use disorder Social History Housing: House Are you a primary healthcare advisory services manager to a significant other at home: No Do you presently have visiting nurse or other home services: No Alcohol intake: never Patient Tobacco Use Status: Former Tobacco user Tobacco use type: Cigarette e-Cigarette/Vaping Use: Never Used Second Hand Smoke Exposure: No Substance Use Type: Marijuana service: No Current occupational status: other Cognitive needs: No Hearing needs: No Vision needs: Yes Physical Exam Vital Signs: Last Vital Signs Pulse 71 09/24/24 10:22 Pulse Ox 97 09/24/24 10:22 Oxygen Delivery Method Room Air 09/24/24 10:22 BMI result Body Mass Index 53.7 Const General: cooperative Nutritional Appearance: obese (BMI is 53.7) morbidly obese Orientation/consciousness: patient oriented x3 Eyes Pupils: Equal, round and reactive pupils present Neck Neck: Yes full ROM Resp Effort & Inspection: normal respiratory effort and able to speak in complete sentences Neuro General: patient oriented x3 and moves all extremities Cranial nerves: Yes Facial sensation intact/muscles of mastication intact, Yes Equal, round and reactive pupils present, Yes Normal accommodation reflex present, Yes Normal facial strength present, Yes Midline tongue present, Yes Ability to bilaterally rotate head present and Yes Ability to bilaterally elevate shoulders present Gait exam (Neuro): Normal gait present Motor exam (neuro): 5/5 motor strength present throughout and Normal motor muscle tone present throughout Psych Thought process: Normal thought process present Thought content: Normal thought content present Results Reviewed Results Reviewed: NUBIA compliance report 06/2024- 09/2024 >4 hours 79 days and 88% Avg total use 5hours and 9min press [id number] Leaks 0-10 AHI is 5.0 Assessment & Plan Assessment & Plan (1) Obstructive sleep apnea on CPAP: Code(s): G47.33 - Obstructive sleep apnea (adult) (pediatric); Z99.89 - Dependence on other enabling machines and devices Category: Medical (2) Insomnia: Code(s): G47.00 - Insomnia, unspecified Category: Medical Qualifiers: Insomnia type: primary Qualified Code(s): F51.01 - Primary insomnia (3) Morbid obesity: Comment: weight management referral. Code(s): E66.01 - Morbid (severe) obesity due to excess calories Category: Medical Plan Continue to use CPAP at [id number], as patient has several cv comorbidities. Request labs from [facility]. to r/o deficiencies. B12, Vit D TSH, CBC, CMP Homocysteine and MMA. Advised patient to try melatonin 1 mg 1-3 tabs qhs to help him maintain sleep or will try BZRA at next visit. Start magnesium 400mg po daily at bedtime for erratic sleep patterns an practice sleep hygiene white noise no tv. Obesity refer to weight management for nutritional, lifestyle and diet management. Orders: Referrals Medical Weight Management Referral E66.01 - Morbid (severe) obesity due to excess calories, F32.9 - Major depressive disorder, single episode, unspecified, G47.33 - Obstructive sleep apnea (adult) (pediatric), G47.9 - Sleep disorder, unspecified, Z99.89 - Dependence on other enabling machines and devices Medications: New magnesium oxide take one tablet daily at night may hold for loose stools or take one every other night as tolerable. 400 mg PO DAILY 90 days 90 tabs 3RF insomnia MDD 400mg F51.01 - Primary insomnia Refilled compr.stocking,knee,long,x-lrg 15-20 compression 2 ea 2RF R60.0 - Localized edema Patient Instructions: Sleep Hygiene provided: set a scheduled bedtime and wake time to help regulate the circadian rhythm and balance the release of pituitary hormones. Sleep in a dark room, temperatures below 68 degrees, and no devices n bed. Limit caffeinated products 6 hours prior to bed, and limit fluids 2-4 hours prior to bed. Gentle night yoga, diffusing essential oils, and playing soft music can be relaxing. Wash mask, change tubing, replace filters, and fill reservoir with water. Coding Level of Care Code Est Pt Level 4 (05311) Diagnoses Obstructive sleep apnea on CPAP G47.33; Z99.89 Primary insomnia F51.01 Insomnia type: primary Morbid obesity E66.01 Time Spent (min) 30
[2024-09-24 10:22] VITALS: PULSE 71; O2SAT 97; BMI 53.7
--- OUTSIDE RECORDS SUMMARY | 2024-09-24 10:46 | XMS_ITS | Patient Health Record ---
Author Organization [facility] Address [address] [place] [address] Care Team Providers Care Network Technology Instructor Name Role Phone Rufino JUNE, [facility] Primary Care Provider Angel Guzman Jr Unavailable [phone] Allergies Allergen (clinical drug ingredient) Drug/Non Drug [...] Problem Status W/U Status Risk Notes Problem 173147388 Colon cancer screening (Z12.11) Active confirmed Problem 584568017 Gastro-esophagea l reflux disease without esophagitis (K21.9) Active confirmed Problem 29244599 Hypertension (I10) Active confirmed Problem 990529060 Gastroesophageal reflux disease with esophagitis without hemorrhage (K21.00) Active confirmed Plan Of Treatment Future Test Test Name Order Date COLONOSCOPY 02/28/2011 UPPER GI ENDOSCOPY 06/06/2016 COLONOSCOPY 08/03/2021 Insurance Providers Payer Name Payer Address Payer Phone Subscriber Number Group Number Insured Name Patient Relationship to Insured Coverage Start Date Coverage End Date MEDICARE OF [place] [address] [place] [id number] BELKIS FOOTE Self - patient is the insured MEDICAID OF [facility] [address] [place] [address] [id number] BELKIS FOOTE Self - patient is the insured Medical (General) History Medical History History ICD Code hypertension type II diabetes depression TIA 2003 NUBIA/CPAP Gastroesophageal reflux disease, EGD/17, mild distal esophagitis Surgical History Surgery Date(Month/Year) cholecystectomy appendectomy arthroscopic knee surgery
== END 2024-09-24 11:31 | disposition home or self-care (01) ==
LOC: HO.HSMS 10:17
PROVIDERS: PCP Nurse Practitioner Family; Visit Provider Physician Assistant Medical
DX: G47.33 Obstructive sleep apnea (adult) (pediatric) (principal); Z99.89 Dependence on other enabling machines and devices; F51.01 Primary insomnia; E66.01 Morbid (severe) obesity due to excess calories
CPT/HCPCS: 99214

== ENCOUNTER → 2024-09-24 10:17 | Outpatient (BNVA) | payer MEDICARE, MEDICAID, SELFPAY | PROVIDERS: PCP Nurse Practitioner Family; Visit Provider Physician Assistant Medical | DX: G47.33 Obstructive sleep apnea (adult) (pediatric) (principal); F32.9 Major depressive disorder, single episode, unspecified; F51.01 Primary insomnia; E66.01 Morbid (severe) obesity due to excess calories; Z68.43 Body mass index [BMI] 50.0-59.9, adult; Z99.89 Dependence on other enabling machines and devices | CPT/HCPCS: 99212 ==

== ENCOUNTER → 2024-10-29 09:42 | Outpatient (BNVA) | payer MEDICARE, MEDICAID, SELFPAY | PROVIDERS: PCP Nurse Practitioner Family; Visit Provider Surgery | DX: Z13.89 Encounter for screening for other disorder (principal) ==

== ENCOUNTER 2024-12-16 09:11 | Outpatient (AMB) | payer MEDICARE, MEDICAID, SELFPAY ==
--- NOTE | 2024-12-16 09:20 | A.OFFPC_ITS ---
Vital Signs 12/16/24 09:23 Height 6 ft 1 in Weight 414 lb BMI 54.6 BP 140/82 H Blood Pressure Location Lt brachial Position Sitting Respiration 16 Pulse 86 Pulse Source Pulse Oximeter Pulse Oximetry (%) 98 Oxygen Delivery Method Room Air Intake Visit Reasons: PE/ok per secondary insurance Court Commissioner Required: No Accompanied by: Self / Same As Patient Allergies codeine (CODEINE) Allergy (Severe, Verified 12/16/24 09:48) ANAPHYLAXIS, hives adhesive tape Adverse Reaction (Mild, Verified 12/16/24 09:48) Irritable dust Allergy (Unknown, Uncoded 12/16/24 09:48) swelling Medication List - Last Reconciled 12/16/24 by Chucho Ortiz, [facility]- amlodipine 10 mg PO DAILY 90 days compr.stocking,knee,long,x-lrg 15-20 compression lisinopril 10 mg PO DAILY magnesium oxide 400 mg PO DAILY 90 days Tobacco use date assessed: 12/16/24 Fall risk assessment: No Falls in past year Last assessed Fall Risk: 12/16/24 Dental Screening Dental Screen Date: 12/16/24 Did you have a dental visit in the last 12 months?: Yes Did you have a dental problem in the last 6 months where you did not have access to dental care?: No Was dental information given to patient?: Patient has dentist HPI PE/ok per secondary insurance HPI Details History of Present Illness The patient is a 64-year-old male presenting for a physical examination. He has a history of anxiety and depression, currently exacerbated by his girlfriend's stress, leading to increased anxiety levels. He denies any suicidal or homicidal ideation. The patient reports memory loss, ongoing since a cerebrovascular accident many years ago. He is grossly obese and is being considered for treatment with a GLP-1 agonist, specifically Wegovy, to address his obesity. He denies any family history of pancreatitis or thyroid carcinoma. The patient experiences dyspnea on exertion but denies any chest pain. He uses a CPAP machine for sleep apnea and is due for a titration study. He reports urinary issues, including post-void dribbling, but only nocturia once per night. His PSA levels were normal in the past year, but a recheck is planned, and a future urology consultation is considered though the patient is not currently interested. Preventative care includes a colon cancer screening, and coordination with gastroenterology is planned to determine the timing of his next screening. pt does see a fleet administrator. Health Maintenance - Colon cancer screening coordination [facility] gastroenterology - Sleep apnea management with CPAP and p lanned titration study Social History - Reports increased anxiety due to mone boogie's stress Review of Systems - Psychiatric: Reports anxiety, denies s uicidal or homicidal ideation - Neurological: Reports memory loss - Respiratory: Reports dyspnea on exerti on, denies chest pain - Genitourinary: Reports post-void dribb ling, nocturia once per night Physical Exam General: Anxious demeanor, grossly obese Orientation: Patient oriented x3, some memory loss Limitations: No limitations Head: Normal to inspection Ears: Hearing grossly normal bilaterally Nose: Normal external nose present Face and sinus: Normal facial exam Eyes: Appearance normal, both eyes and all related structures Neck: Normal visual inspection and Yes full ROM Respiratory: Normal respiratory effort and able to speak in complete sentences. Clear to auscultation bilaterally, shortness of breath on exertion Cardiovascular: Regular rate and rhythm. Normal S1 and S2, no carotid bruits noted GI: Normal to inspection. Soft to palpation and nontender Skin: No rashes or lesions noted Neuro: Patient oriented x3, some memory loss Extremities: Normal to inspection Results - Labs: PSA within normal limits in the past year Plan The patient will be started on a GLP-1 agonist, specifically Wegovy, to address his obesity, given the absence of family history of pancreatitis or thyroid carcinoma. Behavioral health intervention is planned to address his anxiety and depression, exacerbated by external stressors. A repeat PSA test is planned, and a future urology consultation is considered for his urinary issues, although the patient is not currently interested in seeing a urologist. The patient will continue using his CPAP machine, and a titration study is vimal nned to optimize his sleep apnea management. Coordination with gastroenterology will be undertaken to determine the timing of his next colon cancer screening. Discussion Notes I discussed with the patient the initiation of a GLP-1 agonist, Wegovy, for obesity management, emphasizing the absence of family history of pancreatitis or thyroid carcinoma as favorable factors. We also talked about the importance of addressing his anxiety and depression through behavioral health support, and I will facilitate a referral to our specialist. I advised a repeat PSA test and discussed the potential need for a urology consultation for his urinary symptoms, although he is not currently interested. We agreed on the necessity of a CPAP titration study to optimize his sleep apnea treatment. Finally, I will coordinate with gastroenterology to ensure timely colon cancer screening. Patient Instructions - Start Wegovy as prescribed for weight management. - Attend behavioral health sessions as s cheduled. - Continue using CPAP machine nightly an d await titration study appointment. - Follow up with gastroenterology for co fatimah cancer screening schedule. - Monitor urinary symptoms and consider future urology consultation if needed. [facility] Medical History Basal cell carcinoma of left eye Chest discomfort Lower respiratory infection (e.g., bronchitis, pneumonia, pneumonitis, pulmonitis) Pre-op examination Rash Blurring of vision Difficulty sleeping Skin infection, bacterial Right upper quadrant pain Wheezing on auscultation Chest wall pain Chest pain Pneumonia COVID-19 Physical exam Screening PSA (prostate specific antigen) Upset stomach Encounter for routine adult physical exam with abnormal findings Screening for colon cancer Medicare annual wellness visit, subsequent COVID-19 vaccine series completed Agoraphobia Anxiety Impaired fasting glucose GERD (gastroesophageal reflux disease) Depression TIA (transient ischemic attack) Sleep apnea Memory deficit Morbid obesity Toenail fungus Hypertension, essential Gait difficulty Surgical History S/P Mohs surgery for basal cell carcinoma H/O colonoscopy Hx of arthroscopic knee surgery Hx of appendectomy Hx of cholecystectomy History of esophagogastroduodenoscopy (EGD) Family History Sister Dementia Father Heart attack Other Substance use disorder Social History Housing: House Are you a primary manager home healthcare to a significant other at home: No Do you presently have visiting nurse or other home services: No Alcohol intake: current Alcohol intake frequency: holidays/special occasions on ly Patient Tobacco Use Status: Former Tobacco user Tobacco use type: Cigarette e-Cigarette/Vaping Use: Never Used Second Hand Smoke Exposure: No Substance Use Type: Marijuana service: No Current occupational status: other Cognitive needs: No Hearing needs: No Vision needs: Yes Questionnaire PHQ-9 Over the last 2 weeks, how often have you been bothered by any of the following problems? 53308 - PHQ-9 Billing: Patient declined-do not bill Source: Developed by Drs. Srinivasan Valdez, Whit Vogt, Travon Gunn and colleagues, with an educational tahira from [employer]. Thrive Questionnaire Date Thrive assessed: 05/19/24 I am a: Patient What is your living situation today?: I choose not to answer this question Within the past 12 months, did the food you bought not last and you didn't have the money to get more?: I choose not to answer this question Within the past 12 months, did you worry whether your food would run out before you got money to buy more?: I choose not to answer this question Do you have trouble paying for medicines?: I choose not to answer this question Do you have trouble getting transportation to medical appointments?: I choose not to answer this question Do you have trouble paying your heating and electricity bill?: I choose not to answer this question Do you have trouble taking care of your child, family member or friend?: I choose not to answer this question Do you have trouble with day-to-day activities such as bathing, preparing meals, shopping, managing finances, etc.?: I choose not to answer this question Are you currently unemployed and looking for a job?: I choose not to answer this question Are you interested in more education?: I choose not to answer this question Please select the resources that you would like help with: None Currently or been in a relationship where the following occur: I choose not to answer THRIVE Score: 0 MAICOL-7 AMB Questionnaire MAICOL-7 Date MAICOL - 7 assessed: 09/21/24 Source: Developed by Drs. Srinivasan Valdez, Whit Vogt, Travon Gunn and colleagues, with an educational tahira from [employer]. Physical exam (Primary Care) Vital Signs: Last Vital Signs Pulse 86 12/16/24 09:23 Resp 16 12/16/24 09:23 BP 140/82 H 12/16/24 09:23 Pulse Ox 98 12/16/24 09:23 Oxygen Delivery Method Room Air 12/16/24 09:23 BMI result Body Mass Index 54.6 Tobacco/Smoking Status: Tobacco use Status Tobacco use date assessed 12/16/24 12/16/24 09:28 Patient Tobacco Use Status Former Tobacco user 12/16/24 09:24 Tobacco use type Cigarette 12/16/24 09:24 e-Cigarette/Vaping Use Never Used 12/16/24 09:24 Thrive Assessment: Date of Thrive Assessment Date Thrive assessed 05/19/24 12/16/24 09:24 Currently or been in a relationship where the following occur: I choose not to answer Coding Level of Care Code Est Pt Prev Care >65y(44915) Diagnoses Obstructive sleep apnea on CPAP G47.33; Z99.89 Encounter for routine adult physical exam with abnormal findings Z00. Screening PSA (prostate specific antigen) Z12.5 Assessment & Plan Assessment & Plan (1) Obstructive sleep apnea on CPAP: Code(s): G47.33 - Obstructive sleep apnea (adult) (pediatric); Z99.89 - Dependence on other enabling machines and devices Category: Medical (2) Encounter for routine adult physical exam with abnormal findings: Code(s): Z00.01 - Encounter for general adult medical examination with abnormal findings Category: Medical (3) Screening PSA (prostate specific antigen): Code(s): Z12.5 - Encounter for screening for malignant neoplasm of prostate Category: Medical Plan . Orders: Orders TSH reflex Free T4 Today Z00.01 - Encounter for general adult medical examination with abnormal findings UA CC w/rflx Micro + Cult Today Z00.01 - Encounter for general adult medical examination with abnormal findings Complete Blood Count Auto Diff Today Z00.01 - Encounter for general adult medical examination with abnormal findings Comprehensive [place]. Panel Fast Today Z00.01 - Encounter for general adult medical examination with abnormal findings Lipid Panel Today Z00.01 - Encounter for general adult medical examination with abnormal findings Prostate Specific Antigen Scr Today Z12.5 - Encounter for screening for malignant neoplasm of prostate Referrals Sleep Medicine Referral G47.33 - Obstructive sleep apnea (adult) (pediatric), Z99.89 - Dependence on other enabling machines and devices Medications: New semaglutide (weight loss) (Wegovy) administer weeks 1 through 4 of therapy 0.25 mg (0.5 mL) subcut QWEEK 2 mL 0RF
[2024-12-16 09:23] VITALS: BP 140/82; PULSE 86; RESP 16; O2SAT 98; BMI 54.6
== END 2024-12-16 10:21 | disposition home or self-care (01) ==
LOC: HO.HMCC 09:12
PROVIDERS: PCP Nurse Practitioner Family; Visit Provider Nurse Practitioner Family
DX: Z00.01 Encounter for general adult medical examination with abnormal findings (principal); G47.33 Obstructive sleep apnea (adult) (pediatric); Z99.89 Dependence on other enabling machines and devices; Z12.5 Encounter for screening for malignant neoplasm of prostate

== ENCOUNTER → 2024-12-16 09:11 | Outpatient (BNVA) | payer MEDICARE, MEDICAID, SELFPAY | PROVIDERS: PCP Nurse Practitioner Family; Visit Provider Nurse Practitioner Family | DX: Z00.01 Encounter for general adult medical examination with abnormal findings (principal); G47.33 Obstructive sleep apnea (adult) (pediatric); Z99.89 Dependence on other enabling machines and devices; I10 Essential (primary) hypertension | CPT/HCPCS: 99397 ==

== ENCOUNTER 2024-12-31 10:59 | Outpatient (AMB) | payer MEDICARE, MEDICAID, SELFPAY ==
--- NOTE | 2024-12-31 11:40 | A.OFFVIS_ITS ---
Vital Signs 12/31/24 11:41 Height 6 ft 1 in Weight 406 lb 2 oz BMI 53.6 BP 146/72 H Blood Pressure Location Lt femoral Position Sitting Pulse 82 Pulse Source Pulse Oximeter Pulse Oximetry (%) 97 Oxygen Delivery Method Room Air Intake Visit Reasons: follow up Intake Note: Patient presents follow up NUBIA. WM seen 10/29-Compliance in chart(90/90days, >=4hrs- 97%, Average Usage-5hr 19min, Pressure-10cm, Med Leaks-0.0, AHI-7.3) Patient states tired all the time. Depression. Accompanied by: Self / Same As Patient Allergies codeine (CODEINE) Allergy (Severe, Verified 12/31/24 11:43) ANAPHYLAXIS, hives adhesive tape Adverse Reaction (Mild, Verified 12/31/24 11:43) Irritable dust Allergy (Unknown, Uncoded 12/16/24 09:48) swelling HPI Comments Details: 64 y/o male patient presents for follow up of NUBIA on CPAP. Split night study c/w: Severe NUBIA The AHI was 74/hr and oxygen bernardino was 83%. Pt was trialed on CPAP [id number], breathing and oxygenation stabilized on CPAP at [id number]. NUBIA Compliance Report 10/2024 - 12/2024 Total usage 90/90days, >=4hrs- 97%, Avg Usage-5hr 19min Pressure-10cm, Med Leaks-0.0, AHI-7.3 He washes his mask, rinses hoses, changes filters and fills reservoir with water. His AHI is elevated and he will f/u with his sleep company re-adjusting the settings on his machine as he does not wish to go in for another in lab sleep study for titration. Patient states he is chronically fatigue and depressed though the depression is manageable. He lost 8lbs since last visit and BMI is 53.6, he would like to be started on Zepbound. Post h/o of stroke, cognitive abilities declined, with continued left sided weakness, vocabulary and word finding difficulties. He gets frustrated with himself especially if his routine is changed, coming to appts can be stressful due to transportation. He must write everything down in order to stay on task procedurally. He feels less anxious with MJ gummies at dinner time. Denies migraines. Denies RLS symptoms. He wears compression stockings due to bilateral pitting edema today htn is not well managed on 2 meds. He goes to bed at 10pm, watches monologues until 4am and wakes up at 7am. Continues to have fragmented sleep. Pt reports he still wakes up frequently to go to the bathroom and plans to f/u with urology. He tried melatonin 1mg and could not tolerate it due to feeling groggy the next morning. He is independent in all his ADLs, the MANAGER OF COMMUNITY RELATIONS comes in 1x a week, to check on him and make sure he is completing all tasks. Pt request zepbound and weight management with [facility] registered nursing professor/ chassis wirer. [facility] Medical History Screening PSA (prostate specific antigen) Encounter for routine adult physical exam with abnormal findings Basal cell carcinoma of left eye Chest discomfort Lower respiratory infection (e.g., bronchitis, pneumonia, pneumonitis, pulmonitis) Pre-op examination Rash Blurring of vision Difficulty sleeping Skin infection, bacterial Right upper quadrant pain Wheezing on auscultation Chest wall pain Chest pain Pneumonia COVID-19 Physical exam Upset stomach Screening for colon cancer Medicare annual wellness visit, subsequent COVID-19 vaccine series completed Agoraphobia Anxiety Impaired fasting glucose GERD (gastroesophageal reflux disease) Depression TIA (transient ischemic attack) Sleep apnea Memory deficit Morbid obesity Toenail fungus Hypertension, essential Gait difficulty Surgical History S/P Mohs surgery for basal cell carcinoma H/O colonoscopy Hx of arthroscopic knee surgery Hx of appendectomy Hx of cholecystectomy History of esophagogastroduodenoscopy (EGD) Family History Sister Dementia Father Heart attack Other Substance use disorder Social History Housing: House Are you a primary career representative to a significant other at home: No Do you presently have visiting nurse or other home services: No Alcohol intake: current Alcohol intake frequency: holidays/special occasions only Patient Tobacco Use Status: Former Tobacco user (over 20 years ago he quit) Tobacco use type: Cigarette e-Cigarette/Vaping Use: Never Used Second Hand Smoke Exposure: No Substance Use Type: Marijuana service: No Current occupational status: other Cognitive needs: No Hearing needs: No Vision needs: Yes Physical Exam Vital Signs: Last Vital Signs Pulse 82 12/31/24 11:41 BP 146/72 H 12/31/24 11:41 Pulse Ox 97 12/31/24 11:41 Oxygen Delivery Method Room Air 12/31/24 11:41 BMI result Body Mass Index 53.6 Const General: cooperative Nutritional Appearance: obese (BMI is 53.7) morbidly obese Orientation/consciousness: patient oriented x3 Eyes Pupils: Equal, round and reactive pupils present Neck Neck: Yes full ROM Resp Effort & Inspection: normal respiratory effort and able to speak in complete sentences Neuro General: patient oriented x3 and moves all extremities Cranial nerves: Yes Facial sensation intact/muscles of mastication intact, Yes Equal, round and reactive pupils present, Yes Normal accommodation reflex present, Yes Normal facial strength present, Yes Midline tongue present, Yes Ability to bilaterally rotate head present and Yes Ability to bilaterally elevate shoulders present Gait exam (Neuro): Normal gait present Motor exam (neuro): 5/5 motor strength present throughout and Normal motor muscle tone present throughout Psych Appearance: grossly normal Mental Status: mental status grossly normal Thought process: Normal thought process present Thought content: Normal thought content present Results Reviewed Results Reviewed: NUBIA Compliance Report 10/2024 - 12/2024 Total usage 90/90days, >=4hrs- 97%, Avg Usage-5hr 19min Pressure-10cm, Med Leaks-0.0, AHI-7.3 Assessment & Plan Assessment & Plan (1) Obstructive sleep apnea on CPAP: Code(s): G47.33 - Obstructive sleep apnea (adult) (pediatric); Z99.89 - Dependence on other enabling machines and devices Category: Medical (2) Insomnia: Code(s): G47.00 - Insomnia, unspecified Category: Medical Qualifiers: Insomnia type: primary Qualified Code(s): F51.01 - Primary insomnia (3) Morbid obesity: Comment: weight management referral to cele as [facility] weight management were very rude to him. Code(s): E66.01 - Morbid (severe) obesity due to excess calories Category: Medical Plan Continue to use CPAP at [id number], as patient experiences restful sleep. Pt instructed to address the settings on his machine as AHI is 7.9 and will need to adjust his cpap pressures in his settings as he is not comfortable going in for another in lab sleep study due to socioeconomic factors of transportation. HTN bp is elevated we discussed f/u with PCP for med adjustment, as pt has a h/o stroke. Labs reviewed with pt. today continue magnesium 400mg po daily at bedtime. and practice good sleep hygiene. Advised patient to try melatonin 1 mg 1-3 tabs qhs to help him maintain sleep or will try BZRA at next visit, declines today. BMI is elevated refer to weight management for nutrition and lifestyle / diet management. Orders: Referrals Medical Weight Management Referral E66.01 - Morbid (severe) obesity due to excess calories Patient Instructions: Sleep Hygiene provided: set a scheduled bedtime and wake time to help regulate the circadian rhythm and balance the release of pituitary hormones. Sleep in a dark room, temperatures below 68 degrees, and no devices n bed. Limit caffeinated products 6 hours prior to bed, and limit fluids 2-4 hours prior to bed. Gentle night yoga, diffusing essential oils, and playing soft music can be relaxing. Coding Level of Care Code Est Pt Level 4 (48312) Diagnoses Obstructive sleep apnea on CPAP G47.33; Z99.89 Primary insomnia F51.01 Insomnia type: primary Morbid obesity E66.01
[2024-12-31 11:41] VITALS: BP 146/72; PULSE 82; O2SAT 97; BMI 53.6
--- OUTSIDE RECORDS SUMMARY | 2024-12-31 12:23 | XMS_ITS | Patient Health Record ---
Author Organization [facility] Address [address] [place] [address] Care Team Providers Care Combination Machine Tool Operator Name Role Phone Rufino JUNE, [facility] Primary Care Provider Angel Guzman Jr Unavailable [phone] Allergies Allergen (clinical drug ingredient) Drug/Non [...] Problem Status W/U Status Risk Notes Problem 901013073 Colon cancer screening (Z12.11) Active confirmed Problem 963992230 Gastro-esophagea l reflux disease without esophagitis (K21.9) Active confirmed Problem 64378892 Hypertension (I10) Active confirmed Problem 052756208 Gastroesophageal reflux disease with esophagitis without hemorrhage (K21.00) Active confirmed Plan Of Treatment Future Test Test Name Order Date COLONOSCOPY 02/28/2011 UPPER GI ENDOSCOPY 06/06/2016 COLONOSCOPY 08/03/2021 Insurance Providers Payer Name Payer Address Payer Phone Subscriber Number Group Number Insured Name Patient Relationship to Insured Coverage Start Date Coverage End Date MEDICARE OF [place] [address] [place] [address] [id number] BELKIS FOOTE Self - patient is the insured MEDICAID OF [facility] [address] [place] [address] [id number] BELKIS FOOTE Self - patient is the insured Medical (General) History Medical History History ICD Code hypertension type II diabetes depression TIA 2003 NUBIA/CPAP Gastroesophageal reflux disease, EGD/17, mild distal esophagitis Surgical History Surgery Date(Month/Year) cholecystectomy appendectomy arthroscopic knee surgery
== END 2024-12-31 12:46 | disposition home or self-care (01) ==
LOC: HO.HSMS 11:00
PROVIDERS: PCP Nurse Practitioner Family; Visit Provider Physician Assistant Medical
DX: G47.33 Obstructive sleep apnea (adult) (pediatric) (principal); Z99.89 Dependence on other enabling machines and devices; F51.01 Primary insomnia; E66.01 Morbid (severe) obesity due to excess calories
CPT/HCPCS: 99214

== ENCOUNTER → 2024-12-31 10:59 | Outpatient (BNVA) | payer MEDICARE, MEDICAID, SELFPAY | PROVIDERS: PCP Nurse Practitioner Family; Visit Provider Physician Assistant Medical | DX: G47.33 Obstructive sleep apnea (adult) (pediatric) (principal); F51.01 Primary insomnia; E66.01 Morbid (severe) obesity due to excess calories; Z99.89 Dependence on other enabling machines and devices; Z68.43 Body mass index [BMI] 50.0-59.9, adult | CPT/HCPCS: 99212 ==

== ENCOUNTER 2025-03-08 08:13 | Outpatient (AMB) | payer MEDICARE, MEDICAID, SELFPAY ==
--- NOTE | 2025-03-08 08:28 | MHC.OFFVIS ---
Vital Signs 03/08/25 08:29 Height 6 ft 1 in Weight 401 lb 3.861 oz BMI 52.9 BP 130/68 Blood Pressure Location Lt brachial Position Sitting Pulse 70 Pulse Source Pulse Oximeter Intake Visit Reasons: 4 month f/up Allergies codeine (CODEINE) Allergy (Severe, Verified 12/31/24 11:43) ANAPHYLAXIS, hives adhesive tape Adverse Reaction (Mild, Verified 12/31/24 11:43) Irritable dust Allergy (Unknown, Uncoded 12/16/24 09:48) swelling Medication List - Last Reconciled 03/08/25 by Dl Sesay MD amlodipine 10 mg PO DAILY 90 days compr.stocking,knee,long,x-lrg 15-20 compression lisinopril 20 mg PO DAILY magnesium oxide 400 mg PO DAILY 90 days HPI Comments Details: Chucho returns for follow-up regarding chest pains. In the past, he was having respiratory issues with COVID as well as pneumonia. After that he started having right-sided chest pain that was worse with breathing. During the last visit, he stated that the pain completely resolved but currently, he states he is again feeling some tightness which is very vague in description. Personally he feels as if it is related to his lungs are not the heart. There is no prior history of any coronary disease myocardial infarction. He is morbidly obese. Has NUBIA and CPAP. He states that he has family moved to [place] and that is put him under lot of stress. [facility] Medical History Screening PSA (prostate specific antigen) Encounter for routine adult physical exam with abnormal findings Basal cell carcinoma of left eye Chest discomfort Lower respiratory infection (e.g., bronchitis, pneumonia, pneumonitis, pulmonitis) Pre-op examination Rash Blurring of vision Difficulty sleeping Skin infection, bacterial Right upper quadrant pain Wheezing on auscultation Chest wall pain Chest pain Pneumonia COVID-19 Physical exam Upset stomach Screening for colon cancer Medicare annual wellness visit, subsequent COVID-19 vaccine series completed Agoraphobia Anxiety Impaired fasting glucose GERD (gastroesophageal reflux disease) Depression TIA (transient ischemic attack) Sleep apnea Memory deficit Morbid obesity Toenail fungus Hypertension, essential Gait difficulty Surgical History S/P Mohs surgery for basal cell carcinoma H/O colonoscopy Hx of arthroscopic knee surgery Hx of appendectomy Hx of cholecystectomy History of esophagogastroduodenoscopy (EGD) Family History Sister Dementia Father Heart attack Other Substance use disorder Social History Housing: House Are you a primary school child care attendant to a significant other at home: No Do you presently have visiting nurse or other home services: No Alcohol intake: current Alcohol intake frequency: holidays/special occasions only Patient Tobacco Use Status: Former Tobacco user (over 20 years ago he quit) Tobacco use type: Cigarette e-Cigarette/Vaping Use: Never Used Second Hand Smoke Exposure: No Substance Use Type: Marijuana service: No Current occupational status: other Cognitive needs: No Hearing needs: No Vision needs: Yes Review of Systems Const Denies weakness ENT Denies dizziness Card Denies chest pain, Denies chest pain with activity, Denies syncope, Denies rapid heart rate, Denies pedal edema, Denies edema, Denies leg edema, Denies lightheadedness, Denies palpitations, Denies dyspnea, Denies dyspnea on exertion and Denies orthopnea Resp Denies cough, Denies dyspnea and Denies dyspnea on exertion GI Denies hematochezia and Denies change in stool character Musc Denies abnormal gait, Denies muscle cramps, Denies muscle weakness, Denies numbness, Denies radiating pain into limb and Denies tingling Neuro Denies abnormal gait, Denies dizziness, Denies syncope, Denies numbness, Denies tingling and Denies weakness Endo Denies palpitations Physical Exam Vital Signs: Last Vital Signs Pulse 70 03/08/25 08:29 BP 130/68 03/08/25 08:29 BMI result Body Mass Index 52.9 Const General: comfortable and no acute distress Orientation/consciousness: patient oriented x3 HEENT Other: Unremarkable Head: Yes normal to inspection Neck Neck: Yes normal visual inspection Chest Chest palpation & inspection: normal inspection of the chest Resp Auscultation: clear to auscultation bilaterally Cardio Palpation: normal PMI Heart sounds: S1 normal heart sound present, S2 normal heart sound present, no gallops, no murmurs and no rubs GI Palpation (GI): Soft to palpation Back/Spine/Pelvis Other: unremarkable Skin General skin exam: no rashes or lesions noted Neuro General: patient oriented x3 Extrem General: Yes normal to inspection Psych Mental Status: mental status grossly normal Assessment & Plan Assessment & Plan (1) Chest discomfort: Comment: upon inhalation mostly Code(s): R07.89 - Other chest pain Category: Medical Plan: In the echocardiogram, LVEF is 60-65%. No significant valvular findings. In the perfusion imaging, thought to be equivocal for inferior ischemia. However, I reviewed the images and most likely within normal limits. His body habitus may play a role in findings. In the past, thought to be pleuritic sounding and related to respiratory infection but we will need to clarify further as he is still has some vague symptoms. We will get a coronary CTA. (2) PVC (premature ventricular contraction): Code(s): I49.3 - Ventricular premature depolarization Category: Medical Plan: EKG shows premature ventricular contractions. Clinically, he has got no symptoms from this. As above, echocardiogram/stress test findings are reassuring. Suspect related to obesity and obstructive sleep apnea. If indeed he can lose weight that will tremendously help. CPAP compliance. (3) Hypertension, essential: Code(s): I10 - Essential (primary) hypertension Category: Medical Plan: On amlodipine, lisinopril. Plan Discussion Notes I discussed with the patient the need for a coronary CT scan to ensure there are no underlying cardiac issues contributing to his symptoms. We also talked about the possibility of his symptoms being related to pulmonary issues, potentially linked to his previous COVID-19 infection. The patient is advised to continue his efforts in weight loss and dietary improvements. Patient was informed and verbally consented to the use of an ambient scribe for clinic note documentation during this visit. Orders: Orders CT Cardiac Coronary Angio Today I25.10 - Atherosclerotic heart disease of [place] coronary artery without angina pectoris, R07.89 - Other chest pain Basic Metabolic Panel Today R07.89 - Other chest pain Patient Instructions: - Schedule a coronary CT scan as discussed. - Continue with weight loss efforts and maintain a healthy diet. - Monitor symptoms and report any worsening or new symptoms. Coding Level of Care Code Est Pt Level 4 (44045) Complex EM visit Add On G2211 Diagnoses Chest discomfort R07.89 PVC (premature ventricular contraction) I49.3 Hypertension, essential I10
--- OUTSIDE RECORDS SUMMARY | 2025-03-08 08:28 | XMS_ITS | Clinical Summary ---
Author Organization [address] [facility] Address [address] [place] [address] Phone Care Team Providers Care Security Professionals Name Role Phone Desean Campbell Primary Care Provider [phone] Social History Tobacco Use Types Packs/Day Years Used Date Smoking Tobacco: Never Assessed Sex and Gender Information Value Date Recorded Sex Assigned at Not on file Legal Sex Male 12:02 PM EDT Gender Identity Not on file Sexual Orientation Not on file Plan of Treatment Upcoming Encounters Date Type Department Care Team ([facility] Contact Info) Description 03/19/2025 2:00 PM EST Consult Bariatric Surgery - [place] [address] [facility] [address] [place] [address] Gilberto Romero MD [address] [place] [address] Health Maintenance Due Date Last Done Comments Colorectal Cancer Screening: Colonoscopy 1958 DTaP,Tdap,and Td Vaccines (1 - Tdap) 1977 Pneumococcal Vaccine: 50+ Ye ars (1 of 1 - PCV) 2008 Zoster Vaccines (1 of 2) 2008 Depression Screening 05/06/2024 Abdominal Aortic Aneurysm (A AA) Screen 01/01/2025 Cholesterol Screening (Lipid Panel) 01/01/2025 Falls Risk Assessment 01/01/2025 Hepatitis C Screening 01/01/2025 Medicare Annual Wellness Visit 01/01/2025 Social Influencers of Health Screening 01/01/2025 COVID-19 Vaccine (1 - 2023-2 5 season) 2025 Influenza Vaccine (#1) 2025 RSV Immunization Adult Patie nts (1 - 1-dose 75+ series) 2033 HIB Vaccines Aged Out No longer eligi ble based on patient's age to complete this topic HPV Vaccines Aged Out No longer eligi ble based on patient's age to complete this topic Hepatitis A Vaccines Aged Out No long er eligible based on patient's age to complete this topic Hepatitis B Vaccines Aged Out No long er eligible based on patient's age to complete this topic IPV Vaccines Aged Out No longer eligi ble based on patient's age to complete this topic MMR Vaccines Aged Out No longer eligi ble based on patient's age to complete this topic Meningococcal ACWY Vaccine Aged Out N o longer eligible based on patient's age to complete this topic Meningococcal B Vaccine Aged Out No l onger eligible based on patient's age to complete this topic RSV Immunization Patients Un tori 20 months Aged Out No longer eligible b ased on patient's age to complete this topic Varicella Vaccines Aged Out No longer eligible based on patient's age to complete this topic Insurance MEDICARE MEDICAID - [place] Care Teams Security Professionals Relationship Specialty Start Date End Date Desean Campbell PA [address] [place] [address] [facility] - General 01/01/25
--- OUTSIDE RECORDS SUMMARY | 2025-03-08 08:28 | XMS_ITS | Patient Health Record ---
Author Organization [facility] Address [address] [place] [address] Care Team Providers Care Handhole Machine Operator Name Role Phone Rufino JUNE, [facility] Primary Care Provider Angel Guzman Jr Unavailable [phone] Allergies Allergen (clinical drug ingredient) Drug/Non Drug Allergy documented on EMR Reaction Allergy Type Onset Date Status codeine codeine (uncoded) Unknown Allergy Ac tive Reason For Referral No Information Medications Medication SIG (Take, Route, Frequency, Duration) Notes Start Date End Date Status Lisinopril 5 MG TAKE 1 TABLET BY KRZYSZTOF TH DAILY Oral; Duration: 90 Active amLODIPine Besylate 10 MG Oral; Duration: 90 Active MiraLax (colon prep) 17 GM/SCOOP mixed with Gatorade or Crystal Light Orally begin at 5:00 p.m. the day before the procedure; Duration: 1 day 08/03/2021 Active Immunizations Vaccine Route [...] Problem Status W/U Status Risk Notes Problem Colon cancer screening (643158532) Colon cancer screening (Z12.11) Active confirmed Problem Gastro-esophageal reflux disease without esophagitis (115682906) Gastro-esophageal reflux disease without esophagitis (K21.9) Active confirmed Problem Hypertension (76074911) Hypertension (I10) Active confirmed Problem Gastroesophageal reflux disease with esophagitis (disorder) (144760437) Gastroesophageal reflux disease with esophagitis without hemorrhage (K21.00) Active confirmed Plan Of Treatment Future Test Test Name Order Date COLONOSCOPY 02/28/2011 UPPER GI ENDOSCOPY 06/06/2016 COLONOSCOPY 08/03/2021 Insurance Providers Payer Name Payer Address Payer Phone Subscriber Number Group Number Insured Name Patient Relationship to Insured Coverage Start Date Coverage End Date MED[place]ARE OF [place] [address] [place] [address] [id number] BELKIS FOOTE Self - patient is the insured MEDICAID OF [facility] [address] [place] [address] [phone] [id number] BELKIS FOOTE Self - patient is the insured Medical (General) History Medical History History ICD Code hypertension type II diabetes depression TIA 2003 NUBIA/CPAP Gastroesophageal reflux disease, EGD/17, mild distal esophagitis Surgical History Surgery Date(Month/Year) cholecystectomy appendectomy arthroscopic knee surgery
[2025-03-08 08:29] VITALS: BP 130/68; PULSE 70; BMI 52.9
== END 2025-03-08 09:02 | disposition home or self-care (01) ==
LOC: HO.HCS 08:14
PROVIDERS: PCP Nurse Practitioner Family; Visit Provider Internal Medicine
DX: R07.89 Other chest pain (principal); I49.3 Ventricular premature depolarization; I10 Essential (primary) hypertension
CPT/HCPCS: 99214; G2211

== ENCOUNTER → 2025-03-08 08:13 | Outpatient (BNVA) | payer MEDICARE, MEDICAID, SELFPAY | PROVIDERS: PCP Nurse Practitioner Family; Visit Provider Internal Medicine | DX: I10 Essential (primary) hypertension (principal); R07.89 Other chest pain; I49.3 Ventricular premature depolarization; Z87.891 Personal history of nicotine dependence; G47.33 Obstructive sleep apnea (adult) (pediatric); Z99.89 Dependence on other enabling machines and devices; E66.01 Morbid (severe) obesity due to excess calories; Z68.43 Body mass index [BMI] 50.0-59.9, adult | CPT/HCPCS: 99212 ==

== ENCOUNTER 2025-04-08 08:56 | Outpatient (REF) | payer MEDICARE, MEDICAID, SELFPAY ==
--- OUTSIDE RECORDS SUMMARY | 2025-04-08 09:41 | XMS_ITS | Patient Health Record ---
Author Organization [facility] Address [address] [place] [address] Care Team Providers Care Endocrinology Physician Name Role Phone Rufino JUNE, [facility] Primary Care Provider Angel Guzman Jr Unavailable Allergies Allergen (clinical drug ingredient) Drug/Non Drug Allergy documented on EMR Reaction Allergy Type Onset Date Status codeine codeine (uncoded) Unknown Allergy Ac tive Reason For Referral No Information Medications Medication SIG (Take, Route, Frequency, Duration) Notes Start Date End Date Status Lisinopril 5 MG Tablet TAKE 1 TABLET BY MOUTH DAILY Oral; Duration: 90 Active amLODIPine Besylate 10 MG Tablet Oral; Duration: 90 Active MiraLax (colon prep) 17 GM/SCOOP Powder mixed with Gatorade or Crystal Light Orally begin at 5:00 p.m. the day before the procedure; Duration: 1 day 08/03/2021 Active Immunizations Vaccine Route Administration Date Status Comme nts Flu vaccine no Preserv 3 and > Unknown 02/21/2016 Admin istered Flu vaccine no Preserv 3 and > Unknown 02/28/2017 Admin istered Influenza Unknown 01/04/2021 Administered Social History Social History Drugs/Alcohol: Social Info Question Answer Notes Alcohol Screen Did you have a drink containing alcohol in the past year? No Points 0 Interpretation Negative Additional Details Category Social Info Options Details Miscellaneous: Marital status: Occupation: disabled Section Notes: He does use cannabis Problems Problem Type SNOMED Code ICD Code Onset Dates Problem Status W/U Status Risk Notes Problem Colon cancer screening (098389454) Colon cancer screening (Z12.11) Active confirmed Problem Gastro-esophageal reflux disease without esophagitis (286132764) Gastro-esophageal reflux disease without esophagitis (K21.9) Active confirmed Problem Hypertension (13473907) Hypertension (I10) Active confirmed Problem Gastroesophageal reflux disease with esophagitis (disorder) (628917331) Gastroesophageal reflux disease with esophagitis without hemorrhage (K21.00) Active confirmed Plan Of Treatment Future Test Test Name Order Date COLONOSCOPY 02/28/2011 UPPER GI ENDOSCOPY 06/06/2016 COLONOSCOPY 08/03/2021 Insurance Providers Payer Name Payer Address Payer Phone Subscriber Number Group Number Insured Name Patient Relationship to Insured Coverage Start Date Coverage End Date MEDICARE OF [place] [address] [place] [id number] BELKIS FOOTE Self - patient is the insured [facility]ICA[id number] [address] [place] [address] [phone] [id number] BELKIS FOOTE Self - patient is the insured Medical (General) History Medical History History ICD Code hypertension type II diabetes depression TIA 2003 NUBIA/CPAP Gastroesophageal reflux disease, EGD/17, mild distal esophagitis Surgical History Surgery Date(Month/Year) cholecystectomy appendectomy arthroscopic knee surgery
--- OUTSIDE RECORDS SUMMARY | 2025-04-08 09:41 | XMS_ITS | Clinical Summary ---
Author Organization [address] [place] [address] [address] [place] [address] Phone Care Team Providers Care Clinical Manager Home Care Name Role Phone Desean Campbell Primary Care Provider [phone] Allergies No known active allergies Medications amLODIPine (NORVASC) 10 mg tablet Take 1 tablet (10 mg total) by mouth 1 (one) time each day. Active lisinopriL (PRINIVIL,ZESTRI L) 10 mg tablet Take 1 tablet (10 mg total) by mouth 1 (one) time each day. Active magnesium, amino acid chelate, 133 mg tablet Take 1 tablet (133 mg total) by mouth 1 (one) time each day. Active Active Problems Problem Noted Date Diagnosed Date Lymphedema 03/20/2025 History of stroke 03/19/2025 Anxiety 03/19/2025 Class 3 severe obesity due t o excess calories with serious comorbidity and body mass index (BMI) of 50.0 to 59.9 in adult (CMS/[facility] V24, CMS/[facility] V28) 03/19/2025 Primary hypertension 03/19/2025 Encounters Date Type Department Care Team Description 03/19/2025 2:00 PM EST Consult Bariatric Surgery - [place] [address] [facility] [address] [place] [address] Gilberto Romero MD Class 3 severe obesity due to excess calories with serious comorbidity and body mass index (BMI) of 50.0 to 59.9 in adult (CMS/HCC V24, CMS/[facility] V28) (Primary Dx); Primary hypertension; Anxiety; History of stroke; Exercise counseling; Dietary counseling from Last 3 Months Surgical History Surgery Date Site/Laterality Comments CHOLECYSTECTOMY APPENDECTOMY Medical History Medical History Date Comments Basal cell carcinoma (BCC) Depression Anxiety Hypertension Family History Medical History Relation Name Comments Alcohol abuse Father amputation Mother Relation Name Status Comments Father Mother Social History Tobacco Use Types Packs/Day Years Used Date Smoking Tobacco: Former Cigarettes Smokeless Tobacco: Never Tobacco Cessation:Counseling Given: Not Answered Alcohol Use Standard Drinks/Week Comments Not Currently 0 (1 standard drink = 0.6 oz pur e alcohol) Sex and Gender Information Value Date Recorded Sex Assigned at Not on file Legal Sex Male 12:02 PM EDT Gender Identity Not on file Sexual Orientation Not on file Obstetrics History Last Filed Vital Signs Vital Sign Reading Time Taken Comments Blood Pressure 151/83 03/19/2025 2:07 PM EST Pulse 98 03/19/2025 2:07 PM EST Temperature 36.4 C (97.5 F) 03/19/2025 2:07 PM EST Respiratory Rate - - Oxygen Saturation - - Inhaled Oxygen Concentration - - Weight 186 kg (409 lb) 03/19/2025 2:07 PM EST Height 185.4 cm (6' 1 ) 03/19/2025 2:07 PM EST Body Mass Index 53.96 03/19/2025 2:07 PM EST Plan of Treatment Upcoming Encounters Date Type Department Care Team (Late st Contact Info) Description 06/17/2025 11:00 AM EST Telemedicine Bariatric Surgery - [address] [place] [address] Rachel Anderson, RD [address] [place] [address] Health Maintenance Due Date Last Done Comments Colorectal Cancer Screening: Colonoscopy 1960 Hepatitis B Vaccines (2 of 3 - 19+ 3-dose series) 07/29/2003 07/01/2003 Zoster Vaccines (1 of 2) 2008 Depression Screening 05/06/2024 Abdominal Aortic Aneurysm (AAA) Screen 01/01/2025 Cholesterol Screening (Lipid Panel) 01/01/2025 Falls Risk Assessment 01/01/2025 Hepatitis C Screening 01/01/2025 Medicare Annual Wellness Visit 01/01/2025 Social Influencers of Health Screening 01/01/2025 COVID-19 Vaccine ( season) 2025 10/05/2024, 01/25/2024, 02/05/2023, Additional history exists Influenza Vaccine (#1) 2025 , 02/05/2023, 03/24/2022, Additional history exists Hypertension/CHF/CAD Annual BMP Blood Test 03/19/2025 DTaP,Tdap,and Td Vaccines (2 - Td or Tdap) 01/24/2033 01/24/2023 Pneumococcal Vaccine: 50+ Years Completed 02/05/2023, 10/19/2014 RSV Immunization Adult Patients Completed 02/18/2023 HIB Vaccines Aged Out No longer eligi [...] to complete this topic RSV Immunization Patients Under 20 months Aged Out No longer eligible based on patient's age to complete this topic Varicella Vaccines Aged Out No longer eligible based on patient's age to complete this topic Insurance MEDICARE MEDICAID - [place] Care Teams Clinical Manager Home Care Relationship Specialty Start Date End Date Desean Campbell PA [address] [place] [id number] PCP - General 01/01/25
[2025-04-08 10:16] LABS: MANUAL DIFF FLAG NO
[2025-04-08 10:38] LABS: Hematocrit 41.0 % (42.0-52.0); Hemoglobin 13.7 g/dl (14.0-18.0); Imm Gran Abs Auto 0.04 X10*3/uL (0.00-0.03); Imm Gran Pct Auto 0.4 % (0.0-0.4); Lymphocytes Absolute Auto 1.9 X10*3/uL (1.2-4.9); Mean Corpuscular HGB Conc 33.4 g/dl (31.0-36.0); Mean Corpuscular Hemoglobin 28.2 pg (27.0-33.0); Mean Corpuscular Volume 84.4 fL (80.0-98.0); NRBC Abs Auto 0.000 X10*3/uL (0.0-0.012); NRBC Pct Auto 0.0 /100WBC (0.0-0.2); Platelet Count 249 X10*3/uL (160-400); Red Blood Count 4.86 X10*6/uL (4.60-5.80); White Blood Count 9.7 X10*3/uL (4.8-10.8)
[2025-04-08 11:48] LABS: Alanine Aminotransferase 15 U/L (0-40); Albumin Level 4.0 g/dL (3.5-5.0); Alkaline Phosphatase 70 U/L (39-117); Anion Gap 12 (12-20); Aspartate Amino Transferase 17 U/L (5-37); Blood Urea Nitrogen 20 mg/dL (9-16); Calcium 8.9 mg/dL (8.4-10.2); Carbon Dioxide 23 mmol/L (22-29); Chloride 106 mmol/L (96-108); Cholesterol 147 mg/dL (<200); Estimated Glomerular Filt Rate > 60; HDL Cholesterol 49 mg/dL (>40); Potassium 3.9 mmol/L (3.3-5.1); Sodium 137 mmol/L (135-145); Total Protein 7.3 g/dL (6.5-8.0); Triglycerides 57 mg/dL (<150)
[2025-04-08 13:25] LABS: Appearance Urine Clear; Glucose Urine UA Negative (Negative); PH 6.5 (5.0-9.0); Specific Gravity - Urine 1.025 (1.005-1.025); UMIC TRIGGER UACC YES
== END 2025-04-08 08:57 | disposition home or self-care (01) ==
LOC: HO.HMGCLDS 08:56
PROVIDERS: Absent Provider Internal Medicine; PCP Nurse Practitioner Family; Visit Provider Nurse Practitioner Family
DX: Z00.01 Encounter for general adult medical examination with abnormal findings (principal); Z12.5 Encounter for screening for malignant neoplasm of prostate; Z13.6 Encounter for screening for cardiovascular disorders; Z13.29 Encounter for screening for other suspected endocrine disorder; R73.01 Impaired fasting glucose
CPT/HCPCS: 36415; 80053; 80061; 81001; 83036; 84153; 84443; 85025; 99212

== ENCOUNTER 2025-04-08 09:38 | Outpatient (AMB) | payer MEDICARE, MEDICAID, SELFPAY ==
[2025-04-08 09:48] VITALS: BP 120/82; PULSE 62; RESP 16; O2SAT 98; BMI 53.8
--- NOTE | 2025-04-08 09:48 | MHC.PC.OV ---
Vital Signs 04/08/25 09:48 Height 6 ft 1 in Weight 408 lb BMI 53.8 BP 120/82 Blood Pressure Location Lt brachial Position Sitting Respiration 16 Pulse 62 Pulse Source Pulse Oximeter Pulse Oximetry (%) 98 Oxygen Delivery Method Room Air Intake Visit Reasons: follow up Consumer Loan Officer Required: No Accompanied by: Self / Same As Patient Allergies codeine (CODEINE) Allergy (Severe, Verified 04/08/25 09:51) ANAPHYLAXIS, hives adhesive tape Adverse Reaction (Mild, Verified 04/08/25 09:51) Irritable dust Allergy (Unknown, Uncoded 04/08/25 09:51) swelling Tobacco use date assessed: 04/08/25 Fall risk assessment: No Falls in past year Last assessed Fall Risk: 04/08/25 Dental Screening Dental Screen Date: 04/08/25 Did you have a dental visit in the last 12 months?: Yes Did you have a dental problem in the last 6 months where you did not have access to dental care?: No Was dental information given to patient?: Patient has dentist HPI follow up HPI Details Chief Complaint The patient presented for a follow-up appointment for management of his hypertension. History of Present Illness The patient is a 64 year old male presenting for follow-up for hypertension. His blood pressure has been stable, and he is followed by a route relief driver. He has been working on his diet. The patient has bilateral lower extremity edema, which is most likely consistent with venous insufficiency, and he reports improvement with the use of compression stockings. He is also morbidly obese. Regarding his mental health, his anxiety and depression are reportedly stable and improving, though he is experiencing significant stress at home while caring for his girlfriend. He has requested a referral to a therapist but denies any suicidal or homicidal ideation. Social History - Nutrition: The patient reports he has been working on his diet. - Stressors: He reports significant stress related to caring for his girlfriend. - Mental Health: The patient is requesting a therapist. Health Maintenance - The patient follows up with cardiology. - The patient reports he has been working on improving his diet. Review of Systems - Cardiovascular: Denies chest pain. - Neurological: Denies headaches and dizziness. - Eyes: Denies blurred vision. - Musculoskeletal: Reports bilateral extremity edema. - Psychiatric: Denies any suicidal or homicidal ideation. Physical Exam General: Cooperative, healthy appearing, comfortable, no acute distress and well developed, morbidly obese Orientation: Patient oriented x3 Limitations: No limitations Head: Normal to inspection Ears: Hearing grossly normal bilaterally Nose: Normal external nose present Face and sinus: Normal facial exam Eyes: Appearance normal, both eyes and all related structures Neck: Normal visual inspection and Yes full ROM Respiratory: Normal respiratory effort and able to speak in complete sentences. Clear to auscultation bilaterally Cardiovascular: Regular rate and rhythm. Normal S1 and S2 GI: Normal to inspection. Soft to palpation and nontender Skin: No rashes or lesions noted Neuro: Patient oriented x3 Extremities: Edema present in bilateral extremities, wears compression stockings which help, most likely due to venous insufficiency. Results - Labs: Blood work was drawn today; results are pending and will be reviewed upon receipt. Plan 1. Hypertension The patient's hypertension is stable. He will continue his current management, including dietary changes and follow-up with cardiology. A follow-up is scheduled in 4 months. Lab results from today will be reviewed once they are available. 2. Venous Insufficiency The patient experiences bilateral lower extremity edema, which is likely due to venous insufficiency. He reports benefit from compression stockings and should continue their use (also on amlodipine) 3. Morbid Obesity The patient is morbidly obese and reports he has been working on his diet. Continued efforts with dietary modification are encouraged. 4. Anxiety And Depression The patient reports significant life stress but feels his anxiety and depression are fairly stable. Given his request and the circumstances, a referral will be made to the behavioral health staff to arrange an appointment with a therapist. Discussion Notes I advised the patient that his hypertension is well-managed and stable. We discussed that his bilateral lower extremity edema is likely due to venous insufficiency and that he should continue using compression stockings as they provide relief. In light of the significant stress he is under, I highly recommended that he speak with a therapist and informed him that our behavioral health staff, Maggie, will contact him to facilitate this. I also informed him that we will review his lab results as soon as they are available and scheduled a follow-up appointment in 4 months. Patient Instructions - Continue to focus on your diet. - Keep wearing your compression stockings for the swelling in your legs, as they are helping. - Our behavioral health specialist, Maggie, will contact you to set up an appointment with a therapist. - Please schedule a follow-up visit with our office in 4 months. - We will call you with your lab results when they are ready. [facility] Medical History Screening PSA (prostate specific antigen) Encounter for routine adult physical exam with abnormal findings Basal cell carcinoma of left eye Chest discomfort Lower respiratory infection (e.g., bronchitis, pneumonia, pneumonitis, pulmonitis) Pre-op examination Rash Blurring of vision Difficulty sleeping Skin infection, bacterial Right upper quadrant pain Wheezing on auscultation Chest wall pain Chest pain Pneumonia COVID-19 Physical exam Upset stomach Screening for colon cancer Medicare annual wellness visit, subsequent COVID-19 vaccine series completed Agoraphobia Anxiety Impaired fasting glucose GERD (gastroesophageal reflux disease) Depression TIA (transient ischemic attack) Sleep apnea Memory deficit Morbid obesity Toenail fungus Hypertension, essential Gait difficulty Surgical History S/P Mohs surgery for basal cell carcinoma H/O colonoscopy Hx of arthroscopic knee surgery Hx of appendectomy Hx of cholecystectomy History of esophagogastroduodenoscopy (EGD) Family History Sister Dementia Father Heart attack Other Substance use disorder Social History Housing: House Are you a primary post acute care nurse to a significant other at home: No Do you presently have visiting nurse or other home services: No Alcohol intake: current Alcohol intake frequency: holidays/special occasions only Patient Tobacco Use Status: Former Tobacco user (over 20 years ago he quit) Tobacco use type: Cigarette e-Cigarette/Vaping Use: Never Used Second Hand Smoke Exposure: No Substance Use Type: Marijuana service: No Current occupational status: other Cognitive needs: No Hearing needs: No Vision needs: Yes Questionnaire PHQ-9 Over the last 2 weeks, how often have you been bothered by any of the following problems? 55081 - PHQ-9 Billing: Patient declined-do not bill Source: Developed by Drs. Srinivasan Valdez, Whit Vogt, Travon Gunn and colleagues, with an educational tahira from [employer]. Thrive Questionnaire Date Thrive assessed: 05/19/24 I am a: Patient What is your living situation today?: I choose not to answer this question Within the past 12 months, did the food you bought not last and you didn't have the money to get more?: I choose not to answer this question Within the past 12 months, did you worry whether your food would run out before you got money to buy more?: I choose not to answer this question Do you have trouble paying for medicines?: I choose not to answer this question Do you have trouble getting transportation to medical appointments?: I choose not to answer this question Do you have trouble paying your heating and electricity bill?: I choose not to answer this question Do you have trouble taking care of your child, family member or friend?: I choose not to answer this question Do you have trouble with day-to-day activities such as bathing, preparing meals, shopping, managing finances, etc.?: I choose not to answer this question Are you currently unemployed and looking for a job?: I choose not to answer this question Are you interested in more education?: I choose not to answer this question Please select the resources that you would like help with: None Currently or been in a relationship where the following occur: I choose not to answer THRIVE Score: 0 MAICOL-7 AMB Questionnaire MAICOL-7 Date MAICOL - 7 assessed: 09/21/24 Source: Developed by Drs. Srinivasan Valdez, Whit Vogt, Travon Gunn and colleagues, with an educational tahira from [employer]. Physical exam (Primary Care) Vital Signs: Last Vital Signs Pulse 62 04/08/25 09:48 Resp 16 04/08/25 09:48 BP 120/82 04/08/25 09:48 Pulse Ox 98 04/08/25 09:48 Oxygen Delivery Method Room Air 04/08/25 09:48 BMI result Body Mass Index 53.8 Tobacco/Smoking Status: Tobacco use Status Tobacco use date assessed 04/08/25 04/08/25 09:55 Patient Tobacco Use Status Former Tobacco user (over 20 04/08/25 09:50 years ago he quit) Tobacco use type Cigarette 04/08/25 09:50 e-Cigarette/Vaping Use Never Used 04/08/25 09:50 Thrive Assessment: Date of Thrive Assessment Date Thrive assessed 05/19/24 04/08/25 09:50 Currently or been in a relationship where the following occur: I choose not to answer Coding Level of Care Code Est Pt Level 3 (28647) Diagnoses Hypertension, essential I10 Anxiety F41.9 Depression, unspecified depression type F32.9 Depression Type: unspecified Assessment & Plan Assessment & Plan (1) Hypertension, essential: Code(s): I10 - Essential (primary) hypertension Category: Medical (2) Anxiety: Code(s): F41.9 - Anxiety disorder, unspecified Category: Medical (3) Depression: Code(s): F32.9 - Major depressive disorder, single episode, unspecified Category: Medical Qualifiers: Depression Type: unspecified Qualified Code(s): F32.9 - Major depressive disorder, single episode, unspecified Plan .
== END 2025-04-08 10:52 | disposition home or self-care (01) ==
LOC: HO.HMCC 09:39
PROVIDERS: PCP Nurse Practitioner Family; Visit Provider Nurse Practitioner Family
DX: I10 Essential (primary) hypertension (principal); F41.9 Anxiety disorder, unspecified; F32.9 Major depressive disorder, single episode, unspecified

== ENCOUNTER → 2025-04-15 13:00 | Outpatient (BNVA) | payer MEDICARE, MEDICAID, SELFPAY | PROVIDERS: PCP Nurse Practitioner Family | DX: E11.9 Type 2 diabetes mellitus without complications (principal) | CPT/HCPCS: 99211 ==